=== PATIENT | female | born 1945 | race Caucasian/White ===

== ENCOUNTER → 2018-07-01 | Outpatient (CLI) | payer MEDICARE, OTHER ==
--- NOTE | 2018-07-01 15:43 | MR ---
EXAMINATION TYPE: MR cervical spine wo con DATE OF EXAM: 07/01/2018 COMPARISON: None HISTORY: Spinal stenosis, cervicothoracic region, stiffness TECHNIQUE: Multiplanar, multisequence images of the cervical spine were acquired. C2-C3: No evidence for degenerative disc disease. No disc bulge/herniation or protrusion. No Canal stenosis. Foramina are patent bilaterally. C3-C4: No disc herniation or significant stenosis. Some mild foraminal encroachment present due to un covertebral joint hypertrophy, facet arthropathy on the left. C4-C5: Bilateral foraminal encroachment is present. There is posterior extension of endplate disc com plex, broad-based posterior disc bulge causing mild anterior mass effect on the thecal sac. No signif icant central stenosis. C5-C6: Posterior extension of broad-based disc bulge causes mild anterior mass effect on the thecal s ac. There is some mild foraminal encroachment bilaterally. C6-C7: No evidence for degenerative disc disease. No disc bulge/herniation or protrusion. No Canal stenosis. Foramina are patent bilaterally. C7-T1: No evidence for degenerative disc disease. No disc bulge/herniation or protrusion. No Canal stenosis. Foramina are patent bilaterally. Cervical segments are intact. There is normal alignment. Cervical spinal cord is of normal signal. Multilevel spondylosis is present, there is endplate discogenic marrow signal change at C4-5, C5-6 w ith associated loss of disc height and signal compatible with disc desiccation and degenerative disc disease. Craniovertebral junction relationships are within normal limits. Some fluid signal present at the level of the vallecula. This may represent retained secretions. Thoracic spinal curvature is s uspected. IMPRESSION: Degenerative disc disease as described. Possible thoracic scoliosis. Additional findings above.
== END | disposition home or self-care (01) ==
LOC: RADMRIMAIN 12:20
PROVIDERS: ATTEND Psychiatry & Neurology Neurology
DX: M50.321 Other cervical disc degeneration at C4-C5 level (principal); M47.812 Spondylosis without myelopathy or radiculopathy, cervical region; M46.82 Other specified inflammatory spondylopathies, cervical region
CPT/HCPCS: 72141

== ENCOUNTER 2019-01-22 13:15 | Day surgery (SDC) | payer OTHER, MEDICARE ==
[2019-01-19 14:02] VITALS: BMI 31.7
[~2019-01-22 13:15] MED LIST: LACTATED RINGERS 1,000 ML IV SCH
[2019-01-22] MEDS ORDERED: ONDANSETRON 4 MG/2 ML VIAL IVP ONE (13:50)
[2019-01-22] MEDS ORDERED: LIDOCAINE 1% 20 ML VIAL (10MG/ML) FOR IV START INTRADERMA ONE (13:50)
[2019-01-22] MEDS ORDERED: DEXAMETHASONE SOD PHOSPHATE 10 MG/ML 1 ML VIAL IV ONE (13:50)
[2019-01-22 14:02] VITALS: TEMP 98.4
[2019-01-22] MEDS ORDERED: PROPOFOL 10 MG/ML 20 ML VIAL IV ONE (14:11)
--- NOTE | 2019-01-22 14:31 | P.PCN ---
Date of Procedure: 01/22/19 Procedure(s) Performed: BRIEF HISTORY: Patient is a 73-year-old pleasant female, scheduled for an elective colonoscopy as a part of evaluation of intermittent rectal bleeding and prior history of colon polyps. PROCEDURE PERFORMED: Colonoscopy. PREOPERATIVE DIAGNOSIS: History of colon polyps/rectal bleeding. IV sedation per Anesthesia. PROCEDURE: After informed consent was obtained, the patient, was brought into the endoscopy unit. IV sedation was administered by Anesthesia under continuous monitoring. Digital rectal examination was normal. Initially the Olympus CF-160 flexible video colonoscope was then inserted in the rectum, gradually advanced into the cecum without any difficulty. Careful examination was performed as the scope was gradually being withdrawn. Ileocecal valve and the appendiceal orifice were visualized and appeared normal. Prep was excellent. Mucosa of the cecum, ascending colon, transverse colon, descending colon, sigmoid colon, and rectum appeared normal. 2-3 mm small proximal rectal polyp status post removal by cold biopsy Scattered sigmoid diverticulosis seen. Retroflexion was performed in the rectum and no lesions were seen. The patient tolerated the procedure well. IMPRESSION: 3 mm proximal rectal polyp status post removal by biopsy This patient scattered sigmoidal diverticulosis RECOMMENDATIONS: Findings of this examination were discussed with the patient less her family. She was advised to follow with the biopsy results and have a repeat surveillance coloscopy in 5 years.
[2019-01-22 14:37] VITALS: RESP 16
[2019-01-22 14:51] VITALS: BP 154/84; PULSE 58
== END 2019-01-22 15:13 | disposition home or self-care (01) ==
LOC: ORWHC2ENDO 13:15
PROVIDERS: ATTEND Internal Medicine Gastroenterology
DX: K62.1 Rectal polyp (principal); K57.30 Diverticulosis of large intestine without perforation or abscess without bleeding; K62.5 Hemorrhage of anus and rectum; Z86.010 Personal history of colon polyps; I10 Essential (primary) hypertension; Z87.891 Personal history of nicotine dependence; Z90.5 Acquired absence of kidney; G20 Parkinson's disease; Z98.51 Tubal ligation status; Z79.1 Long term (current) use of non-steroidal anti-inflammatories (NSAID); Z79.899 Other long term (current) drug therapy; Z88.5 Allergy status to narcotic agent
CPT/HCPCS: 88305; 45380; J1100; J2405; J2704

== ENCOUNTER → 2019-04-02 | Outpatient (CLI) | payer MEDICARE ==
--- NOTE | 2019-04-02 12:53 | XR ---
EXAMINATION TYPE: XR ankle complete RT DATE OF EXAM: 04/02/2019 COMPARISON: NONE HISTORY: Pain TECHNIQUE: Frontal, lateral and oblique images of the right ankle are obtained. COMPARISON: None. FINDINGS: There is no acute fracture/dislocation evident. The joint spaces appear within normal albrecht its. Soft tissue swelling noted greatest laterally. IMPRESSION: There is no acute fracture or dislocation seen.
--- NOTE | 2019-04-02 13:20 | US ---
EXAMINATION TYPE: US venous doppler duplex LE RT DATE OF EXAM: 04/02/2019 1:15 PM COMPARISON: NONE CLINICAL HISTORY: DVT. rt leg pain SIDE PERFORMED: Right TECHNIQUE: The lower extremity deep venous system is examined utilizing real time linear array sonog javier with graded compression, doppler sonography and color-flow sonography. VESSELS IMAGED: External Iliac Vein (EIV) Common Femoral Vein Deep Femoral Vein Greater Saphenous Vein * Femoral Vein Popliteal Vein Small Saphenous Vein * Proximal Calf Veins (* superficial vessels) Right Leg: Negative for DVT IMPRESSION: No evidence for DVT at this time.
== END | disposition home or self-care (01) ==
LOC: RADUSWWP 12:25
PROVIDERS: ATTEND Psychiatry & Neurology Neurology
DX: M25.571 Pain in right ankle and joints of right foot (principal); S82.831A Other fracture of upper and lower end of right fibula, initial encounter for closed fracture; M25.471 Effusion, right ankle; I82.401 Acute embolism and thrombosis of unspecified deep veins of right lower extremity

== ENCOUNTER → 2019-05-04 | Outpatient (CLI) | payer MEDICARE | END | disposition home or self-care (01) | LOC: LABWHC1 11:35 | PROVIDERS: ATTEND Orthopaedic Surgery | DX: E55.9 Vitamin D deficiency, unspecified (principal); M25.571 Pain in right ankle and joints of right foot; G20 Parkinson's disease; M84.363A Stress fracture, right fibula, initial encounter for fracture | CPT/HCPCS: 36415; 82306 ==

== ENCOUNTER → 2019-07-06 | Outpatient (CLI) | payer MEDICARE, OTHER ==
--- NOTE | 2019-07-06 15:34 | XR ---
EXAMINATION TYPE: XR Hip Complete RT DATE OF EXAM: 07/06/2019 CLINICAL HISTORY: pain TECHNIQUE: AP and frogleg views of the right hip are obtained. COMPARISON: None. FINDINGS: There is no acute fracture/dislocation evident. The joint space appears mildly narrowed. . The overlying soft tissue appears unremarkable. IMPRESSION: 1. There is no acute fracture or dislocation. ICD 10 NO FRACTURE, INITIAL EVALUATION
== END | disposition home or self-care (01) ==
LOC: RADXRYALE 14:58
PROVIDERS: ATTEND Family Medicine
DX: M25.551 Pain in right hip (principal)
CPT/HCPCS: 73502

== ENCOUNTER → 2020-06-22 | Outpatient (CLI) | payer MEDICARE, OTHER ==
--- NOTE | 2020-06-23 09:08 | CT ---
EXAMINATION TYPE: CT abdomen and pelvis wo con DATE OF EXAM: 06/23/2020 COMPARISON: CT abdomen pelvis 08/30/2010 HISTORY: 75-year-old female LLQ pain and tenderness. Right upper quadrant abdominal tenderness. Llamas e in bowel habits and early satiety. Hx Parkinson's TECHNIQUE: Contiguous axial scanning of the abdomen and pelvis without IV contrast. Coronal and sagit miguel reconstructions performed. CT DLP: 1172 mGycm Automated exposure control for dose reduction was used. FINDINGS: Heart upper limits of normal size without pericardial effusion. Scattered LAD and RCA coronary calcif ications are present. Nonspecific 4.5 cm air cyst at the left base unchanged from 2011, either pneuma tocele or emphysematous cyst. Bilobed cyst within the posterior right hepatic dome redemonstrated measuring up to 3.8 cm, unchanged from 2011. Otherwise, noncontrast appearance of the liver, gallbladder, adrenal glands, right kidney with extrar enal pelvis, spleen, and pancreas show no gross abnormality. Some minimal nodular tissue within the left renal fossa remains unchanged from 2011. Mild to moderate aphthous carotid calcifications infrarenal abdominal aorta and mild within the proxi mal common iliac arteries. Mild stool burden. Sigmoid diverticulosis. No pericolonic inflammatory change. Bladder partially distended. Possible minimal perivesicular fat stranding along the anterior wall, ax ial image 99 and 80. Uterus anteverted. Both ovaries are visualized. Pelvic phlebolith. No abnormal f luid collection in the pelvis or pelvic lymphadenopathy. Bones: Moderate degenerative change right hip and mild at the left hip. Advanced degenerative disc di sease L5-S1 and moderate at L4-L5. Hypertrophic facet arthropathy lower lumbar spine with trace grade 1 anterolisthesis L4-L5. IMPRESSION: 1. ABSENT LEFT KIDNEY. 2. SIGMOID DIVERTICULOSIS WITHOUT ACUTE DIVERTICULITIS. 3. POSSIBLE MINIMAL PERIVESICULAR FAT STRANDING ALONG THE ANTERIOR BLADDER WALL. CORRELATE TO EXCLUDE CYSTITIS. 4. STABLE 3.8 CM RIGHT HEPATIC CYST, CAD, AND A PNEUMATOCELE OR EMPHYSEMATOUS CYST AT THE LEFT BASE.
== END | disposition home or self-care (01) ==
LOC: RADCTMAIN 14:50
PROVIDERS: ATTEND Family Medicine
DX: K57.30 Diverticulosis of large intestine without perforation or abscess without bleeding (principal); K76.89 Other specified diseases of liver; Z90.5 Acquired absence of kidney
CPT/HCPCS: 71250; 74176

== ENCOUNTER 2020-06-30 14:45 | Emergency (ER) | payer MEDICARE, OTHER ==
[2020-06-30 14:54] VITALS: RESP 18
--- NOTE | 2020-06-30 15:33 | XR ---
EXAMINATION TYPE: XR KUB DATE OF EXAM: 06/30/2020 3:21 PM CLINICAL HISTORY: Abdominal pain. TECHNIQUE: Two Upright KUB images of the abdomen are obtained. COMPARISON: CT June 22, 2020. FINDINGS: Scattered gas is seen in non-distended small bowel loops. Gas and fecal material is seen in non-distended colon. Underlying dextroconvex scoliosis centered about the lumbar spine redemonstrate d. No free air. No suspicious calcification. Lung bases show lateral left basilar linear scarring and /or atelectasis. Moderate to severe axial joint space loss and spurring right hip redemonstrated. IMPRESSION: Overall nonobstructive bowel gas pattern remains present. No significant change from recent CT.
--- NOTE | 2020-06-30 15:38 | ED ---
General Adult HPI - General Chief complaint: Abdominal Pain Stated complaint: Constipated Time Seen by Provider: 06/30/20 14:45 Source: patient, RN notes reviewed, old records reviewed Mode of arrival: ambulatory Limitations: no limitations - History of Present Illness Initial comments: This is a 75-year-old female presents emergency Department complaining that for the past 6 weeks she's had issues with constipation. Patient over the last 2 weeks ago it's really worse. Patient states she's taking quite a bit of medication to help with the bowel movements. Patient states she has not had a complete bowel movement quite a while but she is having small bowel movements all along. Patient states she has an appointment with Dr. kurtz next Friday but she states the pain continues to be there and she doesn't know if she can make it Friday. Patient denies any fever chills per patient denies any nausea vomiting. Patient denies chest pain difficult breathing shortness of breath. Patient denies dysuria hematuria urinary frequency. - Related Data Home Medications Medication Instructions Recorded Confirmed Carbidopa-Levodopa 25-100 mg 2 tab PO TID@0700,1200,1600 01/19/19 06/30/20 [Sinemet 25-100] Losartan Potassium [Cozaar] 100 mg PO DAILY 01/19/19 06/30/20 Naproxen Sodium [Aleve] 220 mg PO DAILY PRN 01/19/19 06/30/20 Turmeric Root Extract [Turmeric] 500 mg PO DAILY 01/19/19 06/30/20 Baclofen [Lioresal] 20 mg PO HS 06/30/20 06/30/20 Calcium 750mg 750 mg PO DAILY 06/30/20 06/30/20 Cholecalciferol [Vitamin D3 (25 25 mcg PO DAILY 06/30/20 06/30/20 Mcg = 1000 Iu)] Fish Oil/Dha/Epa [Fish Oil 1,200 1 cap PO DAILY 06/30/20 06/30/20 mg Fish Oil] Meloxicam [Mobic] 7.5 mg PO DAILY 06/30/20 06/30/20 Allergies Allergy/AdvReac Type Severity Reaction Status Date / Time morphine Allergy Rash/Hives Verified 06/30/20 16:13 Review of Systems ROS Statement: Those systems with pertinent positive or pertinent negative responses have been documented in the HPI. ROS Other: All systems not noted in ROS Statement are negative. Past Medical History Past Medical History: Hypertension, Neurologic Disorder, Renal Disease Additional Past Medical History / Comment(s): parkinsons,has mobility balance issues-uses cane when needed, has only rt kidney History of Any Multi-Drug Resistant Organisms: None Reported Past Surgical History: Appendectomy, Tubal Ligation Additional Past Surgical History / Comment(s): surgery for "floating" rt kidney Past Anesthesia/Blood Transfusion Reactions: Postoperative Nausea & Vomiting (PONV) Past Psychological History: No Psychological Hx Reported Smoking Status: Never smoker Past Alcohol Use History: Daily Past Drug Use History: None Reported - Past Family History Daughter(s) Family Medical History: Diabetes Mellitus General Exam - General Exam Comments Initial Comments: GENERAL: Patient is well-developed and well-nourished. Patient is nontoxic and well- hydrated and is in mild distress. ENT: Neck is soft and supple. No significant lymphadenopathy is noted. Oropharynx is clear. Moist mucous membranes. Neck has full range of motion without eliciting any pain. EYES: The sclera were anicteric and conjunctiva were pink and moist. Extraocular movements were intact and pupils were equal round and reactive to light. Eyelids were unremarkable. PULMONARY: Unlabored respirations. Good breath sounds bilaterally. No audible rales rhonchi or wheezing was noted. CARDIOVASCULAR: There is a regular rate and rhythm without any murmurs gallops or rubs. ABDOMEN: Soft and nontender with normal bowel sounds. SKIN: Skin is clear with no lesions or rashes and otherwise unremarkable. NEUROLOGIC: Patient is alert and oriented x3. Cranial nerves II through XII are grossly intact. Motor and sensory are also intact. Normal speech, volume and content. Symmetrical smile. MUSCULOSKELETAL: Normal extremities with adequate strength and full range of motion. No lower extremity swelling or edema. No calf tenderness. LYMPHATICS: No significant lymphadenopathy is noted PSYCHIATRIC: Normal psychiatric evaluation. Limitations: no limitations Course Vital Signs 06/30/20 14:47 Temperature 97.8 F Pulse Rate 63 Respiratory 18 Rate Blood Pressure 152/91 O2 Sat by Pulse 95 Oximetry Medical Decision Making - Medical Decision Making I reviewed the CAT scan 2 weeks ago and there was nothing on the CAT scan to explain the patient's pain. KUB shows no acute abnormality. Lab work was reviewed and was all normal. - Lab Data Result diagrams: 06/30/20 15:38 06/30/20 15:38 Lab Results 06/30/20 06/30/20 06/30/20 Range/Units 15:38 15:38 15:43 WBC 7.2 (3.8-10.6) k/uL RBC 4.17 (3.80-5.40) m/uL Hgb 13.9 (11.4-16.0) gm/dL Hct 41.2 (34.0-46.0) % MCV 98.8 (80.0-100.0) fL MCH 33.4 (25.0-35.0) pg MCHC 33.9 (31.0-37.0) g/dL RDW 12.3 (11.5-15.5) % Plt Count 228 (150-450) k/uL MPV 9.1 Neutrophils % 61 % Lymphocytes % 26 % Monocytes % 8 % Eosinophils % 2 % Basophils % 1 % Neutrophils # 4.4 (1.3-7.7) k/uL Lymphocytes # 1.9 (1.0-4.8) k/uL Monocytes # 0.6 (0-1.0) k/uL Eosinophils # 0.2 (0-0.7) k/uL Basophils # 0.0 (0-0.2) k/uL Sodium 141 (137-145) mmol/L Potassium 3.9 (3.5-5.1) mmol/L Chloride 102 (98-107) mmol/L Carbon Dioxide 30 (22-30) mmol/L Anion Gap 9 mmol/L BUN 22 H (7-17) mg/dL Creatinine 1.30 H (0.52-1.04) mg/dL Est GFR (CKD-EPI)AfAm 47 (>60 ml/min/1.73 sqM) Est GFR (CKD-EPI)NonAf 40 (>60 ml/min/1.73 sqM) Glucose 98 (74-99) mg/dL Calcium 10.5 H (8.4-10.2) mg/dL Total Bilirubin 0.8 (0.2-1.3) mg/dL AST 24 (14-36) U/L ALT 10 (4-34) U/L Alkaline Phosphatase 62 (38-126) U/L Total Protein 7.6 (6.3-8.2) g/dL Albumin 4.6 (3.5-5.0) g/dL Urine Color Light Yellow Urine Appearance Clear (Clear) Urine pH 6.5 (5.0-8.0) Ur Specific [place] 1.008 (1.001-1.035) Urine Protein Negative (Negative) Urine Glucose (UA) Negative (Negative) Urine Ketones Negative (Negative) Urine Blood Negative (Negative) Urine Nitrite Negative (Negative) Urine Bilirubin Negative (Negative) Urine Urobilinogen <2.0 (<2.0) mg/dL Ur Leukocyte Esterase Small H (Negative) Urine RBC 1 (0-5) /hpf Urine WBC 8 H (0-5) /hpf Ur Squamous Epith Cells <1 (0-4) /hpf Urine Bacteria Rare H (None) /hpf Urine Mucus Rare H (None) /hpf Disposition Clinical Impression: Abdominal pain Disposition: HOME SELF-CARE Instructions (If sedation given, give patient instructions): Abdominal Pain (ED) Is patient prescribed a controlled substance at d/c from ED?: No Referrals: Herman Zamora DO [Primary Care Provider] - 1-2 days Time of Disposition: 16:59
[2020-06-30 16:23] LABS: Basophils % (A) 1 %; Eosinophils # (A) 0.2 k/uL (0-0.7); Eosinophils % (A) 2 %; HCT 41.2 % (34.0-46.0); HGB 13.9 gm/dL (11.4-16.0); Lymphocytes # (A) 1.9 k/uL (1.0-4.8); Lymphocytes % (A) 26 %; MCH 33.4 pg (25.0-35.0); MCHC 33.9 g/dL (31.0-37.0); MCV 98.8 fL (80.0-100.0); Mean Platelet Volume 9.1; Monocytes # (A) 0.6 k/uL (0-1.0); Monocytes % (A) 8 %; Neutrophils # (A) 4.4 k/uL (1.3-7.7); Neutrophils % (A) 61 %; Platelet Count 228 k/uL (150-450); RBC 4.17 m/uL (3.80-5.40); RDW 12.3 % (11.5-15.5); WBC 7.2 k/uL (3.8-10.6)
[2020-06-30 16:39] LABS: Albumin 4.6 g/dL (3.5-5.0); Calcium 10.5 mg/dL (8.4-10.2); Potassium 3.9 mmol/L (3.5-5.1); Total Bilirubin 0.8 mg/dL (0.2-1.3); Total Protein 7.6 g/dL (6.3-8.2)
[2020-06-30 16:42] LABS: Appearance,Urine Clear (Clear); Bacteria,Urine Rare /hpf; Bilirubin,Urine Negative (Negative); Blood,Urine Negative (Negative); Color,Urine Light Yellow; Glucose,Urine (UA) Negative (Negative); Ketones,Urine Negative (Negative); Leukocyte Esterase,Urine Small (Negative); Mucus,Urine Rare /hpf; Nitrite,Urine Negative (Negative); PH, Urine 6.5 (5.0-8.0); Protein,Urine Negative (Negative); RBC,Urine 1 /hpf (0-5); Specific Gravity,Urine 1.008 (1.001-1.035); Squamous Epithelial Cell,Urine <1 /hpf (0-4); Urobilinogen,Urine <2.0 mg/dL (<2.0); WBC,Urine 8 /hpf (0-5)
[2020-06-30 17:07] VITALS: BP 138/84; PULSE 66; TEMP 97.7
== END 2020-06-30 17:16 | disposition home or self-care (01) ==
LOC: EC 14:45
DX: R10.9 Unspecified abdominal pain (principal); I10 Essential (primary) hypertension; G20 Parkinson's disease; Z79.899 Other long term (current) drug therapy; Z79.1 Long term (current) use of non-steroidal anti-inflammatories (NSAID); Z88.5 Allergy status to narcotic agent; Z98.51 Tubal ligation status; Z90.89 Acquired absence of other organs
CPT/HCPCS: 36415; 74018; 80053; 81001; 85025; 99284

== ENCOUNTER → 2020-11-16 | Outpatient (CLI) | payer MEDICARE, OTHER ==
--- NOTE | 2020-11-16 18:21 | MR ---
EXAMINATION TYPE: MR brain wo/w con DATE OF EXAM: 11/16/2020 COMPARISON: None HISTORY: Cerebellar lesion, possible supernumerary clear palsy, abnormal ataxia and discoordination CONTRAST: None TECHNIQUE: Multiplanar, multiecho imaging on a 3.0 Katlyn magnet is performed through the brain. Stud y is performed within 24 hours of arrival to the hospital. The craniovertebral junction is normal. The pituitary is normal. The cerebellum is atrophic. The re maining age brain has age related atrophy Diffusion-weighted imaging is performed. No abnormal hyperintensity is present to suggest an acute i ntracranial infarct or acute ischemic change. There are scattered punctate areas of hyperintensity on T2 and Inversion Recovery weighted sequences which are non-specific but can be related to microvascular ischemic changes. Ventricles and sulci are prominent for the patient age. No abnormal enhancement is evident. IMPRESSIONS: 1. Atrophy with scattered white matter changes which are nonspecific but can be related to microvascu lar ischemic change.
== END | disposition home or self-care (01) ==
LOC: RADMRIMAIN 10:36
PROVIDERS: ATTEND Psychiatry & Neurology Neurology
DX: G31.9 Degenerative disease of nervous system, unspecified (principal)
CPT/HCPCS: 70553; A9585

== ENCOUNTER → 2020-12-20 | Outpatient (CLI) | payer MEDICARE, OTHER ==
--- NOTE | 2020-12-20 13:04 | US ---
EXAMINATION TYPE: US carotid duplex BILAT DATE OF EXAM: 12/20/2020 COMPARISON: NONE CLINICAL HISTORY: I65.29 Occlusion and stenosis of unspecified carotid artery. EXAM MEASUREMENTS: RIGHT: Peak Systolic Velocity (PSV) cm/sec ----- Right CCA: 85.8 ----- Right ICA: 73.4 ----- Right ECA: 98.7 ICA/CCA ratio: 0.9 RIGHT: End Diastole cm/sec ----- Right CCA: 19.5 ----- Right ICA: 22.1 ----- Right ECA: 20.1 LEFT: Peak Systolic Velocity (PSV) cm/sec ----- Left CCA: 57.4 ----- Left ICA: 79.2 ----- Left ECA: 54.5 ICA/CCA ratio: 1.4 LEFT: End Diastole cm/sec ----- Left CCA: 13.8 ----- Left ICA: 24.7 ----- Left ECA: 10.3 VERTEBRALS (direction of flow): Right Vertebral: Antegrade Left Vertebral: Antegrade Rhythm: Normal Mild amount of plaque visualized. No elevated velocities, no significant stenosis IMPRESSION: No sonographic evidence for hemodynamically significant stenosis in the bilateral carotid arteries. Criteria for Assigning % of Stenosis / Diameter reduction (Estimation based on the indirect measurements of the internal carotid artery velocities (ICA PSV). 1. Normal (no stenosis)=ICA PSV < 125 cm/s: ratio < 2.0: ICA EDV<40 cm/s. 2. Less than 50% stenosis=ICA PSV < 125 cm/s: ratio < 2.0: ICA EDV<40 cm/s. 3. 50 to 69% stenosis=ICA PSV of 125 to 230 cm/s: ration 2.0 ? 4.0: ICA EDV 40-100 cm/s. 4. Greater than 70% stenosis to near occlusion= ICA PSV > 230 cm/s: ratio > 4.0: ICA EDV > 100 cm/s. 5. Near occlusion= ICA PSV velocities may be low or undetectable: variable ratio and ICA EDV. 6. Total occlusion=unable to detect flow.
== END | disposition home or self-care (01) ==
LOC: RADUSWWP 10:47
PROVIDERS: ATTEND Psychiatry & Neurology Neurology
DX: I65.23 Occlusion and stenosis of bilateral carotid arteries (principal)
CPT/HCPCS: 93880

== ENCOUNTER 2021-10-07 11:01 | Emergency (ER) | payer MEDICARE ==
[2021-10-07 11:10] VITALS: RESP 18; TEMP 97.1
[2021-10-07] MEDS ORDERED: ACETAMINOPHEN TAB 325 MG TAB PO STA (11:29)
[2021-10-07] MEDS ORDERED: CYCLOBENZAPRINE 10 MG TAB PO STA (11:30)
[2021-10-07] MEDS ORDERED: LIDOCAINE 5% PATCH TOPICAL SCH (11:30)
--- NOTE | 2021-10-07 11:45 | CT ---
EXAMINATION TYPE: CT brain skinny barone DATE OF EXAM: 10/07/2021 COMPARISON: None HISTORY: unwitnessed fall CT DLP: 1404.3 mGycm, Automated exposure control for dose reduction was used. CONTRAST: Patient injected with 0 mL of Isovue 300. CT of the brain is performed utilizing 3 mm thick sections through the posterior fossa and 3 mm thick sections through the remaining calvarium. Study is performed within 24 hours of arrival to the hospital. No abnormal hyperdensity is present to suggest an acute intracranial hemorrhage. No mass lesion is evident. No acute infarcts are evident. Follow up exams with MRI can be performed as clinically indicated. Ventricles and sulci are prominent for the patient age. Paranasal sinuses and mastoid air cells within the [id number] are clear. Soft tissue swelling is o merlin the occipital region near the vertex. IMPRESSIONS: 1. No acute intracranial process. 2. Soft tissue swelling occipital region near the vertex. No underlying fracture is evident. CT cervical spine. COMPARISON: None CT of the cervical spine is performed in the axial plane at 2 mm thick sections. Reconstructed image s in the coronal, and sagittal plane are reviewed on the computer. No acute fractures are evident. Vertebral body alignment is normal. Diffuse disc space narrowing is present. Vertebral body heights are preserved. No spinal canal stenosis is evident. Foraminal narrowing is from uncovertebral joint hypertrophy IMPRESSIONS: 1. No acute osseous abnormality cervical spine
--- NOTE | 2021-10-07 12:02 | XR ---
EXAMINATION TYPE: XR lumbar spine 2 or 3V DATE OF EXAM: 10/07/2021 COMPARISON: None HISTORY: Pain TECHNIQUE: Three-view lumbar spine FINDINGS: There are 5 lumbar-type vertebral bodies. The pedicles are intact. There is loss of disc at L5-S1. Narrowing of the L4-5 and L3-4 disc height posteriorly is evident. Vertebral body heights are preserved. Alignment appears preserved. IMPRESSION: 1. No acute osseous abnormality lumbar spine. Follow-up can be performed as clinically indicated.
--- NOTE | 2021-10-07 12:03 | ED ---
Fall HPI - General Chief Complaint: Fall Stated Complaint: Fall-head injury Time Seen by Provider: 10/07/21 11:12 Source: patient, family, EMS Mode of arrival: EMS - History of Present Illness Initial Comments: Patient is a 76-year-old female presents for evaluation of fall. The fall was unwitnessed. Patient's came home from [place] to find his on the couch who had just called 911. Patient has short-term memory loss from Parkinson's disease and doesn't remember the fall. It is uncertain where the patient fell. It is possible that she fell down carpeted stairs to the basement which has cement floor. Patient is not on blood thinners. Loss of consciousness is unknown. Patient has a bump on the back of her head. She denies headache, lightheadedness, dizziness, blurry vision, and double vision. No chest pain or shortness of breath. Patient reports low back and buttock pain near the tailbone region. No neck pain. Patient does not fall often but has f mick lately due to progression of Parkinson's. She uses a cane to walk around at home. No history of myocardial infarction or arrhythmia. No burning with urination or increased urinary urgency/frequency. Of note, patient had a cataract surgery this past June and since the surgery is very sensitive to light in her eyes. - Related Data Home Medications Medication Instructions Recorded Confirmed Carbidopa-Levodopa 25-100 mg 2 tab PO TID@0700,1200,1600 01/19/19 06/30/20 [Sinemet 25-100] Losartan Potassium [Cozaar] 100 mg PO DAILY 01/19/19 06/30/20 Naproxen Sodium [Aleve] 220 mg PO DAILY PRN 01/19/19 06/30/20 Turmeric Root Extract [Turmeric] 500 mg PO DAILY 01/19/19 06/30/20 Baclofen [Lioresal] 20 mg PO HS 06/30/20 06/30/20 Calcium 750mg 750 mg PO DAILY 06/30/20 06/30/20 Cholecalciferol [Vitamin D3 (25 25 mcg PO DAILY 06/30/20 06/30/20 Mcg = 1000 Iu)] Fish Oil/Dha/Epa [Fish Oil 1,200 1 cap PO DAILY 06/30/20 06/30/20 mg Fish Oil] Meloxicam [Mobic] 7.5 mg PO DAILY 06/30/20 06/30/20 Previous Rx's Medication Instructions Recorded Lidocaine 5% Patch [Lidoderm 5% 1 patch TOPICAL DAILY #5 patch 10/07/21 Patch] Allergies Allergy/AdvReac Type Severity Reaction Status Date / Time morphine Allergy Rash/Hives Verified 06/30/20 16:13 Review of Systems ROS Statement: Those systems with pertinent positive or pertinent negative responses have been documented in the HPI. ROS Other: All systems not noted in ROS Statement are negative. Past Medical History Past Medical History: Hypertension, Neurologic Disorder, Renal Disease Additional Past Medical History / Comment(s): parkinsons,has mobility balance issues-uses cane when needed, has only rt kidney History of Any Multi-Drug Resistant Organisms: None Reported Past Surgical History: Appendectomy, Tubal Ligation Additional Past Surgical History / Comment(s): surgery for "floating" rt kidney Past Anesthesia/Blood Transfusion Reactions: Postoperative Nausea & Vomiting (PONV) Past Psychological History: No Psychological Hx Reported Smoking Status: Never smoker Past Alcohol Use History: Daily Past Drug Use History: None Reported - Past Family History Daughter(s) Family Medical History: Diabetes Mellitus General Exam Limitations: altered mental status General appearance: alert, in no apparent distress Head exam: Present: normocephalic, other (Hematoma in the right occipital region. No abrasion or laceration is appreciated) Eye exam: Present: normal appearance, PERRL, EOMI. Absent: scleral icterus, conjunctival injection, periorbital swelling Neck exam: Present: normal inspection, full ROM. Absent: tenderness Respiratory exam: Present: normal lung sounds bilaterally. Absent: respiratory distress, wheezes, rales, rhonchi, stridor Cardiovascular Exam: Present: regular rate, normal rhythm, normal heart sounds. Absent: systolic murmur, diastolic murmur, rubs, gallop, clicks GI/Abdominal exam: Present: soft, normal bowel sounds. Absent: distended, tenderness, guarding, rebound, rigid Back exam: Present: normal inspection, vertebral tenderness (Sacral region). Absent: muscle spasm, paraspinal tenderness Neurological exam: Present: alert, oriented X3, CN II-XII intact Psychiatric exam: Present: normal affect, normal mood Skin exam: Present: warm, dry, intact, normal color. Absent: rash Course Vital Signs 10/07/21 10/07/21 10/07/21 11:02 12:14 13:32 Temperature 97.1 F L Pulse Rate 93 90 92 Respiratory 18 18 18 Rate Blood Pressure 201/104 194/94 166/96 O2 Sat by Pulse 96 96 94 L Oximetry Medical Decision Making - Medical Decision Making This is a 76-year-old female who presents for evaluation of fall. The fall was unwitnessed in her home. Patient has a hematoma in the right occipital region. No abrasion or lacerations appreciated. She is not on blood thinners. She does not have a headache or visual symptoms. She has lower back and tailbone pain. CT of the brain and C-spine was obtained which shows no acute intracranial process. There is soft tissue swelling in the occipital region near the vertex with no underlying fracture. There are no acute abnormalities of the cervical spine. Lumbar, sacral, coccyx x-rays were obtained which were negative for acute process. Patient has history of Parkinson disease which has been progressing causing her increased difficulty with walking. Other etiologies of fall or explored. EKG shows sinus rhythm with no ST elevation or depression. Laboratory studies were obtained. Patient has elevated white count at 16.7. She denies steroid use. Urinalysis is not concerning for infection. Patient does not have burning with urination. Blood pressure remained elevated in the emergency department. Patient and her state she took her losartan early this morning. With blood pressure at 194/94 patient was given a small dose of IV hydralazine with little improvement. Patient then given IV labetalol which she responded to appropriate pressure 166/96. Patient's states that her pressure normally runs in the 140s/80s. He states it was checked last week at her primary care checkup and at this time was found to be in the 140s/80s. Patient has allergy to morphine. Dilaudid allergy is unknown per patient and her . Patient takes a muscle relaxer at home which she tolerates well therefore in the emergency department pain was treated with Tylenol, a muscle relaxer, and lidocaine patch. This did not control patient's pain. She was then given a small dose of fentanyl which resulted in significant relief of pain. Patient was able to ambulate with the help of her and nurse to use the restroom. Patient ambulated well with no issue. At this time it appears that white blood cell count is elevated due to acute stress reaction. Patient's states that her daughters are home and are going to spend the night to help take care physician through the rest of the day and night. Patient will be discharged with instruction to follow up with her primary care provider for repeat white cell count. Patient already has muscle relaxers for her back pain home. She is instructed to take Tylenol for pain. Patient and her verbalize understanding and are agreeable to this plan. Dr. Rutherford is m attending. - Lab Data Result diagrams: 10/07/21 14:24 10/07/21 14:24 Lab Results 10/07/21 10/07/21 10/07/21 Range/Units 14:15 14:24 14:24 WBC 16.7 H (3.8-10.6) k/uL RBC 3.89 (3.80-5.40) m/uL Hgb 13.1 (11.4-16.0) gm/dL Hct 39.0 (34.0-46.0) % MCV 100.2 H (80.0-100.0) fL MCH 33.5 (25.0-35.0) pg MCHC 33.5 (31.0-37.0) g/dL RDW 11.6 (11.5-15.5) % Plt Count 199 (150-450) k/uL MPV 8.0 Neutrophils % 90 % Lymphocytes % 5 % Monocytes % 4 % Eosinophils % 1 % Basophils % 0 % Neutrophils # 15.0 H (1.3-7.7) k/uL Lymphocytes # 0.8 L (1.0-4.8) k/uL Monocytes # 0.6 (0-1.0) k/uL Eosinophils # 0.1 (0-0.7) k/uL Basophils # 0.1 (0-0.2) k/uL Sodium 142 (137-145) mmol/L Potassium 4.0 (3.5-5.1) mmol/L Chloride 109 H (98-107) mmol/L Carbon Dioxide 24 (22-30) mmol/L Anion Gap 9 mmol/L BUN 29 H (7-17) mg/dL Creatinine 0.99 (0.52-1.04) mg/dL Est GFR (CKD-EPI)AfAm 64 (>60 ml/min/1.73 sqM) Est GFR (CKD-EPI)NonAf 56 (>60 ml/min/1.73 sqM) Glucose 118 H (74-99) mg/dL Calcium 9.3 (8.4-10.2) mg/dL Magnesium 2.0 (1.6-2.3) mg/dL Total Bilirubin 0.6 (0.2-1.3) mg/dL AST 24 (14-36) U/L ALT <6 (4-34) U/L Alkaline Phosphatase 81 (38-126) U/L Troponin I (0.000-0.034) ng/mL Total Protein 6.8 (6.3-8.2) g/dL Albumin 4.0 (3.5-5.0) g/dL Urine Color Light Yellow Urine Appearance Clear (Clear) Urine pH 7.0 (5.0-8.0) Ur Specific [place] 1.008 (1.001-1.035) Urine Protein Negative (Negative) Urine Glucose (UA) Negative (Negative) Urine Ketones Negative (Negative) Urine Blood Negative (Negative) Urine Nitrite Negative (Negative) Urine Bilirubin Negative (Negative) Urine Urobilinogen <2.0 (<2.0) mg/dL Ur Leukocyte Esterase Trace H (Negative) Urine RBC 3 (0-5) /hpf Urine WBC 5 (0-5) /hpf Ur Squamous Epith Cells 1 (0-4) /hpf Urine Bacteria Rare H (None) /hpf Urine Mucus Rare H (None) /hpf Coronavirus (PCR) (Not Detectd) Influenza Type A RNA (Not Detectd) Influenza Type B (PCR) (Not Detectd) 10/07/21 10/07/21 10/07/21 Range/Units 14:24 15:32 15:32 WBC (3.8-10.6) k/uL RBC (3.80-5.40) m/uL Hgb (11.4-16.0) gm/dL Hct (34.0-46.0) % MCV (80.0-100.0) fL MCH (25.0-35.0) pg MCHC (31.0-37.0) g/dL RDW (11.5-15.5) % Plt Count (150-450) k/uL MPV Neutrophils % % Lymphocytes % % Monocytes % % Eosinophils % % Basophils % % Neutrophils # (1.3-7.7) k/uL Lymphocytes # (1.0-4.8) k/uL Monocytes # (0-1.0) k/uL Eosinophils # (0-0.7) k/uL Basophils # (0-0.2) k/uL Sodium (137-145) mmol/L Potassium (3.5-5.1) mmol/L Chloride (98-107) mmol/L Carbon Dioxide (22-30) mmol/L Anion Gap mmol/L BUN (7-17) mg/dL Creatinine (0.52-1.04) mg/dL Est GFR (CKD-EPI)AfAm (>60 ml/min/1.73 sqM) Est GFR (CKD-EPI)NonAf (>60 ml/min/1.73 sqM) Glucose (74-99) mg/dL Calcium (8.4-10.2) mg/dL Magnesium (1.6-2.3) mg/dL Total Bilirubin (0.2-1.3) mg/dL AST (14-36) U/L ALT (4-34) U/L Alkaline Phosphatase (38-126) U/L Troponin I <0.012 (0.000-0.034) ng/mL Total Protein (6.3-8.2) g/dL Albumin (3.5-5.0) g/dL Urine Color Urine Appearance (Clear) Urine pH (5.0-8.0) Ur Specific [place] (1.001-1.035) Urine Protein (Negative) Urine Glucose (UA) (Negative) Urine Ketones (Negative) Urine Blood (Negative) Urine Nitrite (Negative) Urine Bilirubin (Negative) Urine Urobilinogen (<2.0) mg/dL Ur Leukocyte Esterase (Negative) Urine RBC (0-5) /hpf Urine WBC (0-5) /hpf Ur Squamous Epith Cells (0-4) /hpf Urine Bacteria (None) /hpf Urine Mucus (None) /hpf Coronavirus (PCR) Not Detected (Not Detectd) Influenza Type A RNA Not Detected (Not Detectd) Influenza Type B (PCR) Not Detected (Not Detectd) Disposition Clinical Impression: Fall, Back pain, History of Parkinson's disease, Hypertension, Leukocytosis Disposition: HOME SELF-CARE Condition: Good Instructions (If sedation given, give patient instructions): Fall Prevention for Older Adults (ED) Additional Instructions: Please apply lidocaine patches as directed. Please follow-up with your primary care provider in one to 2 days for repeat labs to measure your white blood cell count. Return to the emergency department if you experience new, concerning, or worsening symptoms. Prescriptions: Lidocaine 5% Patch [Lidoderm 5% Patch] 1 patch TOPICAL DAILY #5 patch Is patient prescribed a controlled substance at d/c from ED?: No Referrals: Herman Zamora DO [Primary Care Provider] - 1-2 days Time of Disposition: 13:48
--- NOTE | 2021-10-07 12:06 | XR ---
EXAMINATION TYPE: XR sacrum coccyx DATE OF EXAM: 10/07/2021 COMPARISON: None HISTORY: Fall, pain TECHNIQUE: Sacrum and coccyx are examined in 4 views FINDINGS: Sacroiliac joints appear patent. Sacrum as visualized appears intact. No acute fractures ar e evident. Coccyx appears unremarkable. IMPRESSION: 1. Sacrum and coccyx as visualized appear intact. Follow-up can be performed as clinically indicated .
[2021-10-07] MEDS ORDERED: hydrALAZINE HCL 20 MG/ML 1 ML VIAL IVP STA (12:23)
[2021-10-07] MEDS ORDERED: LABETALOL 5 MG/ML VIAL MDV IVP STA (13:13)
[2021-10-07 14:29] LABS: Basophils # (A) 0.1 k/uL (0-0.2); Basophils % (A) 0 %; Eosinophils # (A) 0.1 k/uL (0-0.7); Eosinophils % (A) 1 %; HGB 13.1 gm/dL (11.4-16.0); Lymphocytes # (A) 0.8 k/uL (1.0-4.8); Lymphocytes % (A) 5 %; MCH 33.5 pg (25.0-35.0); MCHC 33.5 g/dL (31.0-37.0); MCV 100.2 fL (80.0-100.0); Monocytes # (A) 0.6 k/uL (0-1.0); Monocytes % (A) 4 %; Neutrophils % (A) 90 %; Platelet Count 199 k/uL (150-450); RBC 3.89 m/uL (3.80-5.40); RDW 11.6 % (11.5-15.5); WBC 16.7 k/uL (3.8-10.6)
[2021-10-07 15:02] LABS: Appearance,Urine Clear (Clear); Bacteria,Urine Rare /hpf; Bilirubin,Urine Negative (Negative); Blood,Urine Negative (Negative); Color,Urine Light Yellow; Glucose,Urine (UA) Negative (Negative); Ketones,Urine Negative (Negative); Leukocyte Esterase,Urine Trace (Negative); Mucus,Urine Rare /hpf; Nitrite,Urine Negative (Negative); Protein,Urine Negative (Negative); RBC,Urine 3 /hpf (0-5); Specific Gravity,Urine 1.008 (1.001-1.035); Squamous Epithelial Cell,Urine 1 /hpf (0-4); Urobilinogen,Urine <2.0 mg/dL (<2.0); WBC,Urine 5 /hpf (0-5)
[2021-10-07 15:05] LABS: ALT <6 U/L (4-34); AST 24 U/L (14-36); African American GFR (CKD) 64 (>60 ml/min/1.73 sqM); Alkaline Phosphatase 81 U/L (38-126); Anion Gap 9 mmol/L; Blood Urea Nitrogen 29 mg/dL (7-17); Calcium 9.3 mg/dL (8.4-10.2); Carbon Dioxide 24 mmol/L (22-30); Chloride 109 mmol/L (98-107); Glucose 118 mg/dL (74-99); Non-African American GFR(CKD) 56 (>60 ml/min/1.73 sqM); Sodium 142 mmol/L (137-145); Total Bilirubin 0.6 mg/dL (0.2-1.3); Total Protein 6.8 g/dL (6.3-8.2)
[2021-10-07] MEDS ORDERED: fentaNYL (PF) 50 MCG/ML 2 ML AMP IVP STA (15:20)
[2021-10-07 17:02] VITALS: BP 124/70; PULSE 88
== END 2021-10-07 17:02 | disposition home or self-care (01) ==
LOC: EC 11:01
DX: G20 Parkinson's disease (principal); D72.829 Elevated white blood cell count, unspecified; I10 Essential (primary) hypertension; Z20.822 Contact with and (suspected) exposure to COVID-19; Z88.5 Allergy status to narcotic agent; W10.9XXA Fall (on) (from) unspecified stairs and steps, initial encounter
CPT/HCPCS: 36415; 93005; 80053; 83735; 84484; 85025; 81001; 87502; 87635; 72100; 72220; 70450; 72125; 96374; 96375; 99285; J0360; J3010

== ENCOUNTER 2023-05-07 11:59 | Observation (INO) | payer MEDICARE, OTHER ==
--- NOTE | 2023-05-07 12:32 | ED ---
General Adult HPI - General Chief complaint: Weakness Stated complaint: Hypotension Time Seen by Provider: 05/07/23 12:07 Source: patient, family, EMS Mode of arrival: EMS - History of Present Illness Initial comments: Dictation was produced using [employer] dictation software. please excuse any grammatical, word or spelling errors. Chief Complaint: 78-year-old female presents emergency department for weakness and hypertension History of Present Illness: 70-year-old female she has history of Parkinson's dementia she is unable to provide history present illness. is at the bedside per fights the HPI. Patient over the last several months has been dougherty ving progressive Parkinson's dementia to the point where she is nonverbal and is gravely disabled. to patient to neurologist office for checkup. They were going to appointment she is being discharged and while leaving she had an episode where she became very faint and fell to the ground but did not lose consciousness. She did not harm herself during the fall. She does not take any antiplatelet medications. reports that for the last week and a half she's been having weakness poor oral intake. There was concern about her blood pressure at the neurologist office. The ROS documented in this emergency department record has been reviewed and confirmed by me. Those systems with pertinent positive or negative responses have been documented in the HPI. All other systems are other negative and/or noncontributory. - Related Data Home Medications Medication Instructions Recorded Confirmed Carbidopa-Levodopa 25-100 mg 2 tab PO TID@0600,1100,1500 01/19/19 05/07/23 [Sinemet 25-100] Naproxen Sodium [Aleve] 220 mg PO DAILY PRN 01/19/19 05/07/23 Escitalopram [Lexapro] 5 mg PO DAILY@1200 05/07/23 05/07/23 Meloxicam [Mobic] 15 mg PO HS 05/07/23 05/07/23 Allergies Allergy/AdvReac Type Severity Reaction Status Date / Time morphine Allergy Rash/Hives Verified 05/07/23 14:09 Review of Systems ROS Statement: Those systems with pertinent positive or pertinent negative responses have been documented in the HPI. ROS Other: All systems not noted in ROS Statement are negative. Past Medical History Past Medical History: Hypertension, Neurologic Disorder, Renal Disease Additional Past Medical History / Comment(s): parkinsons,has mobility balance issues-uses cane when needed, has only rt kidney History of Any Multi-Drug Resistant Organisms: None Reported Past Surgical History: Appendectomy, Tubal Ligation Additional Past Surgical History / Comment(s): surgery for "floating" rt kidney Past Anesthesia/Blood Transfusion Reactions: Postoperative Nausea & Vomiting (PONV) Past Psychological History: No Psychological Hx Reported Smoking Status: Never smoker Past Alcohol Use History: Daily Past Drug Use History: None Reported - Past Family History Daughter(s) Family Medical History: Diabetes Mellitus General Exam - General Exam Comments Initial Comments: PHYSICAL EXAM: General Impression: Alert, not in acute distress HEENT: Normocephalic atraumatic, extra-ocular movements intact, pupils equal and reactive to light bilaterally, dry mucous membranes Cardiovascular: Heart regular rate and rhythm Chest: Able to complete full sentences, no retractions, no tachypnea Abdomen: abdomen soft, non-tender, non-distended, no organomegaly Musculoskeletal: Pulses present and equal in all extremities, no peripheral edema Motor: no focal deficits noted Neurological: CN II-XII grossly intact, no focal motor or sensory deficits noted Skin: Intact with no visualized rashes Psych: Normal affect and mood Course Vital Signs 05/07/23 05/07/23 12:01 14:25 Temperature 98.1 F Pulse Rate 59 L 80 Respiratory 18 18 Rate Blood Pressure 89/49 162/76 O2 Sat by Pulse 99 100 Oximetry EKG Findings - EKG Comments: EKG Findings:: My EKG interpretation: Ventricular rate 67, sinus rhythm,. Interval 169, QRS 80, QTC 438. No MO prolongation, no QTC prolongation, no ST or T-wave changes noted. Overall, this EKG is unremarkable Medical Decision Making - Medical Decision Making Was pt. sent in by a medical professional or institution (, PA, INDUSTRIAL PROPERTY APPRAISER, urgent care, hospital, or assisted...) When possible be specific @ -No Did you speak to anyone other than the patient for history (EMS, parent, family, police, friend...)? What history was obtained from this source @ -No Did you review nursing and triage notes (agree or disagree)? Why? @ -I reviewed and agree with nursing and triage notes Were old charts reviewed (outside hosp., previous admission, EMS record, old EKG, old radiological studies, urgent care reports/EKG's, assisted records)? Report findings @ -No old charts were reviewed Differential Diagnosis (chest pain, altered mental status, abdominal pain women, abdominal pain men, vaginal bleeding, musculoskeletal, weakness, fever, dyspnea, syncope, headache, dizziness, GI bleed, back pain, seizure, CVA, palpatations, mental health)? @ -Differential Syncope: Valvular disease, hypertrophic cardiomyopathy, pulmonary embolism, tamponade, tachycardia, bradycardia, NM, hypovolemia, hemorrhage, dissection, anemia, intra cranial hemorrhage, seizure, hypoglycemia, carbon monoxide poisoning, this is not meant to be an all-inclusive list. EKG interpreted by me (3pts min.). @ -See above X-rays interpreted by me (1pt min.). @ -Chest x-ray is nonacute CT interpreted by me (1pt min.). @ -Computed tomography scan of the brain shows no acute processes U/S interpreted by me (1pt. min.). @ -None done What testing was considered but not performed or refused? (CT, X-rays, U/S, labs)? Why? @ -None What meds were considered but not given or refused? Why? @ -None Did you discuss the management of the patient with other professionals (professionals i.e. , PA, INDUSTRI[employer]ERTY [employer]ER, lab, RT, psych nurse, sexual assault social worker, multi spindle operator, teacher, structural engineering drafting officer, child welfare caseworker)? Give summary @ -Case discussed with hospitalist for admission Was smoking cessation discussed for >3mins.? @ -No Was critical care preformed (if so, how long)? @ -No Were there social determinants of health that impacted care today? How? (Homelessness, low income, unemployed, alcoholism, drug addiction, transpor tation, low edu. Level, literacy, decrease access to med. care, [facility], rehab)? @ -No Was there de-escalation of care discussed even if they declined (Discuss DNR or withdrawal of care, Hospice)? DNR status @ -No What co-morbidities impacted this encounter? (DM, HTN, Smoking, COPD, CAD, Cancer, CVA, ARF, Chemo, Hep., AIDS, mental health diagnosis, sleep apnea, morbid obesity)? @ -None Was patient admitted / discharged? Hospital course, mention meds given and route, prescriptions, significant lab abnormalities, going to OR and other pertinent info. @ -78-year-old female presents emergency department for episode of presyncope. Initial vital signs showed blood pressure of 89/49. She did have some symptoms of hypotension. Rest of vital signs are unremarkable. Laboratory evaluation obtained. CBC, metabolic panel is unremarkable. Urinalysis shows findings consistent with urinary tract infection she is given IV fluids. Monitor the emergency department for couple hours reevaluated at the bedside at 3:30 PM her disposition options were discussed she still feeling symptomatic and would prefer to be admitted observation for further medical monitoring and treatment. A ceftriaxone. Clinical presentation does not suggest severe sepsis. Undiagnosed new problem with uncertain prognosis? @ -No Drug Therapy requiring intensive monitoring for toxicity (Heparin, Nitro, Insulin, Cardizem)? @ -No Were any procedures done? @ -No Diagnosis/symptom? Acute, or Chronic, or Acute on Chronic? Uncomplicated (without systemic symptoms) or Complicated (systemic symptoms)? @ -UTI, presyncope Side effects of treatment? @ -No Exacerbation, Progression, or Severe Exacerbation? @ -No Poses a threat to life or bodily function? How? (Chest pain, USA, NM, pneumonia, PE, COPD, DKA, ARF, appy, cholecystitis, CVA, Diverticulitis, Homicidal, Suicidal, threat to staff... and all critical care pts) @ -yes - Lab Data Result diagrams: 05/07/23 12:22 05/07/23 12:22 Lab Results 05/07/23 05/07/23 05/07/23 Range/Units 12:22 12:22 12:22 WBC 7.3 (3.8-10.6) k/uL RBC 3.64 L (3.80-5.40) m/uL Hgb 12.0 (11.4-16.0) gm/dL Hct 36.0 (34.0-46.0) % MCV 98.8 (80.0-100.0) fL MCH 32.9 (25.0-35.0) pg MCHC 33.3 (31.0-37.0) g/dL RDW 12.2 (11.5-15.5) % Plt Count 234 (150-450) k/uL MPV 8.3 Neutrophils % 76 % Lymphocytes % 15 % Monocytes % 7 % Eosinophils % 1 % Basophils % 0 % Neutrophils # 5.5 (1.3-7.7) k/uL Lymphocytes # 1.1 (1.0-4.8) k/uL Monocytes # 0.5 (0-1.0) k/uL Eosinophils # 0.1 (0-0.7) k/uL Basophils # 0.0 (0-0.2) k/uL Sodium 137 (137-145) mmol/L Potassium 4.5 (3.5-5.1) mmol/L Chloride 107 (98-107) mmol/L Carbon Dioxide 22 (22-30) mmol/L Anion Gap 8 mmol/L BUN 26 H (7-17) mg/dL Creatinine 1.26 H (0.52-1.04) mg/dL Est GFR (CKD-EPI)AfAm 47 (>60 ml/min/1.73 sqM) Est GFR (CKD-EPI)NonAf 41 (>60 ml/min/1.73 sqM) Glucose 96 (74-99) mg/dL Plasma Lactic Acid Jovani 1.0 (0.7-2.0) mmol/L Calcium 8.8 (8.4-10.2) mg/dL Magnesium 2.2 (1.6-2.3) mg/dL Total Bilirubin 0.7 (0.2-1.3) mg/dL AST 15 (14-36) U/L ALT 7 (4-34) U/L Alkaline Phosphatase 65 (38-126) U/L Ammonia <9 (<30) umol/L Total Protein 6.0 L (6.3-8.2) g/dL Albumin 3.5 (3.5-5.0) g/dL Urine Color Urine Appearance (Clear) Urine pH (5.0-8.0) Ur Specific [place] (1.001-1.035) Urine Protein (Negative) Urine Glucose (UA) (Negative) Urine Ketones (Negative) Urine Blood (Negative) Urine Nitrite (Negative) Urine Bilirubin (Negative) Urine Urobilinogen (<2.0) mg/dL Ur Leukocyte Esterase (Negative) Urine RBC (0-5) /hpf Urine WBC (0-5) /hpf Ur Squamous Epith Cells (0-4) /hpf Urine Mucus (None) /hpf 05/07/23 Range/Units 14:55 WBC (3.8-10.6) k/uL RBC (3.80-5.40) m/uL Hgb (11.4-16.0) gm/dL Hct (34.0-46.0) % MCV (80.0-100.0) fL MCH (25.0-35.0) pg MCHC (31.0-37.0) g/dL RDW (11.5-15.5) % Plt Count (150-450) k/uL MPV Neutrophils % % Lymphocytes % % Monocytes % % Eosinophils % % Basophils % % Neutrophils # (1.3-7.7) k/uL Lymphocytes # (1.0-4.8) k/uL Monocytes # (0-1.0) k/uL Eosinophils # (0-0.7) k/uL Basophils # (0-0.2) k/uL Sodium (137-145) mmol/L Potassium (3.5-5.1) mmol/L Chloride (98-107) mmol/L Carbon Dioxide (22-30) mmol/L Anion Gap mmol/L BUN (7-17) mg/dL Creatinine (0.52-1.04) mg/dL Est GFR (CKD-EPI)AfAm (>60 ml/min/1.73 sqM) Est GFR (CKD-EPI)NonAf (>60 ml/min/1.73 sqM) Glucose (74-99) mg/dL Plasma Lactic Acid Jovani (0.7-2.0) mmol/L Calcium (8.4-10.2) mg/dL Magnesium (1.6-2.3) mg/dL Total Bilirubin (0.2-1.3) mg/dL AST (14-36) U/L ALT (4-34) U/L Alkaline Phosphatase (38-126) U/L Ammonia (<30) umol/L Total Protein (6.3-8.2) g/dL Albumin (3.5-5.0) g/dL Urine Color Light Yellow Urine Appearance Cloudy H (Clear) Urine pH 5.5 (5.0-8.0) Ur Specific [place] 1.017 (1.001-1.035) Urine Protein Trace H (Negative) Urine Glucose (UA) Negative (Negative) Urine Ketones Trace H (Negative) Urine Blood Negative (Negative) Urine Nitrite Negative (Negative) Urine Bilirubin Negative (Negative) Urine Urobilinogen <2.0 (<2.0) mg/dL Ur Leukocyte Esterase Large H (Negative) Urine RBC 4 (0-5) /hpf Urine WBC 40 H (0-5) /hpf Ur Squamous Epith Cells 3 (0-4) /hpf Urine Mucus Rare H (None) /hpf Disposition Clinical Impression: Pre-syncope, UTI (urinary tract infection) Disposition: ADMITTED IP TO THIS HOSP Condition: Fair Referrals: Herman Zamora DO [Primary Care Provider] - 1-2 days Decision Time: 15:51
[2023-05-07 12:44] LABS: Basophils % (A) 0 %; Eosinophils # (A) 0.1 k/uL (0-0.7); Eosinophils % (A) 1 %; Lymphocytes # (A) 1.1 k/uL (1.0-4.8); Lymphocytes % (A) 15 %; MCH 32.9 pg (25.0-35.0); MCHC 33.3 g/dL (31.0-37.0); MCV 98.8 fL (80.0-100.0); Mean Platelet Volume 8.3; Monocytes # (A) 0.5 k/uL (0-1.0); Monocytes % (A) 7 %; Neutrophils # (A) 5.5 k/uL (1.3-7.7); Neutrophils % (A) 76 %; Platelet Count 234 k/uL (150-450); RBC 3.64 m/uL (3.80-5.40); RDW 12.2 % (11.5-15.5); WBC 7.3 k/uL (3.8-10.6)
--- NOTE | 2023-05-07 12:49 | XR ---
EXAMINATION TYPE: XR chest 1V portable DATE OF EXAM: 05/07/2023 COMPARISON: NONE HISTORY: Altered mental status. TECHNIQUE: Single frontal view of the chest is obtained. FINDINGS: There is no focal air space opacity, pleural effusion, or pneumothorax seen. The cardiac silhouette size is within normal limits. The osseous structures are intact. IMPRESSION: No acute process.
[2023-05-07 12:59] LABS: ALT 7 U/L (4-34); AST 15 U/L (14-36); African American GFR (CKD) 47 (>60 ml/min/1.73 sqM); Albumin 3.5 g/dL (3.5-5.0); Alkaline Phosphatase 65 U/L (38-126); Anion Gap 8 mmol/L; Blood Urea Nitrogen 26 mg/dL (7-17); Calcium 8.8 mg/dL (8.4-10.2); Carbon Dioxide 22 mmol/L (22-30); Chloride 107 mmol/L (98-107); Glucose 96 mg/dL (74-99); Magnesium 2.2 mg/dL (1.6-2.3); Non-African American GFR(CKD) 41 (>60 ml/min/1.73 sqM); Potassium 4.5 mmol/L (3.5-5.1); Sodium 137 mmol/L (137-145); Total Bilirubin 0.7 mg/dL (0.2-1.3)
--- NOTE | 2023-05-07 13:10 | CT ---
EXAMINATION TYPE: CT brain wo con DATE OF EXAM: 05/07/2023 COMPARISON: 10/07/2021. HISTORY: Weakness. CT DLP: 1074.4 mGycm Automated exposure control for dose reduction was used. FINDINGS: There is no acute intracranial hemorrhage, mass, mass effect, midline shift, extra axial fluid collec tion or hydrocephalus. Age-appropriate atrophy is noted. There is mild diffuse hypoattenuation in a periventricular, subcortical and deep white matter which i s likely related to chronic ischemic small vessel change. There is no acute major vessel infarct. The visualized paranasal sinuses and mastoid air cells are clear. IMPRESSION: CHRONIC CHANGES WITH NO ACUTE INTRACRANIAL PROCESS AND NO SIGNIFICANT CHANGE.
[2023-05-07] MEDS ORDERED: SODIUM CHLORIDE 0.9% 1,000 ML IV STA (13:40)
[2023-05-07 15:19] LABS: Appearance,Urine Cloudy (Clear); Bilirubin,Urine Negative (Negative); Blood,Urine Negative (Negative); Color,Urine Light Yellow; Glucose,Urine (UA) Negative (Negative); Ketones,Urine Trace (Negative); Leukocyte Esterase,Urine Large (Negative); Mucus,Urine Rare /hpf; Nitrite,Urine Negative (Negative); PH, Urine 5.5 (5.0-8.0); Protein,Urine Trace (Negative); RBC,Urine 4 /hpf (0-5); Specific Gravity,Urine 1.017 (1.001-1.035); Squamous Epithelial Cell,Urine 3 /hpf (0-4); Urobilinogen,Urine <2.0 mg/dL (<2.0); WBC,Urine 40 /hpf (0-5)
[2023-05-07] MEDS ORDERED: cefTRIAXone IN SWFI 1,000 MG/10 ML SYRINGE IVP STA (15:35)
[2023-05-07] MEDS ORDERED: NALOXONE 0.4 MG/ML 1 ML VIAL IV PRN (15:45)
[2023-05-07] MEDS: SODIUM CHLORIDE 0.9% 1,000 ML IV SCH (16:00)
--- NOTE | 2023-05-07 18:48 | P.HPIM ---
History of Present Illness H&P Date: 05/07/23 78 year old F with PMH of Parkinsons, depression presents to the ED for dizziness. Patient is a poor historian and communication is difficult. Majority of information is obtained from charting and documentation. She does report some mild suprapubic discomfort. Apparently, patient has been having progressively worsening Parkisons with dementia over the past several months. While leaving the neurologist office today, she had an episode where she became lightheaded and fell to the ground. No reports of LOC or head trauma. In the ED she underwent extensive evaluation. CBC RBC count 3.64. CMP BUN 26, Cr 1.26 UA + LE. Head CT no acute intracranial hemorrhage EKG sinus bradycardia with Q waves noted. CXR negative. EKG sinus rhythm. Pertinent positives and negatives as discussed in HPI, a complete review of systems was performed and all other systems are negative. General: non toxic, no distress, appears at stated age Derm: warm, dry Head: atraumatic, normocephalic, symmetric Eyes: EOMI, no lid lag, anicteric sclera Cardiovascular: Normal S1 S2. good distal perfusion in all 4 extremities Lungs: CTA BL, breathing comfortably, no accessory muscle use Abd: TTP suprapubic area without rebound. Ext: no gross muscle atrophy, no edema, no contractures Neuro: Unable to perform Psyc: Flat affect. Based on my assessment of this patient, this patient meets a high complexity level of care. Patient has an acute diagnosis of presyncopal episode with UTI that poses a threat to life or bodily function. Presyncopal episode: Obtain orthostats. Telemetry monitoring. Echo. PT and OT consult. Fall precautions. Hypotension: BP 89/49 on admission. Fluid responsive. Does not meet sepsis criteria. Continue NS at 75 cc/hr. UTI: Rocephin 1g IV QD. Follow UCx. CODE STATUS: FULL CODE DVT Prophylaxis: Lovenox SQ GI Prophylaxis: Pepcid Designated medical POA if patient is not able to make medical decisions for themselves: I have reviewed the following field technical support consultant notes: I have reviewed the results of the following tests: As above. I have ordered the following tests: As above. I have discussed the care of this patient with the following independent historian: I have independently interpreted the following test below: EKG as above. I have discussed the management of this patient with the following physician: Discussed with ED provider in detail. Past Medical History Past Medical History: Hypertension, Neurologic Disorder, Renal Disease Additional Past Medical History / Comment(s): parkinsons,has mobility balance issues-uses cane when needed, has only rt kidney History of Any Multi-Drug Resistant Organisms: None Reported Past Surgical History: Appendectomy, Tubal Ligation Additional Past Surgical History / Comment(s): surgery for "floating" rt kidney Past Anesthesia/Blood Transfusion Reactions: Postoperative Nausea & Vomiting (PONV) Past Psychological History: No Psychological Hx Reported Smoking Status: Never smoker Past Alcohol Use History: Daily Past Drug Use History: None Reported - Past Family History Daughter(s) Family Medical History: Diabetes Mellitus Medications and Allergies Home Medications Medication Instructions Recorded Confirmed Type Carbidopa-Levodopa 25-100 mg 2 tab PO TID@0600,1100,1500 01/19/19 05/07/23 History [Sinemet 25-100] Naproxen Sodium [Aleve] 220 mg PO DAILY PRN 01/19/19 05/07/23 History Escitalopram [Lexapro] 5 mg PO DAILY@1200 05/07/23 05/07/23 History Meloxicam [Mobic] 15 mg PO HS 05/07/23 05/07/23 History Allergies Allergy/AdvReac Type Severity Reaction Status Date / Time morphine Allergy Rash/Hives Verified 05/07/23 14:09 Physical Exam Vitals: Vital Signs Temp Pulse Resp BP Pulse Ox 05/07/23 14:25 80 18 162/76 100 05/07/23 12:01 98.1 F 59 L 18 89/49 99 Intake and Output 05/07/23 05/07/23 05/07/23 06:59 14:59 22:59 Other: Weight 68.039 kg Results CBC & Chem 7: 05/07/23 12:22 05/07/23 12:22 Labs: Abnormal Lab Results - Last 24 Hours (Table) 05/07/23 05/07/23 05/07/23 Range/Units 12:22 12:22 14:55 RBC 3.64 L (3.80-5.40) m/uL BUN 26 H (7-17) mg/dL Creatinine 1.26 H (0.52-1.04) mg/dL Total Protein 6.0 L (6.3-8.2) g/dL Urine Appearance Cloudy H (Clear) Urine Protein Trace H (Negative) Urine Ketones Trace H (Negative) Ur Leukocyte Esterase Large H (Negative) Urine WBC 40 H (0-5) /hpf Urine Mucus Rare H (None) /hpf
[2023-05-08] MEDS ORDERED: cloNIDine HCL 0.1 MG TAB PO STA (00:37)
[2023-05-08] MEDS: SODIUM CHLORIDE 0.9% 1,000 ML IV SCH (04:38)
[2023-05-08 05:27] LABS: African American GFR (CKD) 59 (>60 ml/min/1.73 sqM); Anion Gap 7 mmol/L; Blood Urea Nitrogen 23 mg/dL (7-17); Calcium 8.6 mg/dL (8.4-10.2); Carbon Dioxide 24 mmol/L (22-30); Chloride 109 mmol/L (98-107); Glucose 94 mg/dL (74-99); Non-African American GFR(CKD) 51 (>60 ml/min/1.73 sqM); Potassium 4.2 mmol/L (3.5-5.1); Sodium 140 mmol/L (137-145)
[2023-05-08] MEDS: CARBIDOPA-LEVODOPA 25-100 MG 1 EACH TAB PO SCH ×3 (05:51→15:15)
[2023-05-08] MEDS ORDERED: ENOXAPARIN 40 MG/0.4 ML SYRINGE SQ SCH (09:00)
[2023-05-08] MEDS ORDERED: ESCITALOPRAM 5 MG TAB PO SCH (12:00)
[2023-05-08 15:21] VITALS: BMI 25.0
[2023-05-08 15:44] VITALS: BP 154/82; PULSE 77; RESP 17; TEMP 98.3
--- NOTE | 2023-05-08 17:43 | P.DS ---
Providers Date of admission: 05/07/23 15:46 Expected date of discharge: 05/08/23 Attending physician: Beth Rebolledo MD Primary care physician: [facility] Course: 78 year old F with PMH of Parkinsons, depression presents to the ED for dizziness. Patient is a poor historian and communication is difficult. Majority of information is obtained from charting and documentation. She does report some mild suprapubic discomfort. Apparently, patient has been having progressively worsening Parkisons with dementia over the past several months. While leaving the neurologist office today, she had an episode where she became lightheaded and fell to the ground. No reports of LOC or head trauma. In the ED she underwent extensive evaluation. CBC RBC count 3.64. CMP BUN 26, Cr 1.26 UA + LE. Head CT no acute intracranial hemorrhage EKG sinus bradycardia with Q waves noted. CXR negative. EKG sinus rhythm. Patient was started on Rocephin and IV hydration. Echocardiogram was done and pending at the time of this note. 05/08 Patient was seen and examined. Difficulty communicating with the patient. She was noted to be hypertensive at night with SBP > 200 requiring Clonidine PO. Orthostats this morning was positive. This is likely autonomic dysfunction. She has supine hypertension with orthostatic hypotension. Family wants the patient to go to SNF however this will not be possible due to insurance reasons. The case was discussed extensively with multiple family members. Started on Nifedipine 30 mg PO QHS. Continue Keflex 500 mg PO BID x 5 days for treatment of UTI. Diet: High salt Drink plenty of fluid. Avoiding laying down during the day Elevate the head of the bed at night Compression stockings thigh high during the day Slow positional changes Family verbalized understanding of the plan. Pertient studies include CXR, Brain CT, EKG. General: non toxic, no distress, appears at stated age Derm: warm, dry Head: atraumatic, normocephalic, symmetric Eyes: EOMI, no lid lag, anicteric sclera Cardiovascular: Normal S1 S2. good distal perfusion in all 4 extremities Lungs: CTA BL, breathing comfortably, no accessory muscle use Abd: TTP suprapubic area without rebound. Ext: no gross muscle atrophy, no edema, no contractures Neuro: Unable to perform Psyc: Flat affect. Discharge Diagnosis Presyncopal episode Supine hypertension with orthostatic hypotension UTI This complex discharge took 35 minutes to complete. Patient Condition at Discharge: Stable Plan - Discharge Summary Discharge Rx Participant: No New Discharge Prescriptions: New NIFEdipine [Adalat CC] 30 mg PO HS #30 tab Cephalexin [Keflex] 500 mg PO Q12HR 5 Days #10 cap Continue Naproxen Sodium [Aleve] 220 mg PO DAILY PRN PRN Reason: Pain Carbidopa-Levodopa 25-100 mg [Sinemet 25-100 mg] 2 tab PO TID@0600,1100,1500 Meloxicam [Mobic] 15 mg PO HS Escitalopram [Lexapro] 5 mg PO DAILY@1200 Discharge Medication List Carbidopa-Levodopa 25-100 mg [Sinemet 25-100 mg] 2 tab PO TID@0600,1100,1500 01/19/19 [History] Naproxen Sodium [Aleve] 220 mg PO DAILY PRN 01/19/19 [History] Escitalopram [Lexapro] 5 mg PO DAILY@1200 05/07/23 [History] Meloxicam [Mobic] 15 mg PO HS 05/07/23 [History] Cephalexin [Keflex] 500 mg PO Q12HR 5 Days #10 cap 05/08/23 [Rx] NIFEdipine [Adalat CC] 30 mg PO HS #30 tab 05/08/23 [Rx] Follow up Appointment(s)/Referral(s): [facility], [NON-STAFF] - Herman Zamora DO [Primary Care Provider] - 1-2 days Activity/Diet/Wound Care/Special Instructions: Diet: High salt Drink plenty of fluid. Avoiding laying down during the day Elevate the head of the bed at night Compression stockings thigh high during the day Slow positional changes Discharge Disposition: HOME SELF-CARE
--- NOTE | 2023-05-09 09:11 | CA ---
Transthoracic Echo Report Name: Deborah West Age: 78 Gender: F : 1945 Exam Date: 05/08/2023 15:02 Exam Location: [place] [facility] Ht (in): 65 Wt (lb): 150 Ordering Physician: Beth Rebolledo MD Attending/Referring Phys: Photographic Process Screen Maker Cornelius Regalado Procedure CPT: Indications: presyncope Cardiac Hx: Technical Quality: Technically difficult study Contrast 1: Total Dose (mL): Contrast 2: Total Dose (mL): MEASUREMENTS (Male / Female) Normal Values 2D ECHO LV Diastolic Diameter PLAX 3.6 cm 4.2 - 5.9 / 3.9 - 5.3 cm LV Systolic Diameter PLAX 2.3 cm IVS Diastolic Thickness 1.0 cm 0.6 - 1.0 / 0.6 - 0.9 cm LVPW Diastolic Thickness 0.9 cm 0.6 - 1.0 / 0.6 - 0.9 cm LV Relative Wall Thickness 0.5 RV Internal Dim ED PLAX 2.5 cm LVOT Diameter 2.0 cm Aortic Root Diameter 3.2 cm LA Systolic Diameter LX 1.9 cm 3.0 - 4.0 / 2.7 - 3.8 cm LV Diastolic Volume MOD BP 33.6 cm??? 67 - 155 / 56 - 104 cm??? LV Systolic Volume MOD BP 15.5 cm??? 22 - 58 / 19 - 49 cm??? LV Ejection Fraction MOD BP 53.9 % >= 55 % LV Cardiac Index MOD BP 681.6 cm???/min???m??? LV Diastolic Volume MOD 4C 39.4 cm??? LV Systolic Volume MOD 4C 18.3 cm??? LV Ejection Fraction MOD 4C 53.6 % LV Cardiac Index MOD 4C 795.8 cm???/min???m??? LV Diastolic Length 4C 6.1 cm LV Systolic Length 4C 5.6 cm LV Diastolic Volume MOD 2C 26.9 cm??? LV Systolic Volume MOD 2C 12.3 cm??? LV Ejection Fraction MOD 2C 54.3 % LV Cardiac Index MOD 2C 550.8 cm???/min???m??? LV Diastolic Length 2C 6.5 cm LV Systolic Length 2C 6.1 cm Ascending Aorta Diameter 3.3 cm DOPPLER AV Peak Velocity 96.1 cm/s AV Peak Gradient 3.7 mmHg AI Peak Velocity 329.0 cm/s AI Peak Gradient 43.3 mmHg AI Pressure Half Time 962.3 ms LVOT Peak Velocity 72.6 cm/s LVOT Peak Gradient 2.1 mmHg LVOT Velocity Time Integral 17.8 cm LVOT Stroke Volume 54.2 cm??? LVOT Stroke Volume Index 31.0 ml/m??? LVOT Cardiac Index 2042.9 cm???/min???m??? AV Area Cont Eq pk 2.3 cm??? MV Peak Velocity 107.4 cm/s MV Peak Gradient 4.6 mmHg MV Mean Velocity 47.1 cm/s MV Mean Gradient 1.2 mmHg MV Velocity Time Integral 29.7 cm Mitral E Point Velocity 61.2 cm/s Mitral A Point Velocity 81.6 cm/s Mitral E to A Ratio 0.8 MV Deceleration Time 230.9 ms MV E' Velocity 6.3 cm/s Mitral E to MV E' Ratio 9.7 TR Peak Velocity 244.6 cm/s TR Peak Gradient 23.9 mmHg Right Ventricular Systolic Press 28.9 mmHg PV Peak Velocity 77.5 cm/s PV Peak Gradient 2.4 mmHg FINDINGS Left Ventricle Normal LV size and wall thickness. Left ventricular ejection fraction is estimated at 50-55 %. Right Ventricle Normal right ventricular size. RVSP=29mmHg. Right Atrium Normal right atrial size. Left Atrium Normal left atrial size. Mitral Valve Structurally normal mitral valve. No mitral regurgitation. No mitral stenosis. Aortic Valve Trileaflet aortic valve. Mild AI. Tricuspid Valve Structurally normal tricuspid valve. Mild TR. Pulmonic Valve Pulmonic valve not well visualized. Mild PI. Pericardium Normal pericardium. Aorta Normal size aortic root and proximal ascending aorta. CONCLUSIONS Normal LV function Previewed by: Dr. Iraj Siddiqui MD (Electronically Signed) Final Date: 09 May 2023 09:10
== END 2023-05-08 15:41 | disposition home or self-care (01) ==
LOC: EC 11:59 → 6NMEDSUR 15:46
PROVIDERS: ADMIT Family Medicine; ATTEND Family Medicine
DX: I95.1 Orthostatic hypotension (principal); N39.0 Urinary tract infection, site not specified; I10 Essential (primary) hypertension; G20.A1 Parkinson's disease without dyskinesia, without mention of fluctuations; F02.80 Dementia in other diseases classified elsewhere, unspecified severity, without behavioral disturbance, psychotic disturbance, mood disturbance, and anxiety; Z79.899 Other long term (current) drug therapy; Z88.5 Allergy status to narcotic agent
CPT/HCPCS: 96361 ×3; 96365; 96372; 99285; 36415; 93005; 93306; 97162; 80053; 80048; 82140; 83605; 83735; 85025; 81001; 87086; 71045; 70450; G0378 ×2; J1650; J0696 ×2

== ENCOUNTER 2023-05-19 08:05 | Inpatient (IN) | payer MEDICARE, OTHER ==
[2023-05-19 08:27] LABS: Glucose,Whole Blood 111 mg/dL (70-110)
[2023-05-19] MEDS ORDERED: SODIUM CHLORIDE 0.9% 1,000 ML IV STA (08:31)
--- NOTE | 2023-05-19 08:37 | ED ---
General Adult HPI - General Chief complaint: Altered Mental Status Stated complaint: Altered mental status Time Seen by Provider: 05/19/23 08:10 Source: patient, EMS, RN notes reviewed, old records reviewed Mode of arrival: EMS Limitations: altered mental status - History of Present Illness Initial comments: This is a 78-year-old female who presents emergency Department with a past medical history significant for Parkinson's disease. According to the patient was in the hospital 2 weeks with urinary tract infection and recently went back to her primary medical care doctor and he stated she still had a urinary tract infection. Patient was trying to get up out of bed but was too weak to stand slowly went to the ground there was no injury or head or neck. According to the is just been dehydrated lately because she won't eat or drink. states he no longer can take care of her because she is too heavy for him and she is given a fall and herself. Patient has no complaints currently other than feeling fatigued and tired and weak. Patient's had no fever chills per patient has no vomiting diarrhea. Patient didn't fall this morning. - Related Data Home Medications Medication Instructions Recorded Confirmed Carbidopa-Levodopa 25-100 mg 2 tab PO TID@0600,1100,1500 01/19/19 05/19/23 [Sinemet 25-100 mg] Escitalopram [Lexapro] 5 mg PO DAILY@1200 05/07/23 05/19/23 Meloxicam [Mobic] 15 mg PO HS 05/07/23 05/19/23 Losartan Potassium 50 mg PO HS 05/19/23 05/19/23 Nitrofurantoin Monohyd/M-Cryst 100 mg PO BID 05/19/23 05/19/23 [Macrobid] Allergies Allergy/AdvReac Type Severity Reaction Status Date / Time morphine Allergy Rash/Hives Verified 05/19/23 08:53 Review of Systems ROS Statement: Those systems with pertinent positive or pertinent negative responses have been documented in the HPI. ROS Other: All systems not noted in ROS Statement are negative. Past Medical History Past Medical History: Hypertension, Neurologic Disorder, Renal Disease Additional Past Medical History / Comment(s): parkinsons,has mobility balance issues-uses cane when needed, has only rt kidney History of Any Multi-Drug Resistant Organisms: None Reported Past Surgical History: Appendectomy, Tubal Ligation Additional Past Surgical History / Comment(s): surgery for "floating" rt kidney Past Anesthesia/Blood Transfusion Reactions: Postoperative Nausea & Vomiting (PONV) Past Psychological History: No Psychological Hx Reported Smoking Status: Never smoker Past Alcohol Use History: Daily Past Drug Use History: None Reported - Past Family History Daughter(s) Family Medical History: Diabetes Mellitus General Exam - General Exam Comments Initial Comments: GENERAL: Patient is well-developed and well-nourished. Patient is nontoxic and well- hydrated and is in no acute distress. ENT: Neck is soft and supple. No significant lymphadenopathy is noted. Oropharynx is clear. Moist mucous membranes. Neck has full range of motion without eliciting any pain. EYES: The sclera were anicteric and conjunctiva were pink and moist. Extraocular movements were intact and pupils were equal round and reactive to light. Eyelids were unremarkable. PULMONARY: Unlabored respirations. Good breath sounds bilaterally. No audible rales rhonchi or wheezing was noted. CARDIOVASCULAR: There is a regular rate and rhythm without any murmurs gallops or rubs. ABDOMEN: Soft and nontender with normal bowel sounds. SKIN: Skin is clear with no lesions or rashes and otherwise unremarkable. NEUROLOGIC: Patient is alert and oriented 2. Cranial nerves II through XII are grossly intact. Motor and sensory are also intact. Normal speech, volume and content. Symmetrical smile. MUSCULOSKELETAL: Normal extremities with adequate strength and full range of motion. No lower extremity swelling or edema. No calf tenderness. LYMPHATICS: No significant lymphadenopathy is noted PSYCHIATRIC: Normal psychiatric evaluation. Limitations: altered mental status Course Vital Signs 05/19/23 05/19/23 05/19/23 08:07 09:11 09:13 Temperature 98.1 F Pulse Rate 70 Pulse Rate [ 89 83 Pulse Oximetery ] Respiratory 17 16 16 Rate Blood Pressure 115/64 Blood Pressure 97/63 [Right Arm Sitting] Blood Pressure [Right Arm Standing] Blood Pressure 122/70 [Right Arm Supine] O2 Sat by Pulse 100 99 99 Oximetry 05/19/23 05/19/23 05/19/23 09:15 10:30 11:04 Temperature 98.1 F Pulse Rate 79 75 Pulse Rate [ Pulse Oximetery ] Respiratory 17 16 Rate Blood Pressure 135/81 154/84 Blood Pressure [Right Arm Sitting] Blood Pressure 100/76 [Right Arm Standing] Blood Pressure [Right Arm Supine] O2 Sat by Pulse 99 95 Oximetry Medical Decision Making - Medical Decision Making EKG is interpreted by myself. EKG shows a sinus rhythm at 71 bpm CA interval 158 QRS is 74 QT interval 390 QTC is 420. Patient's EKG also shows some PACs. Was pt. sent in by a medical professional or institution (, PA, BOOK CLEANER, urgent care, hospital, or correction...) When possible be specific @ -No Did you speak to anyone other than the patient for history (EMS, parent, family, police, friend...)? What history was obtained from this source @ - gave almost all the history Did you review nursing and triage notes (agree or disagree)? Why? @ -I reviewed and agree with nursing and triage notes Were old charts reviewed (outside hosp., previous admission, EMS record, old EKG, old radiological studies, urgent care reports/EKG's, correction records)? Report findings @ -I reviewed prior charts prior lab work on this patient Differential Diagnosis (chest pain, altered mental status, abdominal pain women, abdominal pain men, vaginal bleeding, weakness, fever, dyspnea, syncope, headache, dizziness, GI bleed, back pain, seizure, CVA, palpatations, mental health, musculoskeletal)? @ -Differential Weakness: Hypoglycemia, shock, sepsis, hyponatremia, anemia, infection, MD, ETOH, adverse medicine reaction, overdose, stroke, this is not meant to be an all-inclusive list. EKG interpreted by me (3pts min.). @ -As above X-rays interpreted by me (1pt min.). @ -Chest x-ray showed no acute KUB showed no acute abnormality CT interpreted by me (1pt min.). @ -None done U/S interpreted by me (1pt. min.). @ -None done What testing was considered but not performed or refused? (CT, X-rays, U/S, labs)? Why? @ -None What meds were considered but not given or refused? Why? @ -None Did you discuss the management of the patient with other professionals (professionals i.e. , VICKY, BOOK CLEANER, lab, RT, psych nurse, director social welfare, hand shaker, teacher, chief informatics officer, case management associate)? Give summary @ -L[place] with Dr. Westfall she agreed to admit the patient Was smoking cessation discussed for >3mins.? @ -No Was critical care preformed (if so, how long)? @ -No Were there social determinants of health that impacted care today? How? (Homelessness, low income, unemployed, alcoholism, drug addiction, transportatio n, low edu. Level, literacy, decrease access to med. care, usp, rehab)? @ -No Was there de-escalation of care discussed even if they declined (Discuss DNR or withdrawal of care, Hospice)? DNR status @ -No What co-morbidities impacted this encounter? (DM, HTN, Smoking, COPD, CAD, Cancer, CVA, ARF, Chemo, Hep., AIDS, mental health diagnosis, sleep apnea, morbid obesity)? @ -None Was patient admitted / discharged? Hospital course, mention meds given and route, prescriptions, significant lab abnormalities, going to OR and other pertinent info. @ -Patient received IV fluid bolus in the emergency department. Patient's guaiac came back positive repeat CBCs will be ordered. Patient will be admitted to Dr. Westfall. Patient will be given IV fluids as an inpatient. Undiagnosed new problem with uncertain prognosis? @ -No Drug Therapy requiring intensive monitoring for toxicity (Heparin, Nitro, Insulin, Cardizem)? @ -No Were any procedures done? @ -No Diagnosis/symptom? @ -Dehydration Acute, or Chronic, or Acute on Chronic? @ -Acute Uncomplicated (without systemic symptoms) or Complicated (systemic symptoms)? @ -Uncomplicated Side effects of treatment? @ -No Exacerbation, Progression, or Severe Exacerbation? @ -No Poses a threat to life or bodily function? How? (Chest pain, USA, MD, pneumonia, PE, COPD, DKA, ARF, appy, cholecystitis, CVA, Diverticulitis, Homicidal, Suicidal, threat to staff... and all critical care pts) @ -No Diagnosis/symptom? @ -Weakness Acute, or Chronic, or Acute on Chronic? @ -Acute on chronic Uncomplicated (without systemic symptoms) or Complicated (systemic symptoms)? @ -Complicated Side effects of treatment? @ -none Exacerbation, Progression, or Severe Exacerbation] @ -no Poses a threat to life or bodily function? @ -no Diagnosis/symptom? @ -Renal insufficiency Acute, or Chronic, or Acute on Chronic? @ -Acute Uncomplicated (without systemic symptoms) or Complicated (systemic symptoms)? @ -Complicated Side effects of treatment? @ -none Exacerbation, Progression, or Severe Exacerbation] @ -no Poses a threat to life or bodily function? @ -no - Lab Data Result diagrams: 05/19/23 08:35 05/19/23 08:35 Lab Results 05/19/23 05/19/23 05/19/23 Range/Units 08:21 08:35 08:35 WBC 12.2 H (3.8-10.6) k/uL RBC 3.44 L (3.80-5.40) m/uL Hgb 11.2 L (11.4-16.0) gm/dL Hct 34.2 (34.0-46.0) % MCV 99.4 (80.0-100.0) fL MCH 32.6 (25.0-35.0) pg MCHC 32.7 (31.0-37.0) g/dL RDW 12.5 (11.5-15.5) % Plt Count 322 (150-450) k/uL MPV 8.7 Neutrophils % 83 % Lymphocytes % 10 % Monocytes % 6 % Eosinophils % 1 % Basophils % 0 % Neutrophils # 10.1 H (1.3-7.7) k/uL Lymphocytes # 1.2 (1.0-4.8) k/uL Monocytes # 0.8 (0-1.0) k/uL Eosinophils # 0.1 (0-0.7) k/uL Basophils # 0.0 (0-0.2) k/uL Sodium (137-145) mmol/L Potassium (3.5-5.1) mmol/L Chloride (98-107) mmol/L Carbon Dioxide (22-30) mmol/L Anion Gap mmol/L BUN (7-17) mg/dL Creatinine (0.52-1.04) mg/dL Est GFR (CKD-EPI)AfAm (>60 ml/min/1.73 sqM) Est GFR (CKD-EPI)NonAf (>60 ml/min/1.73 sqM) Glucose (74-99) mg/dL POC Glucose (mg/dL) 111 H (70-110) mg/dL POC Glu Bookmaker'S Clerk ID DeandraoffGhislaine Lactic Ac Sepsis Rflx Plasma Lactic Acid Jovani (0.7-2.0) mmol/L Calcium (8.4-10.2) mg/dL Magnesium (1.6-2.3) mg/dL Total Bilirubin (0.2-1.3) mg/dL AST (14-36) U/L ALT (4-34) U/L Alkaline Phosphatase (38-126) U/L Total Protein (6.3-8.2) g/dL Albumin (3.5-5.0) g/dL TSH (0.465-4.680) mIU/L Urine Color Yellow Urine Appearance Clear (Clear) Urine pH 6.0 (5.0-8.0) Ur Specific [place] 1.015 (1.001-1.035) Urine Protein Trace H (Negative) Urine Glucose (UA) Negative (Negative) Urine Ketones Trace H (Negative) Urine Blood Negative (Negative) Urine Nitrite Negative (Negative) Urine Bilirubin Negative (Negative) Urine Urobilinogen 0.2 (<2.0) mg/dL Ur Leukocyte Esterase Negative (Negative) Stool Occult Blood (Negative) 05/19/23 05/19/23 05/19/23 Range/Units 08:35 08:35 09:21 WBC (3.8-10.6) k/uL RBC (3.80-5.40) m/uL Hgb (11.4-16.0) gm/dL Hct (34.0-46.0) % MCV (80.0-100.0) fL MCH (25.0-35.0) pg MCHC (31.0-37.0) g/dL RDW (11.5-15.5) % Plt Count (150-450) k/uL MPV Neutrophils % % Lymphocytes % % Monocytes % % Eosinophils % % Basophils % % Neutrophils # (1.3-7.7) k/uL Lymphocytes # (1.0-4.8) k/uL Monocytes # (0-1.0) k/uL Eosinophils # (0-0.7) k/uL Basophils # (0-0.2) k/uL Sodium 140 (137-145) mmol/L Potassium 4.7 (3.5-5.1) mmol/L Chloride 103 (98-107) mmol/L Carbon Dioxide 23 (22-30) mmol/L Anion Gap 14 mmol/L BUN 59 H (7-17) mg/dL Creatinine 1.58 H (0.52-1.04) mg/dL Est GFR (CKD-EPI)AfAm 36 (>60 ml/min/1.73 sqM) Est GFR (CKD-EPI)NonAf 31 (>60 ml/min/1.73 sqM) Glucose 105 H (74-99) mg/dL POC Glucose (mg/dL) (70-110) mg/dL POC Glu Bookmaker'S Clerk ID Lactic Ac Sepsis Rflx Y Plasma Lactic Acid Jovani 3.1 H* (0.7-2.0) mmol/L Calcium 8.5 (8.4-10.2) mg/dL Magnesium 2.1 (1.6-2.3) mg/dL Total Bilirubin 0.8 (0.2-1.3) mg/dL AST 15 (14-36) U/L ALT 9 (4-34) U/L Alkaline Phosphatase 58 (38-126) U/L Total Protein 6.0 L (6.3-8.2) g/dL Albumin 3.5 (3.5-5.0) g/dL TSH 1.080 (0.465-4.680) mIU/L Urine Color Urine Appearance (Clear) Urine pH (5.0-8.0) Ur Specific [place] (1.001-1.035) Urine Protein (Negative) Urine Glucose (UA) (Negative) Urine Ketones (Negative) Urine Blood (Negative) Urine Nitrite (Negative) Urine Bilirubin (Negative) Urine Urobilinogen (<2.0) mg/dL Ur Leukocyte Esterase (Negative) Stool Occult Blood (Negative) 05/19/23 Range/Units 09:41 WBC (3.8-10.6) k/uL RBC (3.80-5.40) m/uL Hgb (11.4-16.0) gm/dL Hct (34.0-46.0) % MCV (80.0-100.0) fL MCH (25.0-35.0) pg MCHC (31.0-37.0) g/dL RDW (11.5-15.5) % Plt Count (150-450) k/uL MPV Neutrophils % % Lymphocytes % % Monocytes % % Eosinophils % % Basophils % % Neutrophils # (1.3-7.7) k/uL Lymphocytes # (1.0-4.8) k/uL Monocytes # (0-1.0) k/uL Eosinophils # (0-0.7) k/uL Basophils # (0-0.2) k/uL Sodium (137-145) mmol/L Potassium (3.5-5.1) mmol/L Chloride (98-107) mmol/L Carbon Dioxide (22-30) mmol/L Anion Gap mmol/L BUN (7-17) mg/dL Creatinine (0.52-1.04) mg/dL Est GFR (CKD-EPI)AfAm (>60 ml/min/1.73 sqM) Est GFR (CKD-EPI)NonAf (>60 ml/min/1.73 sqM) Glucose (74-99) mg/dL POC Glucose (mg/dL) (70-110) mg/dL POC Glu Bookmaker'S Clerk ID Lactic Ac Sepsis Rflx Plasma Lactic Acid Jovani (0.7-2.0) mmol/L Calcium (8.4-10.2) mg/dL Magnesium (1.6-2.3) mg/dL Total Bilirubin (0.2-1.3) mg/dL AST (14-36) U/L ALT (4-34) U/L Alkaline Phosphatase (38-126) U/L Total Protein (6.3-8.2) g/dL Albumin (3.5-5.0) g/dL TSH (0.465-4.680) mIU/L Urine Color Urine Appearance (Clear) Urine pH (5.0-8.0) Ur Specific [place] (1.001-1.035) Urine Protein (Negative) Urine Glucose (UA) (Negative) Urine Ketones (Negative) Urine Blood (Negative) Urine Nitrite (Negative) Urine Bilirubin (Negative) Urine Urobilinogen (<2.0) mg/dL Ur Leukocyte Esterase (Negative) Stool Occult Blood Positive H (Negative) Disposition Clinical Impression: Dehydration, Renal insufficiency, Generalized weakness, GI bleed Disposition: ADMITTED IP TO THIS HOSP Referrals: Herman Zamora DO [Primary Care Provider] - 1-2 days Time of Disposition: 11:24
[2023-05-19 08:51] LABS: Basophils % (A) 0 %; Eosinophils # (A) 0.1 k/uL (0-0.7); Eosinophils % (A) 1 %; HCT 34.2 % (34.0-46.0); HGB 11.2 gm/dL (11.4-16.0); Lymphocytes # (A) 1.2 k/uL (1.0-4.8); Lymphocytes % (A) 10 %; MCH 32.6 pg (25.0-35.0); MCHC 32.7 g/dL (31.0-37.0); MCV 99.4 fL (80.0-100.0); Mean Platelet Volume 8.7; Monocytes # (A) 0.8 k/uL (0-1.0); Monocytes % (A) 6 %; Neutrophils # (A) 10.1 k/uL (1.3-7.7); Neutrophils % (A) 83 %; Platelet Count 322 k/uL (150-450); RBC 3.44 m/uL (3.80-5.40); RDW 12.5 % (11.5-15.5); WBC 12.2 k/uL (3.8-10.6)
--- NOTE | 2023-05-19 09:14 | XR ---
EXAMINATION TYPE: XR chest 2V DATE OF EXAM: 05/19/2023 COMPARISON: 05/07/2023 INDICATION: Weakness TECHNIQUE: Frontal and lateral views of the chest are obtained. FINDINGS: The heart size is normal. The pulmonary vasculature is normal. The lungs are clear. IMPRESSION: 1. No acute pulmonary process.
[2023-05-19 09:20] LABS: ALT 9 U/L (4-34); AST 15 U/L (14-36); African American GFR (CKD) 36 (>60 ml/min/1.73 sqM); Albumin 3.5 g/dL (3.5-5.0); Alkaline Phosphatase 58 U/L (38-126); Anion Gap 14 mmol/L; Blood Urea Nitrogen 59 mg/dL (7-17); Calcium 8.5 mg/dL (8.4-10.2); Carbon Dioxide 23 mmol/L (22-30); Chloride 103 mmol/L (98-107); Glucose 105 mg/dL (74-99); Magnesium 2.1 mg/dL (1.6-2.3); Non-African American GFR(CKD) 31 (>60 ml/min/1.73 sqM); Potassium 4.7 mmol/L (3.5-5.1); Sodium 140 mmol/L (137-145); Total Bilirubin 0.8 mg/dL (0.2-1.3)
--- NOTE | 2023-05-19 09:34 | XR ---
EXAMINATION TYPE: XR KUB DATE OF EXAM: 05/19/2023 COMPARISON: 06/30/2020 INDICATION: Constipation TECHNIQUE: Single view abdomen supine view FINDINGS: There is a nonspecific bowel gas pattern with air within small bowel loops as well as the colon. No s ignificant fecal retention is evident. Psoas margins are normal. No organomegaly is present. Some degenerative changes at the right hip. IMPRESSION: 1. Nonspecific bowel gas pattern. 2. No significant fecal retention
[2023-05-19 10:31] LABS: Appearance,Urine Clear (Clear); Color,Urine Yellow; Specific Gravity,Urine 1.015 (1.001-1.035)
[2023-05-19 10:32] LABS: Bilirubin,Urine Negative (Negative); Blood,Urine Negative (Negative); Glucose,Urine (UA) Negative (Negative); Ketones,Urine Trace (Negative); Leukocyte Esterase,Urine Negative (Negative); Nitrite,Urine Negative (Negative); Protein,Urine Trace (Negative); Urobilinogen,Urine 0.2 mg/dL (<2.0)
[2023-05-19] MEDS ORDERED: SODIUM CHLORIDE 0.9% 1,000 ML IV ONE (11:24)
[2023-05-19 15:17] LABS: Basophils % (A) 0 %; Eosinophils % (A) 0 %; HCT 29.4 % (34.0-46.0); HGB 9.9 gm/dL (11.4-16.0); Lymphocytes # (A) 1.1 k/uL (1.0-4.8); Lymphocytes % (A) 13 %; MCH 33.1 pg (25.0-35.0); MCHC 33.6 g/dL (31.0-37.0); MCV 98.7 fL (80.0-100.0); Mean Platelet Volume 8.9; Monocytes # (A) 0.6 k/uL (0-1.0); Monocytes % (A) 7 %; Neutrophils # (A) 7.1 k/uL (1.3-7.7); Neutrophils % (A) 79 %; Platelet Count 251 k/uL (150-450); RBC 2.98 m/uL (3.80-5.40); RDW 12.7 % (11.5-15.5); WBC 9.1 k/uL (3.8-10.6)
[2023-05-19] MEDS ORDERED: ACETAMINOPHEN TAB 325 MG TAB PO PRN (16:13)
[2023-05-19] MEDS ORDERED: NALOXONE 0.4 MG/ML 1 ML VIAL IV PRN (16:13)
[2023-05-19] MEDS ORDERED: ONDANSETRON 4 MG/2 ML VIAL IVP PRN (16:13)
--- NOTE | 2023-05-19 16:17 | P.HPIM ---
History of Present Illness H&P Date: 05/19/23 78 year old F with PMH of Parkinsons, depression presents to the ED for dizziness. Patient is a poor historian and communication is difficult. Majority of information is obtained from the . Previously admitted from 05/07-05/08. Diagnosed with supine hypertension with orthostatic hypotension. Started on Nifedipine 30 mg PO QHS. Discharged on Keflex 500 mg PO BID x 5 days for treatment of UTI. PCP switched the Nifedipine to Losartan at a lowered dose. This morning, patient had a presyncopal episode while getting out of bed this morning. denies LOC or syncopal episode. Working on getting placement. In the ED she underwent extensive evaluation. CBC WBC 12.2, Hg 11.2 CMP BUN 59, Cr 1.58, glu 105 Lactic acid 3.1. Stool occult blood + UA negative for LE or nitrite. CXR and KUB no acute pathology. EKG sinus rhythm with PVCs. Pertinent positives and negatives as discussed in HPI, a complete review of systems was performed and all other systems are negative. General: non toxic, no distress, appears at stated age Derm: warm, dry Head: atraumatic, normocephalic, symmetric Eyes: EOMI, no lid lag, anicteric sclera Cardiovascular: Normal S1 S2. good distal perfusion in all 4 extremities Lungs: CTA BL, breathing comfortably, no accessory muscle use Abd: TTP suprapubic area without rebound. Ext: no gross muscle atrophy, no edema, no contractures Neuro: Unable to perform Psyc: Flat affect. Based on my assessment of this patient, this patient meets a high complexity level of care. Patient has an acute diagnosis of presyncopal episode that poses a threat to life or bodily function. DG: Dehydration. IV hydration as below. Lactic acidosis: Dehydration. IV hydration as below. Presyncopal episode: Obtain orthostats. Telemetry monitoring. PT and OT consult. Fall precautions. Supine hypertension: Continue Losartan 50 mg PO QHS. Normocytic anemia: Stool occult blood +. Stable. CODE STATUS: FULL CODE DVT Prophylaxis: Lovenox SQ GI Prophylaxis: Designated medical POA if patient is not able to make medical decisions for themselves: I have reviewed the following salesforce consultant notes: I have reviewed the results of the following tests: As above. I have ordered the following tests: As above. I have discussed the care of this patient with the following independent historian: I have independently interpreted the following test below: EKG as above. I have discussed the management of this patient with the following physician: Past Medical History Past Medical History: Hypertension, Neurologic Disorder, Renal Disease Additional Past Medical History / Comment(s): parkinsons,has mobility balance issues-uses cane when needed, has only rt kidney History of Any Multi-Drug Resistant Organisms: None Reported Past Surgical History: Appendectomy, Tubal Ligation Additional Past Surgical History / Comment(s): surgery for "floating" rt kidney Past Anesthesia/Blood Transfusion Reactions: Postoperative Nausea & Vomiting (PONV) Past Psychological History: No Psychological Hx Reported Smoking Status: Never smoker Past Alcohol Use History: Daily Past Drug Use History: None Reported - Past Family History Daughter(s) Family Medical History: Diabetes Mellitus Medications and Allergies Home Medications Medication Instructions Recorded Confirmed Type Carbidopa-Levodopa 25-100 mg 2 tab PO TID@0600,1100,1500 01/19/19 05/19/23 History [Sinemet 25-100 mg] Escitalopram [Lexapro] 5 mg PO DAILY@1200 05/07/23 05/19/23 History Meloxicam [Mobic] 15 mg PO HS 05/07/23 05/19/23 History Losartan Potassium 50 mg PO HS 05/19/23 05/19/23 History Nitrofurantoin Monohyd/M-Cryst 100 mg PO BID 05/19/23 05/19/23 History [Macrobid] Allergies Allergy/AdvReac Type Severity Reaction Status Date / Time morphine Allergy Rash/Hives Verified 05/19/23 08:53 Physical Exam Vitals: Vital Signs Temp Pulse Pulse Resp BP BP BP 05/19/23 15:59 77 18 181/87 05/19/23 12:04 78 18 103/59 05/19/23 11:04 98.1 F 75 16 154/84 05/19/23 10:30 79 17 135/81 05/19/23 09:15 100/76 05/19/23 09:13 83 16 97/63 05/19/23 09:11 89 16 05/19/23 08:07 98.1 F 70 17 115/64 BP Pulse Ox 05/19/23 15:59 99 05/19/23 12:04 98 05/19/23 11:04 95 05/19/23 10:30 99 05/19/23 09:15 05/19/23 09:13 99 05/19/23 09:11 122/70 99 05/19/23 08:07 100 Intake and Output 05/19/23 05/19/23 05/19/23 06:59 14:59 22:59 Other: Weight 57.606 kg Results CBC & Chem 7: 05/19/23 14:40 05/19/23 08:35 Labs: Abnormal Lab Results - Last 24 Hours (Table) 05/19/23 05/19/23 05/19/23 Range/Units 08:21 08:35 08:35 WBC 12.2 H (3.8-10.6) k/uL RBC 3.44 L (3.80-5.40) m/uL Hgb 11.2 L (11.4-16.0) gm/dL Hct (34.0-46.0) % Neutrophils # 10.1 H (1.3-7.7) k/uL BUN (7-17) mg/dL Creatinine (0.52-1.04) mg/dL Glucose (74-99) mg/dL POC Glucose (mg/dL) 111 H (70-110) mg/dL Plasma Lactic Acid Jovani (0.7-2.0) mmol/L Total Protein (6.3-8.2) g/dL Urine Protein Trace H (Negative) Urine Ketones Trace H (Negative) Stool Occult Blood (Negative) 05/19/23 05/19/23 05/19/23 Range/Units 08:35 08:35 09:41 WBC (3.8-10.6) k/uL RBC (3.80-5.40) m/uL Hgb (11.4-16.0) gm/dL Hct (34.0-46.0) % Neutrophils # (1.3-7.7) k/uL BUN 59 H (7-17) mg/dL Creatinine 1.58 H (0.52-1.04) mg/dL Glucose 105 H (74-99) mg/dL POC Glucose (mg/dL) (70-110) mg/dL Plasma Lactic Acid Jovani 3.1 H* (0.7-2.0) mmol/L Total Protein 6.0 L (6.3-8.2) g/dL Urine Protein (Negative) Urine Ketones (Negative) Stool Occult Blood Positive H (Negative) 05/19/23 Range/Units 14:40 WBC (3.8-10.6) k/uL RBC 2.98 L (3.80-5.40) m/uL Hgb 9.9 L (11.4-16.0) gm/dL Hct 29.4 L (34.0-46.0) % Neutrophils # (1.3-7.7) k/uL BUN (7-17) mg/dL Creatinine (0.52-1.04) mg/dL Glucose (74-99) mg/dL POC Glucose (mg/dL) (70-110) mg/dL Plasma Lactic Acid Jovani (0.7-2.0) mmol/L Total Protein (6.3-8.2) g/dL Urine Protein (Negative) Urine Ketones (Negative) Stool Occult Blood (Negative)
[2023-05-19] MEDS: CARBIDOPA-LEVODOPA 25-100 MG 1 EACH TAB PO SCH (17:38)
[2023-05-19 18:01] LABS: Basophils % (A) 0 %; Eosinophils # (A) 0.1 k/uL (0-0.7); Eosinophils % (A) 1 %; HCT 29.9 % (34.0-46.0); HGB 9.9 gm/dL (11.4-16.0); Lymphocytes # (A) 1.1 k/uL (1.0-4.8); Lymphocytes % (A) 14 %; MCH 32.9 pg (25.0-35.0); MCHC 33.3 g/dL (31.0-37.0); Mean Platelet Volume 8.6; Monocytes # (A) 0.7 k/uL (0-1.0); Monocytes % (A) 8 %; Neutrophils # (A) 6.2 k/uL (1.3-7.7); Neutrophils % (A) 76 %; Platelet Count 257 k/uL (150-450); RBC 3.02 m/uL (3.80-5.40); RDW 12.3 % (11.5-15.5); WBC 8.1 k/uL (3.8-10.6)
[2023-05-19] MEDS: LOSARTAN 50 MG TAB PO SCH (20:45)
[2023-05-20] MEDS: CARBIDOPA-LEVODOPA 25-100 MG 1 EACH TAB PO SCH ×3 (06:50→15:11)
[2023-05-20 08:19] LABS: HCT 26.3 % (34.0-46.0); HGB 8.8 gm/dL (11.4-16.0); MCH 33.7 pg (25.0-35.0); MCHC 33.3 g/dL (31.0-37.0); MCV 101.1 fL (80.0-100.0); Mean Platelet Volume 8.6; Platelet Count 258 k/uL (150-450); RDW 12.2 % (11.5-15.5); WBC 8.7 k/uL (3.8-10.6)
[2023-05-20 08:21] LABS: African American GFR (CKD) 73 (>60 ml/min/1.73 sqM); Anion Gap 10 mmol/L; Blood Urea Nitrogen 63 mg/dL (7-17); Calcium 8.2 mg/dL (8.4-10.2); Carbon Dioxide 17 mmol/L (22-30); Chloride 111 mmol/L (98-107); Glucose 78 mg/dL (74-99); Non-African American GFR(CKD) 64 (>60 ml/min/1.73 sqM); Potassium 4.7 mmol/L (3.5-5.1); Sodium 138 mmol/L (137-145)
[2023-05-20] MEDS ORDERED: ENOXAPARIN 30 MG/0.3 ML SYRINGE SQ SCH (09:00)
[2023-05-20] MEDS: ESCITALOPRAM 5 MG TAB PO SCH (12:59)
[2023-05-20] MEDS: PANTOPRAZOLE 40 MG/10 ML VIAL IVP SCH (12:59)
--- NOTE | 2023-05-20 13:26 | P.PN ---
Subjective Progress Note Date: 05/20/23 78 year old F with PMH of Parkinsons, depression presents to the ED for dizziness. Patient is a poor historian and communication is difficult. Majority of information is obtained from the . Previously admitted from 05/07-05/08. Diagnosed with supine hypertension with orthostatic hypotension. Started on Nifedipine 30 mg PO QHS. Discharged on Keflex 500 mg PO BID x 5 days for treatment of UTI. PCP switched the Nifedipine to Losartan at a lowered dose. This morning, patient had a presyncopal episode while getting out of bed this morning. denies LOC or syncopal episode. Working on getting placement. In the ED she underwent extensive evaluation. CBC WBC 12.2, Hg 11.2 CMP BUN 59, Cr 1.58, glu 105 Lactic acid 3.1. Stool occult blood + UA negative for LE or nitrite. CXR and KUB no acute pathology. EKG sinus rhythm with PVCs. 05/20 Patient was seen and examined. SBP as high as 180s last night. Orthostats severely positive today. CBC Hg 8.8, Hct 26.3, MCV 101.1. BMP Cl 111, bicarb 17, BUN 63. Discussed the downtrend in Hg with regard to the + stool for occult blood. reports patient had a C-scope 3-4 years ago, negative, does not think patient can undergo prep for C-scope again. Plans to repeat CBC tomorrow morning. in the process of [facility], likely tomorrow. General: non toxic, no distress, appears at stated age Derm: warm, dry Head: atraumatic, normocephalic, symmetric Eyes: EOMI, no lid lag, anicteric sclera Cardiovascular: Normal S1 S2. good distal perfusion in all 4 extremities Lungs: CTA BL, breathing comfortably, no accessory muscle use Abd: TTP suprapubic area without rebound. Ext: no gross muscle atrophy, no edema, no contractures Neuro: Unable to perform Psyc: Flat affect. Based on my assessment of this patient, this patient meets a moderate complexity level of care. Patient has an acute diagnosis of presyncopal episode that poses a threat to life or bodily function. Normocytic anemia: Stool occult blood +. refusing C-scope or EGD which is understandable. Repeat CBC tomorrow morning. Transfuse if Hg < 7. Prerenal azotemia: Dehydration. Improved with IV hydration. DC IVF and encourage hydration by mouth. Orthostatic hypotension: Start Midodrine 5 mg PO BID. Thigh high stockings. Slow positional changes. PT and OT consult. Fall precautions. Supine hypertension: Continue Losartan 50 mg PO QHS. Resolved: Lactic acidosis CODE STATUS: FULL CODE DVT Prophylaxis: Lovenox SQ GI Prophylaxis: Designated medical POA if patient is not able to make medical decisions for themselves: I have reviewed the following product safety consultant notes: I have reviewed the results of the following tests: CBC, BMP I have ordered the following tests: CBC I have discussed the care of this patient with the following independent wv storian: I have independently interpreted the following test below: I have discussed the management of this patient with the following physician: Objective - Vital Signs Vital signs: Vital Signs Temp 97.8 F 05/20/23 08:26 Pulse 78 05/20/23 10:30 Resp 16 05/20/23 08:26 BP 127/73 05/20/23 10:30 Pulse Ox 100 05/20/23 08:26 FiO2 99 05/20/23 10:30 Intake & Output 05/19/23 05/20/23 05/20/23 18:59 06:59 18:59 Intake Total 118 Balance 118 Weight 57.606 kg 57.606 kg Intake: Oral 118 Other: Voiding Method Diaper External Catheter # Voids 1 - Labs CBC & Chem 7: 05/20/23 07:02 05/20/23 07:02 Labs: Abnormal Lab Results - Last 24 Hours (Table) 05/19/23 05/19/23 05/20/23 Range/Units 14:40 17:48 07:02 RBC 2.98 L 3.02 L 2.60 L (3.80-5.40) m/uL Hgb 9.9 L 9.9 L 8.8 L (11.4-16.0) gm/dL Hct 29.4 L 29.9 L 26.3 L (34.0-46.0) % MCV 101.1 H (80.0-100.0) fL Chloride (98-107) mmol/L Carbon Dioxide (22-30) mmol/L BUN (7-17) mg/dL Calcium (8.4-10.2) mg/dL 12/12/23 Range/Units 07:02 RBC (3.80-5.40) m/uL Hgb (11.4-16.0) gm/dL Hct (34.0-46.0) % MCV (80.0-100.0) fL Chloride 111 H (98-107) mmol/L Carbon Dioxide 17 L (22-30) mmol/L BUN 63 H (7-17) mg/dL Calcium 8.2 L (8.4-10.2) mg/dL
[2023-05-20] MEDS: MIDODRINE 5 MG TAB PO SCH ×2 (13:42→17:46)
--- NOTE | 2023-05-20 14:46 | P.GSCN ---
History of Present Illness Consult date: 05/20/23 History of present illness: CHIEF COMPLAINT: Fall HISTORY OF PRESENT ILLNESS: This is a 78-year-old female who presented to the hospital with falling and evidence of orthostatic hypotension. Patient received IV fluids. She also was noted to have anemia with a hemoglobin on admission of 11 minutes dropped to 8.8. Stool for occult blood is positive. She does take M obic at home. Patient denies any blood in her stools or any black stools. She does have some lower abdominal pain mostly in the left lower quadrant and suprapubic area. Denies any nausea or vomiting. Her last colonoscopy was in 2019 which had shown rectal polyp and diverticulosis. PAST MEDICAL HISTORY: Hypertension, Parkinson's, Renal Disease, diverticulosis, rectal polyp PAST SURGICAL HISTORY: Appendectomy, tubal ligation MEDICATIONS: See below ALLERGIES: See below SOCIAL HISTORY: No illicit drug use. REVIEW OF SYSTEMS: CONSTITUTIONAL: Denies fever or chills. HEENT: Denies blurred vision, vision changes, or eye pain. Denies hemoptysis CARDIOVASCULAR: Denies chest pain or pressure. RESPIRATORY: No shortness of breath. GASTROINTESTINAL: See HPI for pertinent findings HEMATOLOGIC: Denies bleeding disorders. GENITOURINARY: Denies any blood in urine or increased urinary frequency. SKIN: Denies pruitis. Denies rash. PHYSICAL EXAM: VITAL SIGNS: Reviewed GENERAL: Well-developed in no acute distress. ABDOMEN: Soft. Nondistended. Tenderness to palpation left lower quadrant and suprapubic area NEUROLOGIC: Awake and alert LABORATORY DATA: WBC is 8.7 Hgb 8.8 plt 258 na 138 K 4.7 Cr 0.88 IMAGING: ASSESSMENT: 1. Anemia with stool for occult blood positive 2. History of rectal polyp and diverticulosis 3. Fall and orthostatic hypotension PLAN: -Patient scheduled for colonoscopy on with Dr. Mills -Continue to monitor hemoglobin -Continue to monitor for any signs or symptoms of bleeding -Continue Protonix -Start clear liquid diet and bowel prep tomorrow morning Thank you for this consultation Physician Manager English note has been reviewed by physician. Signing provider agrees with the documented findings, assessment, and plan of care. Past Medical History Past Medical History: Hypertension, Neurologic Disorder, Renal Disease Additional Past Medical History / Comment(s): parkinsons,has mobility balance issues-uses cane when needed, has only rt kidney History of Any Multi-Drug Resistant Organisms: None Reported Past Surgical History: Appendectomy, Tubal Ligation Additional Past Surgical History / Comment(s): surgery for "floating" rt kidney Past Anesthesia/Blood Transfusion Reactions: Postoperative Nausea & Vomiting (PONV) Past Psychological History: No Psychological Hx Reported Smoking Status: Former smoker Past Alcohol Use History: Daily Additional Past Alcohol Use History / Comment(s): smoked 20-30 years "not alot" quit 15-20 years ago. drinks 1-2 shots/day Past Drug Use History: None Reported - Past Family History Daughter(s) Family Medical History: Diabetes Mellitus Medications and Allergies Home Medications Medication Instructions Recorded Confirmed Type Carbidopa-Levodopa 25-100 mg 2 tab PO TID@0600,1100,1500 01/19/19 05/19/23 History [Sinemet 25-100 mg] Escitalopram [Lexapro] 5 mg PO DAILY@1200 05/07/23 05/19/23 History Meloxicam [Mobic] 15 mg PO HS 05/07/23 05/19/23 History Losartan Potassium 50 mg PO HS 05/19/23 05/19/23 History Nitrofurantoin Monohyd/M-Cryst 100 mg PO BID 05/19/23 05/19/23 History [Macrobid] Allergies Allergy/AdvReac Type Severity Reaction Status Date / Time morphine Allergy Rash/Hives Verified 05/19/23 08:53 Surgical - Exam Vital Signs Temp Pulse Resp BP Pulse Ox 98.1 F 70 17 115/64 100 05/19/23 08:07 05/19/23 08:07 05/19/23 08:07 05/19/23 08:07 05/19/23 08:07 Results - Labs 05/20/23 07:02 05/20/23 07:02 Abnormal Lab Results - Last 24 Hours (Table) 05/19/23 05/19/23 05/20/23 Range/Units 14:40 17:48 07:02 RBC 2.98 L 3.02 L 2.60 L (3.80-5.40) m/uL Hgb 9.9 L 9.9 L 8.8 L (11.4-16.0) gm/dL Hct 29.4 L 29.9 L 26.3 L (34.0-46.0) % MCV 101.1 H (80.0-100.0) fL Chloride (98-107) mmol/L Carbon Dioxide (22-30) mmol/L BUN (7-17) mg/dL Calcium (8.4-10.2) mg/dL 05/20/23 Range/Units 07:02 RBC (3.80-5.40) m/uL Hgb (11.4-16.0) gm/dL Hct (34.0-46.0) % MCV (80.0-100.0) fL Chloride 111 H (98-107) mmol/L Carbon Dioxide 17 L (22-30) mmol/L BUN 63 H (7-17) mg/dL Calcium 8.2 L (8.4-10.2) mg/dL Diabetes panel 05/20/23 Range/Units 07:02 Sodium 138 (137-145) mmol/L Potassium 4.7 (3.5-5.1) mmol/L Chloride 111 H (98-107) mmol/L Carbon Dioxide 17 L (22-30) mmol/L BUN 63 H (7-17) mg/dL Creatinine 0.88 (0.52-1.04) mg/dL Glucose 78 (74-99) mg/dL Calcium 8.2 L (8.4-10.2) mg/dL Calcium panel 05/20/23 Range/Units 07:02 Calcium 8.2 L (8.4-10.2) mg/dL Pituitary panel 05/20/23 Range/Units 07:02 Sodium 138 (137-145) mmol/L Potassium 4.7 (3.5-5.1) mmol/L Chloride 111 H (98-107) mmol/L Carbon Dioxide 17 L (22-30) mmol/L BUN 63 H (7-17) mg/dL Creatinine 0.88 (0.52-1.04) mg/dL Glucose 78 (74-99) mg/dL Calcium 8.2 L (8.4-10.2) mg/dL Adrenal panel 05/20/23 Range/Units 07:02 Sodium 138 (137-145) mmol/L Potassium 4.7 (3.5-5.1) mmol/L Chloride 111 H (98-107) mmol/L Carbon Dioxide 17 L (22-30) mmol/L BUN 63 H (7-17) mg/dL Creatinine 0.88 (0.52-1.04) mg/dL Glucose 78 (74-99) mg/dL Calcium 8.2 L (8.4-10.2) mg/dL
[2023-05-20 18:15] LABS: HCT 25.5 % (34.0-46.0); HGB 8.4 gm/dL (11.4-16.0); MCH 32.8 pg (25.0-35.0); MCV 99.6 fL (80.0-100.0); Mean Platelet Volume 9.1; Platelet Count 290 k/uL (150-450); RBC 2.56 m/uL (3.80-5.40); RDW 12.4 % (11.5-15.5); WBC 9.1 k/uL (3.8-10.6)
[2023-05-20] MEDS ORDERED: ALPRAZolam 0.5 MG TAB PO STA (19:59)
[2023-05-20] MEDS: LOSARTAN 50 MG TAB PO SCH (20:33)
[2023-05-20] MEDS: SODIUM CHLORIDE 0.9% 1,000 ML IV SCH (20:34)
[2023-05-21] MEDS: CARBIDOPA-LEVODOPA 25-100 MG 1 EACH TAB PO SCH ×3 (05:29→17:21)
[2023-05-21] MEDS: MIDODRINE 5 MG TAB PO SCH ×2 (05:29→17:21)
[2023-05-21 06:26] LABS: HCT 24.8 % (34.0-46.0); HGB 8.1 gm/dL (11.4-16.0); MCH 32.6 pg (25.0-35.0); MCHC 32.7 g/dL (31.0-37.0); MCV 99.5 fL (80.0-100.0); Mean Platelet Volume 8.4; Platelet Count 270 k/uL (150-450); RBC 2.49 m/uL (3.80-5.40); RDW 12.3 % (11.5-15.5); WBC 7.2 k/uL (3.8-10.6)
[2023-05-21] MEDS: PANTOPRAZOLE 40 MG/10 ML VIAL IVP SCH ×2 (08:54→22:21)
[2023-05-21] MEDS ORDERED: ENOXAPARIN 40 MG/0.4 ML SYRINGE SQ SCH (09:00)
[2023-05-21] MEDS ORDERED: PEG 3350 (236 GM/BTL) + LYTES 4,000 ML BOTTLE PO ONE (09:00)
--- NOTE | 2023-05-21 11:12 | P.PN ---
Subjective Progress Note Date: 05/21/23 78 year old F with PMH of Parkinsons, depression presents to the ED for dizziness. Patient is a poor historian and communication is difficult. Majority of information is obtained from the . Previously admitted from 05/07-05/08. Diagnosed with supine hypertension with orthostatic hypotension. Started on Nifedipine 30 mg PO QHS. Discharged on Keflex 500 mg PO BID x 5 days for treatment of UTI. PCP switched the Nifedipine to Losartan at a lowered dose. This morning, patient had a presyncopal episode while getting out of bed this morning. denies LOC or syncopal episode. Working on getting placement. In the ED she underwent extensive evaluation. CBC WBC 12.2, Hg 11.2 CMP BUN 59, Cr 1.58, glu 105 Lactic acid 3.1. Stool occult blood + UA negative for LE or nitrite. CXR and KUB no acute pathology. EKG sinus rhythm with PVCs. 05/20 Patient was seen and examined. SBP as high as 180s last night. Orthostats severely positive today. CBC Hg 8.8, Hct 26.3, MCV 101.1. BMP Cl 111, bicarb 17, BUN 63. Discussed the downtrend in Hg with regard to the + stool for occult blood. reports patient had a C-scope 3-4 years ago, negative, does not think patient can undergo prep for C-scope again. Plans to repeat CBC tomorrow morning. in the process of [facility], likely tomorrow. 05/21 Patient was seen and examined. Patient had a large smelly tarry bowel movement yesterday and this morning. She will likely get EGD and C-scope tomorrow. This was discussed with the daughter who states family is in agreeable. CBC Hg 8.1 Hct 24.8. On discharge, patient requires a hospital bed for pain management. 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 The head of the bed must be elevated at more than 30 degrees most of the time to alleviate pain and avoid severe hypotensive episodes. General: non toxic, no distress, appears at stated age Derm: warm, dry Head: atraumatic, normocephalic, symmetric Eyes: EOMI, no lid lag, anicteric sclera Cardiovascular: Normal S1 S2. good distal perfusion in all 4 extremities Lungs: CTA BL, breathing comfortably, no accessory muscle use Abd: TTP suprapubic area without rebound. Ext: no gross muscle atrophy, no edema, no contractures Neuro: Unable to perform Psyc: Flat affect. Based on my assessment of this patient, this patient meets a moderate complexity level of care. Patient has an acute diagnosis of presyncopal episode that poses a threat to life or bodily function. Upper GI bleed: Stool occult blood +. C-scope and EGD tomorrow. Repeat CBC tomorrow morning. Transfuse if Hg < 7. Prerenal azotemia: Dehydration. Improved with IV hydration. DC IVF and encourage hydration by mouth. Orthostatic hypotension: Start Midodrine 5 mg PO BID. Thigh high stockings. Slow positional changes. PT and OT consult. Fall precautions. Supine hypertension: Continue Losartan 50 mg PO QHS. Resolved: Lactic acidosis CODE STATUS: FULL CODE DVT Prophylaxis: Lovenox SQ GI Prophylaxis: Designated medical POA if patient is not able to make medical decisions for themselves: I have reviewed the following funeral pre need consultant notes: I have reviewed the results of the following tests: CBC, BMP I have ordered the following tests: CBC I have discussed the care of this patient with the following independent historian: I have independently interpreted the following test below: I have discussed the management of this patient with the following physician: Discussed with Jacquelyn SANTO. Objective - Vital Signs Vital signs: Vital Signs Temp 97.8 F 05/21/23 08:00 Pulse 66 05/21/23 08:00 Resp 16 05/21/23 08:00 BP 91/55 05/21/23 08:00 Pulse Ox 100 05/21/23 08:00 FiO2 99 05/20/23 10:30 Intake & Output 05/20/23 05/21/23 05/21/23 18:59 06:59 18:59 Intake Total 354 Balance 354 Weight 57.606 kg Intake: Oral 354 Other: Voiding Method Diaper Diaper Diaper External Catheter External Catheter External Catheter # Voids 1 1 0 - Labs CBC & Chem 7: 05/21/23 05:56 05/20/23 07:02 Labs: Abnormal Lab Results - Last 24 Hours (Table) 05/20/23 05/21/23 Range/Units 18:02 05:56 RBC 2.56 L 2.49 L (3.80-5.40) m/uL Hgb 8.4 L 8.1 L (11.4-16.0) gm/dL Hct 25.5 L 24.8 L (34.0-46.0) %
[2023-05-21] MEDS: ESCITALOPRAM 5 MG TAB PO SCH (12:38)
--- NOTE | 2023-05-21 16:08 | P.PN ---
Subjective Progress Note Date: 05/21/23 CHIEF COMPLAINT: Follow with orthostatic hypotension HISTORY OF PRESENT ILLNESS: Surgical service following regards to patient's anemia. She did start to have black stools yesterday. Denies any abdominal pain. Hemoglobin 8.1. PHYSICAL EXAM: VITAL SIGNS: Reviewed. GENERAL: Well-developed in no acute distress. HEENT: No sclera icterus. Extraocular movements grossly intact. Moist buccal mucosa. Head is atraumatic, normocephalic. ABDOMEN: Soft. Nondistended. Nontender. NEUROLOGIC: Alert and oriented. Cranial nerves II through XII grossly intact. ASSESSMENT: 1. Anemia with black stools 2. History of rectal polyp and diverticulosis 3. Fall and orthostatic hypotension PLAN: -Patient scheduled for EGD and colonoscopy tomorrow with Dr. aparicio -Clear liquids and GoLYTELY bowel prep today -Nothing by mouth after midnight -Continue IV Protonix BID Physician Director Of Social Work note has been reviewed by physician. Signing provider agrees with the documented findings, assessment, and plan of care. Objective - Vital Signs Vital signs: Vital Signs Temp 97.8 F 05/21/23 08:00 Pulse 66 05/21/23 08:00 Resp 16 05/21/23 08:00 BP 91/55 05/21/23 08:00 Pulse Ox 100 05/21/23 08:00 FiO2 99 05/20/23 10:30 Intake & Output 05/20/23 05/21/23 05/21/23 18:59 06:59 18:59 Intake Total 354 Balance 354 Weight 57.606 kg Intake: Oral 354 Other: Voiding Method Diaper Diaper External Catheter External Catheter # Voids 1 1 0 - Labs CBC & Chem 7: 05/21/23 05:56 05/20/23 07:02 Labs: Abnormal Lab Results - Last 24 Hours (Table) 05/20/23 05/21/23 Range/Units 18:02 05:56 RBC 2.56 L 2.49 L (3.80-5.40) m/uL Hgb 8.4 L 8.1 L (11.4-16.0) gm/dL Hct 25.5 L 24.8 L (34.0-46.0) %
[2023-05-21] MEDS: SODIUM CHLORIDE 0.9% 1,000 ML IV SCH (17:21)
[2023-05-21] MEDS: LOSARTAN 50 MG TAB PO SCH (22:29)
[2023-05-22] MEDS: CARBIDOPA-LEVODOPA 25-100 MG 1 EACH TAB PO SCH ×3 (05:58→15:18)
[2023-05-22 06:16] LABS: HGB 7.6 gm/dL (11.4-16.0); MCH 32.5 pg (25.0-35.0); MCV 98.7 fL (80.0-100.0); Mean Platelet Volume 8.6; Platelet Count 245 k/uL (150-450); RBC 2.33 m/uL (3.80-5.40); RDW 12.4 % (11.5-15.5); WBC 6.5 k/uL (3.8-10.6)
[2023-05-22 06:29] LABS: African American GFR (CKD) 75 (>60 ml/min/1.73 sqM); Anion Gap 8 mmol/L; Blood Urea Nitrogen 19 mg/dL (7-17); Calcium 8.5 mg/dL (8.4-10.2); Carbon Dioxide 27 mmol/L (22-30); Chloride 106 mmol/L (98-107); Glucose 93 mg/dL (74-99); Non-African American GFR(CKD) 65 (>60 ml/min/1.73 sqM); Sodium 141 mmol/L (137-145)
[2023-05-22] MEDS ORDERED: fentaNYL (PF) 50 MCG/ML 2 ML AMP IV PRN (07:00)
[2023-05-22] MEDS: MIDODRINE 5 MG TAB PO SCH ×2 (09:11→17:37)
[2023-05-22] MEDS: PANTOPRAZOLE 40 MG/10 ML VIAL IVP SCH ×2 (09:11→19:49)
[2023-05-22] MEDS: LACTATED RINGERS 1,000 ML IV SCH (09:20)
[2023-05-22] MEDS ORDERED: IV FLUID CONTINUATION 900 ML IV ONE (10:22)
[2023-05-22] MEDS ORDERED: LIDOCAINE 1% INJ 10MG/ML (20 ML MDV) ONE (10:23)
[2023-05-22] MEDS ORDERED: PROPOFOL 10 MG/ML 20 ML VIAL IV ONE (10:23)
--- NOTE | 2023-05-22 10:59 | P.OP ---
Date of Procedure: 05/22/23 Preoperative Diagnosis: GI bleed Postoperative Diagnosis: Antral gastritis Mild diverticulosis Procedure(s) Performed: Endoscopy EGD Anesthesia: DERICK Surgeon: Reed Mills Pathology: other (Antrum) Condition: stable Disposition: PACU Description of Procedure: The patient's placed on the endoscopy table in the lateral position. She received IV sedation. The gastroscope placed oropharynx passed in the esophagus and stomach. Scope was placed through the pylorus. The first and second portion of the duodenum appeared normal. Scope was then brought back the antrum and this appeared mildly inflamed. A biopsies performed. Scope was then retroflexed and the remainder the stomach appeared normal. There was no significant hiatal hernia. The GE junction was at 47 is. The distal esophagus appeared normal. The proximal esophagus appeared normal. Scope withdrawn for patient. Next digital rectus performed. This revealed no abnormalities. Flexible colonoscope was then placed patient anus passed throughout the entire colon. The ileocecal valve was visualized. The cecum, ascending and transverse colon appeared normal. The descending and sigmoid colon had some minimal diverticular changes. The scope was brought back the rectum and this appeared normal. Scope withdrawn for patient. Area there is no evidence of any GI bleed.
[2023-05-22] MEDS: SODIUM CHLORIDE 0.9% 1,000 ML IV SCH (11:17)
[2023-05-22] MEDS: ESCITALOPRAM 5 MG TAB PO SCH (11:17)
--- NOTE | 2023-05-22 13:13 | P.PN ---
Subjective Progress Note Date: 05/22/23 78 year old F with PMH of Parkinsons, depression presents to the ED for dizziness. Patient is a poor historian and communication is difficult. Majority of information is obtained from the . Previously admitted from 05/07-05/08. Diagnosed with supine hypertension with orthostatic hypotension. Started on Nifedipine 30 mg PO QHS. Discharged on Keflex 500 mg PO BID x 5 days for treatment of UTI. PCP switched the Nifedipine to Losartan at a lowered dose. This morning, patient had a presyncopal episode while getting out of bed this morning. denies LOC or syncopal episode. Working on getting placement. In the ED she underwent extensive evaluation. CBC WBC 12.2, Hg 11.2 CMP BUN 59, Cr 1.58, glu 105 Lactic acid 3.1. Stool occult blood + UA negative for LE or nitrite. CXR and KUB no acute pathology. EKG sinus rhythm with PVCs. 05/20 Patient was seen and examined. SBP as high as 180s last night. Orthostats severely positive today. CBC Hg 8.8, Hct 26.3, MCV 101.1. BMP Cl 111, bicarb 17, BUN 63. Discussed the downtrend in Hg with regard to the + stool for occult blood. reports patient had a C-scope 3-4 years ago, negative, does not think patient can undergo prep for C-scope again. Plans to repeat CBC tomorrow morning. in the process of [facility], likely tomorrow. 05/21 Patient was seen and examined. Patient had a large smelly tarry bowel movement yesterday and this morning. She will likely get EGD and C-scope tomorrow. This was discussed with the daughter who states family is in agreeable. CBC Hg 8.1 Hct 24.8. 05/22 Patient was seen and examined. Underwent EGD and C-scope today which showed antral gastritis and mild diverticulosis. Appears drowsy post EGD/C- scope. CBC Hg 7.6 Hct 23. BMP BUN 19. Discussed results with at bedside. On discharge, patient requires a hospital bed for pain management. 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 The head of the bed must be elevated at more than 30 degrees most of the time to alleviate pain and avoid severe hypotensive episodes. General: non toxic, no distress, appears at stated age Derm: warm, dry Head: atraumatic, normocephalic, symmetric Eyes: EOMI, no lid lag, anicteric sclera Cardiovascular: Normal S1 S2. good distal perfusion in all 4 extremities Lungs: CTA BL, breathing comfortably, no accessory muscle use Abd: NTTP Ext: no gross muscle atrophy, no edema, no contractures Neuro: Unable to perform Psyc: Flat affect. Based on my assessment of this patient, this patient meets a moderate complexity level of care. Patient has an acute diagnosis of presyncopal episode that poses a threat to life or bodily function. Upper GI bleed: Stool occult blood +. C-scope and EGD showing antral gastritis and diverticulosis. Repeat CBC tomorrow morning. Transfuse if Hg < 7. Prerenal azotemia: Dehydration. Improved with IV hydration. DC IVF and encourage hydration by mouth. Orthostatic hypotension: Start Midodrine 5 mg PO BID. Thigh high stockings. Slow positional changes. PT and OT consult. Fall precautions. Supine hypertension: Continue Losartan 50 mg PO QHS. Resolved: Lactic acidosis Patient appears drowsy since her procedure this morning. We will monitor the patient overnight. Plans for [facility] tomorrow. CODE STATUS: FULL CODE DVT Prophylaxis: Lovenox SQ GI Prophylaxis: Designated medical POA if patient is not able to make medical decisions for themselves: I have reviewed the following guidance consultant notes: Operative report. I have reviewed the results of the following tests: CBC, BMP I have ordered the following tests: CBC. Iron studies I have discussed the care of this patient with the following independent historian: . I have independently interpreted the following test below: I have discussed the management of this patient with the following physician: Objective - Vital Signs Vital signs: Vital Signs Temp 97.2 F L 05/22/23 07:00 Pulse 75 05/22/23 07:00 Resp 18 05/22/23 07:00 BP 108/59 05/22/23 07:00 Pulse Ox 97 05/22/23 07:00 FiO2 99 05/20/23 10:30 Intake & Output 05/21/23 05/22/23 05/22/23 18:59 06:59 18:59 Intake Total 210 400 Balance 210 400 Intake: IV 400 Oral 210 Other: Voiding Method Diaper Diaper Diaper External Catheter # Voids 1 2 0 # Bowel Movements 2 1 - Labs CBC & Chem 7: 05/22/23 05:55 05/22/23 05:55 Labs: Abnormal Lab Results - Last 24 Hours (Table) 05/22/23 05/22/23 Range/Units 05:55 05:55 RBC 2.33 L (3.80-5.40) m/uL Hgb 7.6 L (11.4-16.0) gm/dL Hct 23.0 L (34.0-46.0) % BUN 19 H (7-17) mg/dL
[2023-05-22] MEDS: LOSARTAN 50 MG TAB PO SCH (21:50)
[2023-05-23 03:53] LABS: % Iron Saturation 33.5 (12.00-45.00)
[2023-05-23] MEDS: LACTATED RINGERS 1,000 ML IV SCH (04:44)
[2023-05-23 06:00] LABS: HCT 22.2 % (34.0-46.0); HGB 7.3 gm/dL (11.4-16.0); MCH 32.5 pg (25.0-35.0); MCHC 32.8 g/dL (31.0-37.0); MCV 99.2 fL (80.0-100.0); Mean Platelet Volume 8.5; Platelet Count 250 k/uL (150-450); RBC 2.24 m/uL (3.80-5.40); RDW 12.5 % (11.5-15.5)
[2023-05-23] MEDS: CARBIDOPA-LEVODOPA 25-100 MG 1 EACH TAB PO SCH ×3 (06:46→15:53)
[2023-05-23] MEDS ORDERED: TAMSULOSIN 0.4 MG CAP.ER.24H PO SCH (10:30)
[2023-05-23] MEDS: MIDODRINE 5 MG TAB PO SCH ×4 (12:01→18:14)
[2023-05-23] MEDS: ESCITALOPRAM 5 MG TAB PO SCH (12:41)
[2023-05-23] MEDS: PANTOPRAZOLE 40 MG/10 ML VIAL IVP SCH (12:42)
--- NOTE | 2023-05-23 13:22 | P.PN ---
Subjective Progress Note Date: 05/23/23 CHIEF COMPLAINT: Fall with orthostatic hypotension HISTORY OF PRESENT ILLNESS: Patient is status post EGD and colonoscopy results had shown antral gastritis and mild diverticulosis. No signs of active ble eding. Patient denies any abdominal pain. She does tolerate diet. Her oral intake is decreased but per her this is not anything new. There is been no further black stools or any blood in the stools. Hemoglobin stable at 7.3 PHYSICAL EXAM: VITAL SIGNS: Reviewed. GENERAL: Well-developed in no acute distress. ABDOMEN: Soft. Nondistended. Nontender. ASSESSMENT: 1. Anemia with black stools. now resolved. EGD and colonoscopy revealing antral gastritis and mild diverticulosis 2. History of rectal polyp and diverticulosis 3. Fall and orthostatic hypotension PLAN: -Patient can be discharged from surgical standpoint when medically cleared -Continue Protonix -Surgical service will sign off. Please call with any questions or concerns Physician Safety And Security Manager note has been reviewed by physician. Signing provider agrees with the documented findings, assessment, and plan of care. Objective - Vital Signs Vital signs: Vital Signs Temp 97.7 F 05/23/23 12:29 Pulse 66 05/23/23 12:29 Resp 15 05/23/23 12:29 BP 122/63 05/23/23 12:29 Pulse Ox 95 05/23/23 07:00 FiO2 99 05/20/23 10:30 Intake & Output 05/22/23 05/23/23 05/23/23 18:59 06:59 18:59 Intake Total 730 118 Output Total 600 1178 Balance 730 -600 -1060 Intake: IV 400 Intake, IV Titration 150 Amount Lactated Ringers 1,000 ml 100 @ 20 mls/hr IV .Q24H SHARITA Rx#:[id number] Sodium Chloride 0.9% 1, 50 000 ml @ 50 mls/hr IV . Q20H SHARITA Rx#:[id number] Oral 180 118 Output: Urine 600 600 Straight 600 Post Void Residual 578 Other: Voiding Method Diaper Diaper Diaper # Voids 1 1 - Labs CBC & Chem 7: 05/23/23 05:15 05/22/23 05:55 Labs: Abnormal Lab Results - Last 24 Hours (Table) 05/22/23 05/23/23 Range/Units 05:55 05:15 RBC 2.24 L (3.80-5.40) m/uL Hgb 7.3 L (11.4-16.0) gm/dL Hct 22.2 L (34.0-46.0) % TIBC 206 L (228-460) UG/DL Transferrin 147.0 L (204.0-354.0) mg/dL Ferritin 412.0 H (10.0-291.0) ng/mL
[2023-05-23] MEDS ORDERED: SODIUM CHLORIDE 0.9% 500 ML 500 ML IV ONE (14:00)
--- NOTE | 2023-05-23 15:32 | P.PN ---
Subjective Progress Note Date: 05/23/23 78 year old F with PMH of Parkinsons, depression presents to the ED for dizziness. Patient is a poor historian and communication is difficult. Majority of information is obtained from the . Previously admitted from 05/07-05/08. Diagnosed with supine hypertension with orthostatic hypotension. Started on Nifedipine 30 mg PO QHS. Discharged on Keflex 500 mg PO BID x 5 days for treatment of UTI. PCP switched the Nifedipine to Losartan at a lowered dose. This morning, patient had a presyncopal episode while getting out of bed this morning. denies LOC or syncopal episode. Working on getting placement. In the ED she underwent extensive evaluation. CBC WBC 12.2, Hg 11.2 CMP BUN 59, Cr 1.58, glu 105 Lactic acid 3.1. Stool occult blood + UA negative for LE or nitrite. CXR and KUB no acute pathology. EKG sinus rhythm with PVCs. 05/20 SBP as high as 180s last night. Orthostats severely positive today. CBC Hg 8.8. Discussed the downtrend in Hg with regard to the + stool for occult blood. reports patient had a C-scope 3-4 years ago, negative, does not think patient can undergo prep for C-scope again. in the process of [facility], likely tomorrow. 05/21 Patient had a large smelly tarry bowel movement yesterday and this morning. She will likely get EGD and C-scope tomorrow. This was discussed with the daughter who states family is in agreeable. CBC Hg 8.1 Hct 24.8. 05/22 Underwent EGD and C-scope today which showed antral gastritis and mild diverticulosis. Appears drowsy post EGD/C-scope. CBC Hg 7.6 Hct 23. 05/23 Patient was seen and examined. Severely orthostatic when trying to stand up to use the commode. has concerns about transferring the patient to [facility], discussed with MILES Deluna, decision made that patient will go home with arranging more help around the house. Hospital bed to hopefully be delivered tomorrow. This morning she is retaining 578cc on bladder scan after voiding 75 cc requiring straight cath. CBC Hg 7.3 Hct 22.2. On discharge, patient requires a hospital bed for pain management. 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 The head of the bed must be elevated at more than 30 degrees most of the time to alleviate pain and avoid severe hypotensive episodes. General: non toxic, no distress, appears at stated age Derm: warm, dry Head: atraumatic, normocephalic, symmetric Eyes: EOMI, no lid lag, anicteric sclera Cardiovascular: Normal S1 S2. good distal perfusion in all 4 extremities Lungs: CTA BL, breathing comfortably, no accessory muscle use Abd: NTTP Ext: no gross muscle atrophy, no edema, no contractures Neuro: Unable to perform Psyc: Flat affect. Based on my assessment of this patient, this patient meets a moderate complexity level of care. Patient has an acute diagnosis of presyncopal episode that poses a threat to life or bodily function. Urinary retention: Bladder scan BID ordered, started on Flomax 0.4 mg PO QD, Urology consult. is aware she may have to straight cath at home. Her urinary retention is likely related to neurogenic bladder from advanced Par kinsons disease. I have started the patient on Oxybutynin but recommend Mirabegron on discharge (not on formulary). Upper GI bleed: Stool occult blood +. C-scope and EGD showing antral gastritis and diverticulosis. Repeat CBC tomorrow morning. Transfuse if Hg < 7. Prerenal azotemia: Dehydration. Improved with IV hydration. DC IVF and encourage hydration by mouth. Orthostatic hypotension: Increase Midodrine to 10 mg PO BID. Thigh high stockings. Slow positional changes. PT and OT consult. Fall precautions. Supine hypertension: Continue Losartan 50 mg PO QHS. Resolved: Lactic acidosis Plans for hopeful discharge home tomorrow with home health if able to get hospital bed delivered to home, hemoglobin remains stable and patient able to void. CODE STATUS: FULL CODE DVT Prophylaxis: Lovenox SQ GI Prophylaxis: Designated medical POA if patient is not able to make medical decisions for themselves: I have reviewed the following solutions architect consultant notes: Surgery report. I have reviewed the results of the following tests: CBC I have ordered the following tests: CBC I have discussed the care of this patient with the following independent historian: and daughter. I have independently interpreted the following test below: I have discussed the management of this patient with the following physician: Objective - Vital Signs Vital signs: Vital Signs Temp 98.0 F 05/23/23 14:04 Pulse 69 05/23/23 14:04 Resp 14 05/23/23 14:04 BP 104/56 05/23/23 14:04 Pulse Ox 97 05/23/23 14:04 FiO2 99 05/20/23 10:30 Intake & Output 05/22/23 05/23/23 05/23/23 18:59 06:59 18:59 Intake Total 730 358 Output Total 600 1178 Balance 730 -600 -820 Intake: IV 400 Intake, IV Titration 150 Amount Lactated Ringers 1,000 ml 100 @ 20 mls/hr IV .Q24H SHARITA Rx#:[id number] Sodium Chloride 0.9% 1, 50 000 ml @ 50 mls/hr IV . Q20H SHARITA Rx#:[id number] Oral 180 358 Output: Urine 600 600 Straight 600 Post Void Residual 578 Other: Voiding Method Diaper Diaper Diaper # Voids 1 1 - Labs CBC & Chem 7: 05/23/23 05:15 05/22/23 05:55 Labs: Abnormal Lab Results - Last 24 Hours (Table) 05/22/23 05/23/23 Range/Units 05:55 05:15 RBC 2.24 L (3.80-5.40) m/uL Hgb 7.3 L (11.4-16.0) gm/dL Hct 22.2 L (34.0-46.0) % TIBC 206 L (228-460) UG/DL Transferrin 147.0 L (204.0-354.0) mg/dL Ferritin 412.0 H (10.0-291.0) ng/mL
[2023-05-23] MEDS: PANTOPRAZOLE 40 MG TABLET PO SCH (18:14)
[2023-05-23] MEDS: LOSARTAN 50 MG TAB PO SCH (20:01)
[2023-05-23] MEDS: oxyBUTYnin chloride 5 MG TAB PO SCH (20:01)
[2023-05-24 04:41] LABS: HCT 20.7 % (34.0-46.0); MCH 32.6 pg (25.0-35.0); MCHC 32.6 g/dL (31.0-37.0); MCV 99.9 fL (80.0-100.0); Mean Platelet Volume 8.5; Platelet Count 244 k/uL (150-450); RBC 2.07 m/uL (3.80-5.40); RDW 12.6 % (11.5-15.5); WBC 5.1 k/uL (3.8-10.6)
[2023-05-24 04:54] LABS: HGB 6.8 gm/dL (11.4-16.0)
[2023-05-24] MEDS: LACTATED RINGERS 1,000 ML IV SCH (05:37)
[2023-05-24] MEDS: MIDODRINE 5 MG TAB PO SCH ×2 (05:47→17:58)
[2023-05-24] MEDS: CARBIDOPA-LEVODOPA 25-100 MG 1 EACH TAB PO SCH ×3 (05:47→16:03)
[2023-05-24] MEDS: PANTOPRAZOLE 40 MG TABLET PO SCH ×2 (05:47→17:58)
[2023-05-24] MEDS: oxyBUTYnin chloride 5 MG TAB PO SCH ×2 (09:11→20:03)
[2023-05-24] MEDS: ESCITALOPRAM 5 MG TAB PO SCH (11:46)
--- NOTE | 2023-05-24 19:34 | P.PN ---
Subjective Progress Note Date: 05/24/23 Hospital course: Patient is a 78-year-old female with a past medical history of Parkinson's disease, depression, hypertension, and orthostatic hypotension. She presented to the emergency department on 05/19/23 with a chief complaint of dizziness. Physical exam: Vital signs reviewed and stable. General: Nontoxic, no distress and appears stated age. Derm: Skin warm and dry, normal coloration for ethnicity. Head: Atraumatic, normocephalic and symmetric. Eyes: EOMs intact, no lid lag, and anicteric sclera Mouth: no lip lesions, mucus membranes moist Cardiovascular: regular rate and rhythm with normal S1S2, no murmur, positive posterior tibial pulses bilaterally, and cap refill < 2 seconds. Lungs: Respirations even, regular, and unlabored on room air. Lungs CTA bilater ally, no rhonchi, no rales, no wheezing, and no accessory muscle usage. Abdominal: soft, nontender to palpation, no guarding, no appreciable organomegaly Ext: ROM intact. No gross muscle atrophy, no edema, no contractures Neuro: Speech clear, face symmetrical and CN II-XII grossly intact with no noted focal neuro deficits Psych: Alert and oriented to person, place, time, and situation. Appropriate and pleasant affect. Assessment and Plan of Care: Severe orthostatic hypotension -Continued midodrine 10 mg 3 times daily -ELISSA hose -Fall precautions -Encourage patient to change positions slowly from lying to sitting, sitting to standing, and standing before walking. -Order placed for PT/OT. -Patient will require placement in ECF. Per family a baseline patient typically ambulatory with walker at home and over the past 2 weeks has significantly declined. Acute blood loss anemia -Patient underwent EGD was diagnosed with antral gastritis. -Anemia worsening, hemoglobin 6.8 this morning requiring transfusion with 1 unit PRBCs. -Continue Protonix 40 mg twice a day. -Continue telemetry monitoring. Hypertension -Continue daily medication regimen with losartan 50 mg nightly. Parkinson's disease -Continue carbidopa levodopa 25/100 mg tablets take 2 tablets 3 times daily and Ditropan 5 mg twice daily Depression -Continue Lexapro 5 g daily. CODE STATUS: Full code DVT prophylaxis: ELISSA hose and SCDs Anticipated discharge date: Pending insurance authorization, Anticipated discharge place: Family requesting [facility] Patient was seen independently by Nurse Pracitioner. This document was prepared using videof.me dictation software. Please allow for errors in commercial cleaner, while rare they do occur. Vincent Rodrigues, CASH SPECIALIST rendered care for this patient independently, reviewed the findings and plan as documented in the note above. I did not physically speak with or examine the patient on this date. Objective - Vital Signs Vital signs: Vital Signs Temp 97.8 F 05/24/23 07:00 Pulse 67 05/24/23 07:00 Resp 15 05/24/23 07:00 BP 116/65 05/24/23 07:00 Pulse Ox 95 05/24/23 07:00 FiO2 99 05/20/23 10:30 Intake & Output 05/23/23 05/24/23 05/24/23 18:59 06:59 18:59 Intake Total 476 Output Total 1527 Balance -1051 Intake: Oral 476 Output: Urine 600 Straight 600 Post Void Residual 927 Other: Voiding Method Diaper Diaper # Voids 1 # Bowel Movements 1 1 - Labs CBC & Chem 7: 05/26/23 05:56 05/26/23 05:56 Labs: Abnormal Lab Results - Last 24 Hours (Table) 05/24/23 05/24/23 Range/Units 04:12 06:08 RBC 2.07 L (3.80-5.40) m/uL Hgb 6.8 L* (11.4-16.0) gm/dL Hct 20.7 L (34.0-46.0) % Crossmatch See Detail
[2023-05-24] MEDS: LOSARTAN 50 MG TAB PO SCH (20:03)
[2023-05-25] MEDS: LACTATED RINGERS 1,000 ML IV SCH (05:10)
[2023-05-25] MEDS: PANTOPRAZOLE 40 MG TABLET PO SCH ×2 (05:43→17:37)
[2023-05-25] MEDS: CARBIDOPA-LEVODOPA 25-100 MG 1 EACH TAB PO SCH ×3 (05:43→14:58)
[2023-05-25] MEDS: MIDODRINE 5 MG TAB PO SCH ×2 (05:43→17:38)
[2023-05-25 07:11] LABS: ALT 6 U/L (4-34); AST 16 U/L (14-36); African American GFR (CKD) 62 (>60 ml/min/1.73 sqM); Albumin 2.9 g/dL (3.5-5.0); Albumin/Globulin Ratio 1.3; Alkaline Phosphatase 59 U/L (38-126); Anion Gap 3 mmol/L; Blood Urea Nitrogen 10 mg/dL (7-17); Calcium 8.6 mg/dL (8.4-10.2); Carbon Dioxide 28 mmol/L (22-30); Chloride 107 mmol/L (98-107); Globulin 2.2 g/dL; Glucose 96 mg/dL (74-99); Magnesium 1.9 mg/dL (1.6-2.3); Non-African American GFR(CKD) 54 (>60 ml/min/1.73 sqM); Sodium 138 mmol/L (137-145); Total Bilirubin 0.7 mg/dL (0.2-1.3); Total Protein 5.1 g/dL (6.3-8.2)
[2023-05-25 08:55] LABS: HCT 26.5 % (34.0-46.0); MCH 32.2 pg (25.0-35.0); MCHC 33.4 g/dL (31.0-37.0); MCV 96.4 fL (80.0-100.0); Mean Platelet Volume 9.8; Platelet Count 254 k/uL (150-450); RBC 2.75 m/uL (3.80-5.40); RDW 13.3 % (11.5-15.5)
[2023-05-25 09:07] LABS: HGB 8.9 gm/dL (11.4-16.0)
[2023-05-25] MEDS: oxyBUTYnin chloride 5 MG TAB PO SCH ×2 (09:13→20:10)
[2023-05-25] MEDS: ESCITALOPRAM 5 MG TAB PO SCH (11:55)
--- NOTE | 2023-05-25 12:37 | P.GSCN ---
History of Present Illness Consult date: 05/25/23 Reason for Consult: Urinary retention History of present illness: This is a 78-year-old female with history of Parkinson disease admitted to the hospital with dizziness and GI bleed. Urology is consulted for urinary retention. Patient initially was having an elevated postvoid residual scan, but more recently her scans have ranged from 30-80 mL. She is able to void but dose have urinary incontinence she is on Ditropan. No previous history of urinary retention. Denies any difficulty urinating, dysuria or gross hematuria Review of Systems - Constitutional Denies fever, Denies weight loss - EENT Ears, nose, mouth and throat: Denies dysphagia - Cardiovascular Denies chest pain, Denies shortness of breath - Gastrointestinal Reports as per HPI - Genitourinary Genitourinary: Denies dysuria, Denies hematuria Past Medical History Past Medical History: Hypertension, Neurologic Disorder, Renal Disease Additional Past Medical History / Comment(s): parkinsons,has mobility balance issues-uses cane when needed, has only rt kidney History of Any Multi-Drug Resistant Organisms: None Reported Past Surgical History: Appendectomy, Tubal Ligation Additional Past Surgical History / Comment(s): surgery for "floating" rt kidney Past Anesthesia/Blood Transfusion Reactions: Postoperative Nausea & Vomiting (PONV) Past Psychological History: No Psychological Hx Reported Smoking Status: Former smoker Past Alcohol Use History: Daily Additional Past Alcohol Use History / Comment(s): smoked 20-30 years "not alot" quit 15-20 years ago. drinks 1-2 shots/day Past Drug Use History: None Reported - Past Family History Daughter(s) Family Medical History: Diabetes Mellitus Medications and Allergies Home Medications Medication Instructions Recorded Confirmed Type Carbidopa-Levodopa 25-100 mg 2 tab PO TID@0600,1100,1500 01/19/19 05/19/23 History [Sinemet 25-100 mg] Escitalopram [Lexapro] 5 mg PO DAILY@1200 05/07/23 05/19/23 History Losartan Potassium 50 mg PO HS 05/19/23 05/19/23 History Nitrofurantoin Monohyd/M-Cryst 100 mg PO BID 05/19/23 05/19/23 History [Macrobid] Acetaminophen Tab [Tylenol] 650 mg PO Q4H PRN #30 tab 05/23/23 Rx Midodrine [ProAmatine] 5 mg PO AC-BID tab 05/23/23 Rx Pantoprazole [Protonix] 40 mg PO DAILY #30 tab 05/23/23 Rx Allergies Allergy/AdvReac Type Severity Reaction Status Date / Time morphine Allergy Rash/Hives Verified 05/19/23 08:53 Surgical - Exam Vital Signs Temp Pulse Resp BP Pulse Ox 98.1 F 70 17 115/64 100 05/19/23 08:07 05/19/23 08:07 05/19/23 08:07 05/19/23 08:07 05/19/23 08:07 - General no distress, no pain - Eyes normal ocular movement, no pale - ENT normal nares, normal mucosa - Respiratory normal expansion, normal respiratory effort - Abdomen Abdomen: soft, non tender - Psychiatric oriented to time, oriented to person, oriented to place Results - Labs 05/25/23 06:17 05/25/23 06:17 Abnormal Lab Results - Last 24 Hours (Table) 05/24/23 05/25/23 05/25/23 Range/Units 06:08 06:17 06:17 WBC 11.0 H (3.8-10.6) k/uL RBC 2.75 L (3.80-5.40) m/uL Hgb 8.9 L D (11.4-16.0) gm/dL Hct 26.5 L (34.0-46.0) % Total Protein 5.1 L (6.3-8.2) g/dL Albumin 2.9 L (3.5-5.0) g/dL Crossmatch See Detail Diabetes panel 05/25/23 Range/Units 06:17 Sodium 138 (137-145) mmol/L Potassium 4.0 (3.5-5.1) mmol/L Chloride 107 (98-107) mmol/L Carbon Dioxide 28 (22-30) mmol/L BUN 10 (7-17) mg/dL Creatinine 1.01 (0.52-1.04) mg/dL Glucose 96 (74-99) mg/dL Calcium 8.6 (8.4-10.2) mg/dL AST 16 (14-36) U/L ALT 6 (4-34) U/L Alkaline Phosphatase 59 (38-126) U/L Total Protein 5.1 L (6.3-8.2) g/dL Albumin 2.9 L (3.5-5.0) g/dL Calcium panel 05/25/23 Range/Units 06:17 Calcium 8.6 (8.4-10.2) mg/dL Albumin 2.9 L (3.5-5.0) g/dL Pituitary panel 05/25/23 Range/Units 06:17 Sodium 138 (137-145) mmol/L Potassium 4.0 (3.5-5.1) mmol/L Chloride 107 (98-107) mmol/L Carbon Dioxide 28 (22-30) mmol/L BUN 10 (7-17) mg/dL Creatinine 1.01 (0.52-1.04) mg/dL Glucose 96 (74-99) mg/dL Calcium 8.6 (8.4-10.2) mg/dL Adrenal panel 05/25/23 Range/Units 06:17 Sodium 138 (137-145) mmol/L Potassium 4.0 (3.5-5.1) mmol/L Chloride 107 (98-107) mmol/L Carbon Dioxide 28 (22-30) mmol/L BUN 10 (7-17) mg/dL Creatinine 1.01 (0.52-1.04) mg/dL Glucose 96 (74-99) mg/dL Calcium 8.6 (8.4-10.2) mg/dL Total Bilirubin 0.7 (0.2-1.3) mg/dL AST 16 (14-36) U/L ALT 6 (4-34) U/L Alkaline Phosphatase 59 (38-126) U/L Total Protein 5.1 L (6.3-8.2) g/dL Albumin 2.9 L (3.5-5.0) g/dL Assessment and Plan Assessment: An 78-year-old female with history of Parkinson disease, urology is consulted for incomplete bladder emptying, her postvoid residuals is 30-80 mL's. This is within normal range for patient age. Given her Parkinson disease this can cause some of her voiding dysfunction. At this point given her low volume postvoid residual no Jennings catheter is needed. Please contact urology back if patient status changes
--- NOTE | 2023-05-25 16:56 | P.PN ---
Subjective Progress Note Date: 05/25/23 Hospital course: Patient is a 78-year-old female with a past medical history of Parkinson's disease, depression, hypertension, and orthostatic hypotension. She presented to the emergency department on 05/19/23 with a chief complaint of dizziness. She underwent full evaluation. Labs were completed and reviewed. CBC showing mild leukocytosis with WBC count of 12.2 and normocytic anemia with hemoglobin of 11.2. BMP revealed acute kidney injury with BUN of 59, creatinine 1.58, and GFR 31. Initial lactate 3.1. Chest x-ray is negative for acute cardiopulmonary process. EKG showing normal sinus rhythm with occasional PAC at 71 bpm, showing no T-wave or ST abnormalities. KUB completed negative for acute process showing nonspecific bowel gas pattern and no significant fecal retention. Patient was admitted under our services at that time. Repeat labs showing further drop in hemoglobin and consult was placed to general surgery. General surgery took patient for endoscopy on 05/22/23 which was reported to be negative for any evidence of GI bleed showing mild antral gastritis and mild diverticulosis with no signs of diverticulitis. Patient continue to monitor closely. Patient had persistently worsening drop in hemoglobin daily. On 05/24/23 hemoglobin resulting at 6.8 requiring transfusion of 1 unit PRBCs. Physical exam: Patient seen and fully evaluated at bedside this morning. Family at bedside visiting. Patient denies having any pain or complaints at this time. Patient continues to report overall weakness. Hemoglobin has improved status post transfusion and is currently 8.9. We will continue to monitor closely. Vital signs reviewed and stable. General: Nontoxic, no distress and appears stated age. Frail. Derm: Skin warm and dry, pallor. Head: Atraumatic, normocephalic and symmetric. Eyes: EOMs intact, no lid lag, and anicteric sclera Mouth: no lip lesions, mucus membranes moist Cardiovascular: regular rate and rhythm with normal S1S2, no murmur, positive posterior tibial pulses bilaterally, and cap refill < 2 seconds. Lungs: Respirations even, regular, and unlabored on room air. Lungs CTA bilaterally, no rhonchi, no rales, no wheezing, and no accessory muscle usage. Abdominal: soft, nontender to palpation, no guarding, no appreciable organomegaly Ext: ROM intact. No gross muscle atrophy, no edema, no contractures Neuro: Speech clear, face symmetrical and CN II-XII grossly intact with no noted focal neuro deficits Psych: Alert and oriented to person, place, time, and situation. Appropriate and pleasant affect. Assessment and Plan of Care: Severe orthostatic hypotension -Continued midodrine 10 mg 3 times daily -ELISSA hose -Fall precautions -Encourage patient to change positions slowly from lying to sitting, sitting to standing, and standing before walking. -Order placed for PT/OT. -Patient will require placement in ECF. Per family a baseline patient typically ambulatory with walker at home and over the past 2 weeks has significantly declined. Acute blood loss anemia -Patient underwent EGD was diagnosed with antral gastritis. -Status post transfusion 1 unit PRBCs hemoglobin stable at this morning at 8.9. Will continue to monitor hemoglobin levels closely and transfuse as needed for hemoglobin less than 7. -Continue Protonix 40 mg twice a day. -Continue telemetry monitoring. Hypertension -Continue daily medication regimen with losartan 50 mg nightly. Parkinson's disease -Continue carbidopa levodopa 25/100 mg tablets take 2 tablets 3 times daily and Ditropan 5 mg twice daily Depression -Continue Lexapro 5 g daily. Lactic acidosis, resolved after IV fluid hydration Acute kidney injury, resolved Data reviewed: Morning labs reviewed. CBC showing leukocytosis with WBC count of 11.0 and improvement of anemia with hemoglobin increasing to 8.9 status post transfusion. BMP unremarkable. Vital signs reviewed. Blood pressure 147/76, heart rate 60, respiratory rate 20, temperature 97.7F, SpO2 96% on room air. CODE STATUS: Full code DVT prophylaxis: ELISSA hose and SCDs Anticipated discharge date: Pending insurance authorization, Anticipated discharge place: Family requesting [facility] Patient was seen independently by Nurse Pracitioner. This document was prepared using [employer] ([employer]) dictation software. Please allow for errors in statistical reporting analyst, while rare they do occur. Vincent Rodrigues NP rendered care for this patient independently, reviewed the findings and plan as documented in the note above. I did not physically speak with or examine the patient on this date. Objective - Vital Signs Vital signs: Vital Signs Temp 97.7 F 05/25/23 07:52 Pulse 60 05/25/23 07:52 Resp 20 05/25/23 07:52 BP 147/76 05/25/23 07:52 Pulse Ox 96 05/25/23 07:52 FiO2 99 05/20/23 10:30 Intake & Output 05/24/23 05/25/23 05/25/23 18:59 06:59 18:59 Intake Total 276 Balance 276 Intake: Blood Product 276 Rc Pheresis 2 As3 Unit 276 [id number] Other: Voiding Method Bedpan Bedside Commode Diaper Bedpan Diaper # Voids 4 3 # Bowel Movements 1 - Labs CBC & Chem 7: 05/26/23 05:56 05/26/23 05:56 Labs: Abnormal Lab Results - Last 24 Hours (Table) 05/24/23 05/25/23 05/25/23 Range/Units 06:08 06:17 06:17 WBC 11.0 H (3.8-10.6) k/uL RBC 2.75 L (3.80-5.40) m/uL Hgb 8.9 L D (11.4-16.0) gm/dL Hct 26.5 L (34.0-46.0) % Total Protein 5.1 L (6.3-8.2) g/dL Albumin 2.9 L (3.5-5.0) g/dL Crossmatch See Detail
[2023-05-25] MEDS: LOSARTAN 50 MG TAB PO SCH (20:10)
[2023-05-26 00:18] VITALS: RESP 16
[2023-05-26] MEDS: LACTATED RINGERS 1,000 ML IV SCH (05:41)
[2023-05-26] MEDS: CARBIDOPA-LEVODOPA 25-100 MG 1 EACH TAB PO SCH ×2 (06:19→11:40)
[2023-05-26] MEDS: PANTOPRAZOLE 40 MG TABLET PO SCH (06:19)
[2023-05-26] MEDS: MIDODRINE 5 MG TAB PO SCH (06:19)
[2023-05-26 09:03] LABS: HCT 27.6 % (37.2-46.3); HGB 8.7 g/dL (12.0-15.0); MCH 31.4 pg (27.0-32.0); MCHC 31.5 g/dL (32.0-37.0); MCV 99.6 FL (80.0-97.0); Mean Platelet Volume 11.3 FL (9.5-12.2); NRBC Per 100 WBC 0 X 10*3/uL (0.00-0.01); Platelet Count 299 X 10*3/uL (140-440); RBC 2.77 X 10*6/uL (4.10-5.20); RDW 13.5 % (11.5-14.5)
[2023-05-26] MEDS: oxyBUTYnin chloride 5 MG TAB PO SCH (09:40)
[2023-05-26 09:45] LABS: ALT 7 U/L (8-44); AST 11 U/L (13-35); Albumin 3.5 g/dL (3.8-4.9); Albumin/Globulin Ratio 1.94 Ratio (1.60-3.17); Alkaline Phosphatase 68 U/L (41-126); BUN/Creat Ratio 7.31 Ratio (12.00-20.00); Blood Urea Nitrogen 9.5 mg/dL (9.0-27.0); Calcium 9.1 mg/dL (8.7-10.3); Chloride 104 mmol/L (96-109); Globulin 1.8 g/dL (1.6-3.3); Glucose 89 mg/dL (70-110); Sodium 142 mmol/L (135-145); Total Bilirubin 0.3 mg/dL (0.3-1.2); Total Protein 5.3 g/dL (6.2-8.2)
--- NOTE | 2023-05-26 09:59 | P.DS ---
Providers Date of admission: 05/21/23 11:09 Expected date of discharge: 05/26/23 Attending physician: Sara Westfall DO Consults: 05/23/23 15:23 Consult Physician Routine Consulting Provider: Mansoor Calhoun Consult Reason/Comments: Urinary retention Do you want consulting provider notified?: Yes Primary care physician: Herman Proctor Hospital Course: Discharge Diagnosis: Severe orthostatic hypotension. Continue midodrine 10 mg 3 times daily and wear ELISSA hose at all times when out of bed. Pt to remain on fall precautions. Acute blood loss anemia, status post transfusion of 1 unit PRBCs. Repeat hemoglobin trended in stable with hemoglobin on day of discharge 8.7. Patient underwent EGD and was diagnosed with antral gastritis. Recommend repeat CBC in 1 week as well as follow up with general surgeon and mercury cell cleaner. Patient started on Protonix 40 mg daily and highly recommend avoiding NSAIDs. Hypertension. Continue daily medication regimen with losartan 50 mg nightly. Parkinson's disease. Continue carbidopa levodopa 25/100 mg tablets take 2 tablets 3 times daily and Ditropan 5 mg twice daily Depression. Continue Lexapro 5 g daily. Lactic acidosis, resolved after IV fluid hydration Acute kidney injury, resolved after IV fluid hydration. Hospital Course: Patient is a 78-year-old female with a past medical history of Parkinson's disease, depression, hypertension, and orthostatic hypotension. She presented to the emergency department on 05/19/23 with a chief complaint of dizziness. She underwent full evaluation. Labs were completed and reviewed. CBC showing mild leukocytosis with WBC count of 12.2 and normocytic anemia with hemoglobin of 11.2. BMP revealed acute kidney injury with BUN of 59, creatinine 1.58, and GFR 31. Initial lactate 3.1. Chest x-ray is negative for acute cardiopulmonary process. EKG showing normal sinus rhythm with occasional PAC at 71 bpm, showing no T-wave or ST abnormalities. KUB completed negative for acute process showing nonspecific bowel gas pattern and no significant fecal retention. Patient was admitted under our services at that time. Repeat labs showing further drop in hemoglobin and consult was placed to general surgery. General surgery took patient for endoscopy on 05/22/23 which was reported to be negative for any evidence of GI bleed showing mild antral gastritis and mild diverticulosis with no signs of diverticulitis. GI bleed likely secondary to daily NSAID use with Mobic which has been discontinued. In hospitalization patient also found to have significant orthostatic hypotension and was started on Midodrine 10 mg 3 times daily. Patient was evaluated by physical therapy. Patient previously ambulating independently with use of walker and from reports of family has significantly declined over the past 2 weeks, patient requiring moderate assistance. Physical therapy recommending nursing home facility for rehab. Patient had persistently worsening drop in hemoglobin daily. On 05/24/23 hemoglobin resulting at 6.8 requiring transfusion of 1 unit PRBCs. Patient underwent continued monitoring and condition is stable at this time. [facility] Hemoglobin is stabilized and is 8.7 on day of discharge with no episodes of GI bleeding. Physical exam: Vital signs reviewed and stable. General: Nontoxic, no distress and appears stated age. Frail. Derm: Skin warm and dry, pallor. Head: Atraumatic, normocephalic and symmetric. Eyes: EOMs intact, no lid lag, and anicteric sclera Mouth: no lip lesions, mucus membranes moist Cardiovascular: regular rate and rhythm with normal S1S2, no murmur, positive posterior tibial pulses bilaterally, and cap refill < 2 seconds. Lungs: Respirations even, regular, and unlabored on room air. Lungs CTA bilaterally, no rhonchi, no rales, no wheezing, and no accessory muscle usage. Abdominal: soft, nontender to palpation, no guarding, no appreciable organomegaly Ext: ROM intact. No gross muscle atrophy, no edema, no contractures Neuro: Speech clear, face symmetrical and CN II-XII grossly intact with no noted focal neuro deficits Psych: Alert and oriented to person, place, time, and situation. Appropriate and pleasant affect. A total of 35 minutes of time were spent preparing this complex discharge summary. Pt was discharged on 05/26/23 at 9:40 AM. Patient was seen independently by Nurse Practitioner. This document was prepared using [employer] dictation software. Please allow for errors in watch hairspring assembler while rare they do occur. Vincent Rodrigues NP rendered care for this patient independently, reviewed the findings and plan as documented in the note above. I did not physically speak with or examine the patient on this date. Patient Condition at Discharge: Stable Plan - Discharge Summary Discharge Rx Participant: Yes New Discharge Prescriptions: New Acetaminophen Tab [Tylenol] 650 mg PO Q4H PRN #30 tab PRN Reason: Pain Pantoprazole [Protonix] 40 mg PO DAILY #30 tab oxyBUTYnin chloride [Ditropan] 5 mg PO BID tab Midodrine [ProAmatine] 10 mg PO AC-BID tab Continue Carbidopa-Levodopa 25-100 mg [Sinemet 25-100 mg] 2 tab PO TID@0600,1100,1500 Escitalopram [Lexapro] 5 mg PO DAILY@1200 Losartan Potassium 50 mg PO HS Discontinued Meloxicam [Mobic] 15 mg PO HS Nitrofurantoin Monohyd/M-Cryst [Macrobid] 100 mg PO BID Discharge Medication List Carbidopa-Levodopa 25-100 mg [Sinemet 25-100 mg] 2 tab PO TID@0600,1100,1500 01/19/19 [History] Escitalopram [Lexapro] 5 mg PO DAILY@1200 05/07/23 [History] Losartan Potassium 50 mg PO HS 05/19/23 [History] Acetaminophen Tab [Tylenol] 650 mg PO Q4H PRN #30 tab 05/23/23 [Rx] Pantoprazole [Protonix] 40 mg PO DAILY #30 tab 05/23/23 [Rx] Midodrine [ProAmatine] 10 mg PO AC-BID tab 05/26/23 [Rx] oxyBUTYnin chloride [Ditropan] 5 mg PO BID tab 05/26/23 [Rx] Follow up Appointment(s)/Referral(s): [facility], [NON-STAFF] - 1 Week Dione Siddiqui MD [STAFF PHYSICIAN] - 1 Week (Your hemoglobin is stable, but highly recommend outpatient follow up with a mercury cell cleaner for further evaluation.) Herman Zamora DO [Primary Care Provider] - 1-2 days Reed Mills MD [STAFF PHYSICIAN] - 1 Week Ambulatory/Diagnostic Orders: Complete Blood Count w/diff [LAB.AMB] Time Frame: 1 Week, Location: None Selected Complete Blood Count w/diff [LAB.AMB] Time Frame: 2 Days, Location: None Selected Patient Instructions/Handouts: Gastrointestinal Bleeding (DC), Hypotension (DC) Activity/Diet/Wound Care/Special Instructions: Activity: As tolerated. Patient requires assistance and supervision with ambulation. Secondary to orthostatic hypotension recommended changing positions slowly from lying to sitting, sitting to standing, and standing before walking. Diet: Heart healthy and carb consistent diet. Avoid salts, or foods with hidden salts such as canned or boxed foods and frozen dinners. Special Instructions: Take all of your medications as directed and remember to keep all of your doctor's appointments and follow-up as needed. Recommend repeat CBC in 2 days and 1 week with results to be sent to PCP and general surgeon for follow up and management. Continue Protonix 40 mg daily for life and strongly recommend avoidance of NSAIDs. Thank you for allowing us to participate in your care, it was truly a pleasure having you for our patient!!! Discharge Disposition: TRANSFER TO SNF/ECF
[2023-05-26] MEDS: ESCITALOPRAM 5 MG TAB PO SCH (11:40)
[2023-05-26 14:01] VITALS: BP 105/52; PULSE 84; TEMP 97.6
== END 2023-05-26 13:52 | DRG 378 ==
LOC: EC 08:05 → 6NMEDSUR 11:26 → OBSVTOIN 05-21 11:09
PROVIDERS: ADMIT Internal Medicine; ATTEND Internal Medicine
PROC: 0DJD8ZZ Inspection of Lower Intestinal Tract, Via Natural or Artificial Opening Endoscopic (ICD-10-PCS; principal; 2023-05-22 10:05)
PROC: 0DB78ZX Excision of Stomach, Pylorus, Via Natural or Artificial Opening Endoscopic, Diagnostic (ICD-10-PCS; 2023-05-22 10:05)
PROC: 30233N1 Transfusion of Nonautologous Red Blood Cells into Peripheral Vein, Percutaneous Approach (ICD-10-PCS; 2023-05-24)
DX: K29.51 Unspecified chronic gastritis with bleeding (principal); D62 Acute posthemorrhagic anemia; N17.9 Acute kidney failure, unspecified; Q60.0 Renal agenesis, unilateral; E87.20 Acidosis, unspecified; N39.0 Urinary tract infection, site not specified; N31.8 Other neuromuscular dysfunction of bladder; G20.A1 Parkinson's disease without dyskinesia, without mention of fluctuations; I10 Essential (primary) hypertension; E86.0 Dehydration; K57.30 Diverticulosis of large intestine without perforation or abscess without bleeding; I95.1 Orthostatic hypotension; F32.A Depression, unspecified; T39.395A Adverse effect of other nonsteroidal anti-inflammatory drugs [NSAID], initial encounter; I49.3 Ventricular premature depolarization; R33.8 Other retention of urine; Z74.2 Need for assistance at home and no other household member able to render care; Z91.81 History of falling; Z79.1 Long term (current) use of non-steroidal anti-inflammatories (NSAID); Z88.5 Allergy status to narcotic agent; Z79.899 Other long term (current) drug therapy; Z87.891 Personal history of nicotine dependence
CPT/HCPCS: 36415; 43239; 45378; 71046; 74018; 80048; 80053; 81003; 82272; 82728; 83540; 83550; 83605; 83735; 84443; 85025; 85027; 86850; 86900; 86901; 86920; 88305; 93005; 96360; 96361; 99285

== ENCOUNTER → 2023-12-02 | Outpatient (CLI) | payer MEDICARE, OTHER ==
--- NOTE | 2023-12-02 19:42 | XR ---
EXAMINATION TYPE: XR orbit complete bilateral DATE OF EXAM: 12/02/2023 5:17 PM CLINICAL INDICATION:Female, 78 years old with history of G501 FACIAL PAIN; YCH Rule out foreign body. COMPARISON: None TECHNIQUE: XR orbit complete bilateral views the orbits frontal, lateral and Pugh. FINDINGS: Radiographic evaluation of the orbits fail to demonstrate evidence of an orbital fracture. There is n o radiopaque foreign body identified. The adjacent paranasal sinuses are well aerated an without evid ence of intra-cavitary fluid accumulation. IMPRESSION: No obvious fracture. If a radiographically occult fracture is clinically suspected, thin-section CT s can of the orbits is a more sensitive study to exclude subtle maxillofacial traumatic injuries.
== END | disposition home or self-care (01) ==
LOC: RADXRYALE 16:59
PROVIDERS: ATTEND Family Medicine
DX: G50.1 Atypical facial pain (principal)
CPT/HCPCS: 70200

== ENCOUNTER 2024-03-22 05:04 | Emergency (ER) | payer MEDICARE, OTHER ==
--- NOTE | 2024-03-22 05:24 | ED ---
Fall HPI - General Chief Complaint: Fall Stated Complaint: Fall Time Seen by Provider: 03/22/24 05:20 Source: EMS, RN notes reviewed, old records reviewed, Caregiver Mode of arrival: EMS Limitations: no limitations - History of Present Illness Initial Comments: This is a 79-year-old female to the ER after a slip and fall fall with severe left hip. Patient hit the ground unable to get up patient presents by EMS for evaluation regarding severe left hip pain MD Complaint: fall -: hour(s) Fall From: standing When Fall Occurred: 1 hour MANAGER ORDER Fall Witnessed: yes, by family Place Fall Occurred: home Loss of Consciousness: none Prolonged Down Time?: no Symptoms Prior to Fall: none Location - Extremities: Left: Thigh Severity: severe Quality: sharp Context: tripped/slipped Associated Symptoms: denies - Related Data Home Medications Medication Instructions Recorded Confirmed Carbidopa-Levodopa 25-100 mg 2 tab PO TID@0600,1100,1500 01/19/19 05/19/23 [Sinemet 25-100 mg] Escitalopram [Lexapro] 5 mg PO DAILY@1200 05/07/23 05/19/23 Losartan Potassium 50 mg PO HS 05/19/23 05/19/23 Previous Rx's Medication Instructions Recorded Acetaminophen Tab [Tylenol] 650 mg PO Q4H PRN #30 tab 05/23/23 Pantoprazole [Protonix] 40 mg PO DAILY #30 tab 05/23/23 Midodrine [ProAmatine] 10 mg PO AC-BID tab 05/26/23 oxyBUTYnin chloride [Ditropan] 5 mg PO BID tab 05/26/23 Allergies Allergy/AdvReac Type Severity Reaction Status Date / Time morphine Allergy Rash/Hives Verified 03/22/24 05:09 Review of Systems ROS Statement: Those systems with pertinent positive or pertinent negative responses have been documented in the HPI. ROS Other: All systems not noted in ROS Statement are negative. Past Medical History Past Medical History: Hypertension, Neurologic Disorder, Renal Disease Additional Past Medical History / Comment(s): parkinsons,has mobility balance is sues-uses cane when needed, has only rt kidney History of Any Multi-Drug Resistant Organisms: None Reported Past Surgical History: Appendectomy, Tubal Ligation Additional Past Surgical History / Comment(s): surgery for "floating" rt kidney Past Anesthesia/Blood Transfusion Reactions: Postoperative Nausea & Vomiting (PONV) Past Psychological History: No Psychological Hx Reported Smoking Status: Former smoker Past Alcohol Use History: Daily Past Drug Use History: None Reported - Past Family History Daughter(s) Family Medical History: Diabetes Mellitus General Exam General appearance: alert, in no apparent distress Head exam: Present: atraumatic, normocephalic, normal inspection Eye exam: Present: normal appearance, PERRL, EOMI. Absent: scleral icterus, conjunctival injection, periorbital swelling ENT exam: Present: normal exam, mucous membranes moist Neck exam: Present: normal inspection. Absent: tenderness, meningismus, lymphadenopathy Respiratory exam: Present: normal lung sounds bilaterally. Absent: respiratory distress, wheezes, rales, rhonchi, stridor Cardiovascular Exam: Present: regular rate, normal rhythm, normal heart sounds. Absent: systolic murmur, diastolic murmur, rubs, gallop, clicks GI/Abdominal exam: Present: soft, normal bowel sounds. Absent: distended, tenderness, guarding, rebound, rigid Extremities exam: Present: normal inspection, full ROM, normal capillary refill. Absent: tenderness, pedal edema, joint swelling, calf tenderness Back exam: Present: normal inspection Neurological exam: Present: alert, oriented X3, CN II-XII intact Psychiatric exam: Present: normal affect, normal mood Skin exam: Present: warm, dry, intact, normal color. Absent: rash Course Vital Signs 03/22/24 03/22/24 03/22/24 05:05 06:04 06:51 Temperature 97.5 F L Pulse Rate 66 70 71 Respiratory 16 18 18 Rate Blood Pressure 165/74 166/80 166/73 O2 Sat by Pulse 97 97 95 Oximetry 03/22/24 09:01 Temperature 98 F Pulse Rate 78 Respiratory 18 Rate Blood Pressure 166/73 O2 Sat by Pulse 96 Oximetry - Reevaluation(s) Reevaluation #1: 03/22/24 05:24 Records reviewed Reevaluation #2: 03/22/24 05:47 Patient symptoms improved Reevaluation #3: patient informed of results and questions answered Reevaluation #4: Was pt. sent in by a medical professional or institution (, PA, BEEF PUSHER, urgent care, hospital, or jail...) When possible be specific @ -no Did you speak to anyone other than the patient for history (EMS, parent, family, police, friend...)? What history was obtained from this source @ -no Did you review nursing and triage notes (agree or disagree)? Why? @ -agree Are old charts reviewed (outside hosp., previous admission, EMS record, old EKG, old radiological studies, urgent care reports/EKG's, jail records)? Report findings @ -yes Differential Diagnosis (chest pain, altered mental status, abdominal pain women, abdominal pain men, vaginal bleeding, weakness, fever, dyspnea, syncope, headache, dizziness, GI bleed, back pain, seizure, CVA, palpatations, mental health, musculoskeletal)? @ -prior EKG interpreted by me (3pts min.). @ -yes X-rays interpreted by me (1pt min.). @ -yes positive for left acetabular fracture CT interpreted by me (1pt min.). @ -no U/S interpreted by me (1pt. min.). @ -no What testing was considered but not performed or refused? (CT, X-rays, U/S, labs)? Why? @ -none What meds were considered but not given or refused? Why? @ -none Did you discuss the management of the patient with other professionals (professionals i.e. , PA, BEEF PUSHER, lab, RT, psych nurse, foster care social worker, production support manager, teacher, giving officer, watch caser)? Give summary @ -no Was smoking cessation discussed for >3mins.? @ -no Was critical care preformed (if so, how long)? @ -no Were there social determinants of health that impacted care today? How? (Homelessness, low income, unemployed, alcoholism, drug addiction, trans portation, low edu. Level, literacy, decrease access to med. care, nursing home, rehab)? @ -none Was there de-escalation of care discussed even if they declined (Discuss DNR or withdrawal of care, Hospice)? DNR status @ -no What co-morbidities impacted this encounter? (DM, HTN, Smoking, COPD, CAD, Cancer, CVA, ARF, Chemo, Hep., AIDS, mental health diagnosis, sleep apnea, morbid obesity)? @ -none Was patient admitted / discharged? Hospital course, mention meds given and route, prescriptions, significant lab abnormalities, going to OR and other pertinent info. @ - 79 female to ER with fall fall resulting in left pelvic and left acetabular fracture. Patient transferred to other facility for trauma orthopedic evaluation Transferred to inpatient Undiagnosed new problem with uncertain prognosis? @ -no Drug Therapy requiring intensive monitoring for toxicity (Heparin, Nitro, Insulin, Cardizem)? @ -no Were any procedures done? @ -no Diagnosis/symptom? @ -Left acetabular fracture, fall Acute, or Chronic, or Acute on Chronic? @ -Acute Uncomplicated (without systemic symptoms) or Complicated (systemic symptoms)? @ -Complicated Side effects of treatment? @ -no Exacerbation, Progression, or Severe Exacerbation? @ -exacerbation Poses a threat to life or bodily function? How? (Chest pain, [place], [place], pneumonia, PE, COPD, DKA, ARF, appy, cholecystitis, CVA, Diverticulitis, Homicidal, Suicidal, threat to staff... and all critical care pts) @ -no - Consultations Consultation #1: Spoke with [facility] accept patient as a transfer patient Medical Decision Making - Medical Decision Making 79 female to ER with fall fall resulting in left pelvic and left acetabular fracture. Patient transferred to other facility for trauma orthopedic evaluation - Lab Data Result diagrams: 03/22/24 05:27 03/22/24 05:27 Lab Results 03/22/24 03/22/24 03/22/24 Range/Units 05:27 05:27 05:27 WBC 12.1 H (3.8-10.6) k/uL RBC 4.04 (3.80-5.40) m/uL Hgb 13.4 (11.4-16.0) gm/dL Hct 40.1 (34.0-46.0) % MCV 99.4 (80.0-100.0) fL MCH 33.1 (25.0-35.0) pg MCHC 33.3 (31.0-37.0) g/dL RDW 12.8 (11.5-15.5) % Plt Count 256 (150-450) k/uL MPV 7.9 Neutrophils % 82 % Lymphocytes % 11 % Monocytes % 4 % Eosinophils % 2 % Basophils % 0 % Neutrophils # 9.9 H (1.3-7.7) k/uL Lymphocytes # 1.3 (1.0-4.8) k/uL Monocytes # 0.5 (0-1.0) k/uL Eosinophils # 0.2 (0-0.7) k/uL Basophils # 0.0 (0-0.2) k/uL PT 10.3 (10.0-12.5) sec INR 0.9 (<1.2) APTT 23.3 (22.0-30.0) sec Sodium 139 (137-145) mmol/L Potassium 3.9 (3.5-5.1) mmol/L Chloride 108 H (98-107) mmol/L Carbon Dioxide 29 (22-30) mmol/L Anion Gap 2 mmol/L BUN 22 H (7-17) mg/dL Creatinine 0.94 (0.52-1.04) mg/dL Est GFR (CKD-EPI)AfAm 67 (>60 ml/min/1.73 sqM) Est GFR (CKD-EPI)NonAf 58 (>60 ml/min/1.73 sqM) Glucose 119 H (74-99) mg/dL Plasma Lactic Acid Jovani (0.7-2.0) mmol/L Calcium 9.3 (8.4-10.2) mg/dL Phosphorus 3.3 (2.5-4.5) mg/dL Magnesium 2.1 (1.6-2.3) mg/dL Total Bilirubin 0.6 (0.2-1.3) mg/dL AST 29 (14-36) U/L ALT 12 (4-34) U/L Alkaline Phosphatase 85 (38-126) U/L Troponin I (0.000-0.034) ng/mL NT-Pro-B Natriuret Pep 179 pg/mL Total Protein 6.5 (6.3-8.2) g/dL Albumin 3.9 (3.5-5.0) g/dL 03/22/24 03/22/24 Range/Units 05:27 05:27 WBC (3.8-10.6) k/uL RBC (3.80-5.40) m/uL Hgb (11.4-16.0) gm/dL Hct (34.0-46.0) % MCV (80.0-100.0) fL MCH (25.0-35.0) pg MCHC (31.0-37.0) g/dL RDW (11.5-15.5) % Plt Count (150-450) k/uL MPV Neutrophils % % Lymphocytes % % Monocytes % % Eosinophils % % Basophils % % Neutrophils # (1.3-7.7) k/uL Lymphocytes # (1.0-4.8) k/uL Monocytes # (0-1.0) k/uL Eosinophils # (0-0.7) k/uL Basophils # (0-0.2) k/uL PT (10.0-12.5) sec INR (<1.2) APTT (22.0-30.0) sec Sodium (137-145) mmol/L Potassium (3.5-5.1) mmol/L Chloride (98-107) mmol/L Carbon Dioxide (22-30) mmol/L Anion Gap mmol/L BUN (7-17) mg/dL Creatinine (0.52-1.04) mg/dL Est GFR (CKD-EPI)AfAm (>60 ml/min/1.73 sqM) Est GFR (CKD-EPI)NonAf (>60 ml/min/1.73 sqM) Glucose (74-99) mg/dL Plasma Lactic Acid Jovani 1.3 (0.7-2.0) mmol/L Calcium (8.4-10.2) mg/dL Phosphorus (2.5-4.5) mg/dL Magnesium (1.6-2.3) mg/dL Total Bilirubin (0.2-1.3) mg/dL AST (14-36) U/L ALT (4-34) U/L Alkaline Phosphatase (38-126) U/L Troponin I <0.012 (0.000-0.034) ng/mL NT-Pro-B Natriuret Pep pg/mL Total Protein (6.3-8.2) g/dL Albumin (3.5-5.0) g/dL - EKG Data -: EKG Interpreted by Me (EKG is sinus 64 MN 175 QRS 65 QTc 411) - Radiology Data Radiology results: report reviewed (Chest x-ray negative for acute disease x-ray pelvis and left hip positive for left acetabular fracture as well as left inferior and superior pubic rami), image reviewed Disposition Clinical Impression: Fall, Closed left hip fracture, Left acetabular fracture, Pelvic fracture Disposition: OTHER INSTITUTION NOT DEFINED Condition: Fair Is patient prescribed a controlled substance at d/c from ED?: No Referrals: Herman Zamora DO [Primary Care Provider] - 1-2 days Time of Disposition: 06:30 - Out of Hospital Transfer - Req. Specs Out of Hospital Transfer - Requested Specifics: Other Emergency Center ([facility])
[2024-03-22] MEDS: ONDANSETRON 4 MG/2 ML VIAL IVP STA (05:32)
[2024-03-22] MEDS: SODIUM CHLORIDE 0.9% 1,000 ML IV STA (05:33)
[2024-03-22] MEDS: HYDROmorphone 0.5 MG/0.5 ML SYRINGE IVP STA ×2 (05:33→08:52)
[2024-03-22 05:44] LABS: Basophils % (A) 0 %; Eosinophils # (A) 0.2 k/uL (0-0.7); Eosinophils % (A) 2 %; HCT 40.1 % (34.0-46.0); HGB 13.4 gm/dL (11.4-16.0); Lymphocytes # (A) 1.3 k/uL (1.0-4.8); Lymphocytes % (A) 11 %; MCH 33.1 pg (25.0-35.0); MCHC 33.3 g/dL (31.0-37.0); MCV 99.4 fL (80.0-100.0); Mean Platelet Volume 7.9; Monocytes # (A) 0.5 k/uL (0-1.0); Monocytes % (A) 4 %; Neutrophils # (A) 9.9 k/uL (1.3-7.7); Neutrophils % (A) 82 %; Platelet Count 256 k/uL (150-450); RBC 4.04 m/uL (3.80-5.40); RDW 12.8 % (11.5-15.5); WBC 12.1 k/uL (3.8-10.6)
[2024-03-22 06:00] LABS: ALT 12 U/L (4-34); AST 29 U/L (14-36); African American GFR (CKD) 67 (>60 ml/min/1.73 sqM); Albumin 3.9 g/dL (3.5-5.0); Alkaline Phosphatase 85 U/L (38-126); Anion Gap 2 mmol/L; Blood Urea Nitrogen 22 mg/dL (7-17); Calcium 9.3 mg/dL (8.4-10.2); Carbon Dioxide 29 mmol/L (22-30); Chloride 108 mmol/L (98-107); Glucose 119 mg/dL (74-99); INR 0.9 (<1.2); Magnesium 2.1 mg/dL (1.6-2.3); Non-African American GFR(CKD) 58 (>60 ml/min/1.73 sqM); Partial Thromboplastin Time 23.3 sec (22.0-30.0); Phosphorus 3.3 mg/dL (2.5-4.5); Potassium 3.9 mmol/L (3.5-5.1); Prothrombin Time 10.3 sec (10.0-12.5); Sodium 139 mmol/L (137-145); Total Bilirubin 0.6 mg/dL (0.2-1.3); Total Protein 6.5 g/dL (6.3-8.2)
[2024-03-22 06:08] LABS: NT-Pro-B-Type Natriuretic Pept 179 pg/mL
[2024-03-22 06:10] VITALS: RESP 18
--- NOTE | 2024-03-22 06:10 | XR ---
EXAM: XR Chest, 1 View CLINICAL HISTORY: : fall TECHNIQUE: Frontal view of the chest. COMPARISON: May 19, 2023 FINDINGS: Lungs: Unremarkable. No acute infiltration, atelectasis or mass. Pleural space: Unremarkable. No pneumothorax or pleural fluid. Heart: Unremarkable. No cardiomegaly. Mediastinum: Unremarkable. Normal mediastinal contour. Bones/joints: Acute fracture of the mid left clavicle. IMPRESSION: Acute fracture of the mid left clavicle.
--- NOTE | 2024-03-22 06:20 | XR ---
EXAM: XR Left Hip With Pelvis When Performed, 2 or 3 Views CLINICAL HISTORY: fall TECHNIQUE: Two or three views of the left hip with pelvis when performed. COMPARISON: No relevant prior studies available. FINDINGS: Bones/joints: Acute comminuted fracture of the left acetabulum with superior and medial protrusion of the left femoral head. Acute fractures of the left superior and inferior pubic ramus. No dislocation. Soft tissues: Unremarkable. IMPRESSION: 1. Acute comminuted fracture of the left acetabulum with superior and medial protrusion of the left femoral head. 2. Acute fractures of the left superior and inferior pubic ramus.
[2024-03-22 06:52] VITALS: BP 166/73
[2024-03-22 09:02] VITALS: PULSE 78; TEMP 98
== END 2024-03-22 09:02 | disposition other institution (70) ==
LOC: EC 05:04
DX: S72.002A Fracture of unspecified part of neck of left femur, initial encounter for closed fracture (principal); S32.402A Unspecified fracture of left acetabulum, initial encounter for closed fracture; S32.592A Other specified fracture of left pubis, initial encounter for closed fracture; Z87.891 Personal history of nicotine dependence; Z88.5 Allergy status to narcotic agent; W01.0XXA Fall on same level from slipping, tripping and stumbling without subsequent striking against object, initial encounter
CPT/HCPCS: 36415; 93005; 83880; 80053; 83605; 83735; 84100; 84484; 85025; 85610; 85730; 73502; 71045; 99285; 96374; 96375; 96376; 96361; J2405; J1171

== ENCOUNTER → 2024-05-05 | Outpatient (CLI) | payer MEDICARE, OTHER ==
--- NOTE | 2024-05-10 12:33 | CT ---
EXAMINATION TYPE: CT pelvis wo con DATE OF EXAM: 05/05/2024 9:18 AM COMPARISON: CT abdomen pelvis most recent from 06/22/2020 CLINICAL INDICATION: Female, 79 years old with history of S32.512A FX PELVIS; left superior pubic darin us fx TECHNIQUE: Axial CT pelvis wo con;Sagittal and coronal reformats were created on a separate workstat ion. Contrast used: mL of , (none if empty) Oral contrast used: without Oral Contrast (none if empty) CT DLP: 278.5 mGycm, Automated exposure control for dose reduction was used. FINDINGS: BLADDER: No evidence for wall thickening or mass given limitations of exam. REPRODUCTIVE: Unremarkable. ABDOMEN & PELVIS STOMACH AND BOWEL: No evidence of bowel obstruction. PERITONEUM/RETROPERITONEUM: No evidence of pneumoperitoneum or free fluid. VASCULATURE: No evidence of aortic aneurysm. MUSCULOSKELETAL: Comminuted left intra-articular fracture with hardware present. Incomplete osseous f usion of fracture fragments on the left hip. Abnormal morphology to the left femoral head likely dege neration from prior fracture. Incomplete osseous fusion of the left inferior pubic ramus fracture. Hardware appears intact. Mild joint space narrowing and osteophyte formation of the right hip. Multilevel degeneration changes of the spine. LYMPH NODES: No gross evidence for lymphadenopathy. SOFT TISSUE/ABDOMINAL WALL: Unremarkable IMPRESSION: 1. Intra-articular left pelvic fracture with incomplete osseous fusion. 2. Deformity to the left femoral head likely secondary to prior history of fracture. 3. Additional left inferior pubic ramus fracture with incomplete osseous fusion. [facility], , 05/10/2024 12:31 PM
== END | disposition home or self-care (01) ==
LOC: RADCTMAIN 08:20
PROVIDERS: ATTEND Orthopaedic Surgery
DX: S32.512A Fracture of superior rim of left pubis, initial encounter for closed fracture (principal); S32.592A Other specified fracture of left pubis, initial encounter for closed fracture
CPT/HCPCS: 72192

== ENCOUNTER → 2024-05-14 | Outpatient (CLI) | payer MEDICARE, OTHER ==
--- NOTE | 2024-05-14 12:14 | FL ---
Exam Date: 05/14/2024 12:07 PM. Modified barium swallow for dysphagia. Consistencies administered: Various consistency of barium. Fluoro time: 2 min 12 sec No images were sent to PACS. Please see speech pathology report. DAP: not reported mGym2 Gycm2 [facility], , 05/14/2024 12:11 PM
== END | disposition home or self-care (01) ==
LOC: RADFLMAIN 11:26
PROVIDERS: ATTEND Family Medicine
DX: R13.11 Dysphagia, oral phase (principal)
CPT/HCPCS: 74230

== ENCOUNTER 2024-06-07 19:33 | Emergency (ER) | payer MEDICARE, OTHER ==
--- NOTE | 2024-06-07 20:08 | ED ---
General Adult HPI - General Chief complaint: Fall Stated complaint: Fall Time Seen by Provider: 06/07/24 19:40 Source: EMS Mode of arrival: EMS Limitations: altered mental status - History of Present Illness Initial comments: Patient is a 79-year-old female with a past medical history of Parkinson's disease presenting today for fall at her assisted living facility. Patient uses a lift chair to help her to stand and needed to use bathroom, attempted to stand or lift her and shortly afterwards was found laying on her left side. Patient's states he had left the facility about 1 hour prior to patient being found on the ground so he does not think the patient was on the ground for very long. Patient is currently complaining of bilateral hip pain, worse on the right than left. Patient had a fall back in March with resultant pelvic and hip fracture that ultimately required operative intervention. Patient takes [place] at home. Patient's does not think she hit her head. He states that she is behaving at her baseline. She is not on blood thinners. History gathering from patient is limited due to Parkinson's making it difficult to understand her speech however the patient states she did not hit her head and currently endorses pain in the right hip and proximal left lower extremity. - Related Data Home Medications Medication Instructions Recorded Confirmed Carbidopa-Levodopa 25-100 mg 2 tab PO TID@0600,1100,1500 01/19/19 05/10/24 [Sinemet 25-100 mg] Escitalopram [Lexapro] 5 mg PO BID 05/07/23 05/10/24 Losartan Potassium 50 mg PO QAM 05/19/23 05/10/24 Acetaminophen Tab [Tylenol Tab] 500 mg PO Q8H 05/07/24 Cholecalciferol [Vitamin D3 (25 25 mcg PO DAILY 05/07/24 Mcg = 1000 Iu)] Cranberry Conc/C/Bacill Coag 1 each PO HS 05/07/24 [Cranberry Urinary 250-30-3.5MG] Hydrocodone/Acetaminophen 1 tab PO Q6HR PRN 05/07/24 [Hydrocodone/Acetaminophen 5-325] Melatonin 3 mg PO HS PRN 05/07/24 Naloxone HCl 4 mg NS DIRECTED 05/07/24 Saccharomyces Boulardii 250 mg PO BID 05/07/24 [Saccharomycin Df] polyethylene glycoL 3350 17 gm PO DAILY PRN 05/07/24 [Polyethylene Glycol 3350] Allergies Allergy/AdvReac Type Severity Reaction Status Date / Time morphine Allergy Rash/Hives Verified 05/07/24 09:05 Review of Systems ROS Statement: Those systems with pertinent positive or pertinent negative responses have been documented in the HPI. 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 History of Any Multi-Drug Resistant Organisms: None Reported Past Surgical History: Appendectomy, Bladder Surgery, Tubal Ligation Additional Past Surgical History / Comment(s): Surgery for "floating" rt kidney. Past Anesthesia/Blood Transfusion Reactions: Postoperative Nausea & Vomiting (PONV) Past Psychological History: No Psychological Hx Reported Smoking Status: Former smoker Past Alcohol Use History: None Reported Past Drug Use History: None Reported - Past Family History Daughter(s) Family Medical History: Diabetes Mellitus General Exam - General Exam Comments Initial Comments: PE: CONSTITUTIONAL: No apparent distress, chronically ill-appearing SKIN: Warm, dry, no jaundice, hives or petechiae no lacerations or bruises. Patient was taken to a curtain off area to be changed, during this time as able to examine patient's skin and back, there is no midline spinal tenderness palpation or signs of injury to patient's back, no lacerations or bruising present, this exam was performed with SALOMÓN Whitten as molder automobile carpets EYES: Pupils are equally round, extraocular movements intact without nystagmus, clear conjunctiva, non-icteric sclera HENT: Normocephalic, atraumatic, moist mucus membranes, oropharynx clear without exudates NECK: , C-collar in place, no midline tenderness PULMONARY: Clear to auscultation without wheezes, rhonchi, or rales, normal excursion, no accessory muscle use and no stridor, no chest wall tenderness to palpation CARDIOVASCULAR: Regular rate, rhythm, normal S1 and S2. No appreciated murmurs, rubs or gallops. Strong radial pulses with intact distal perfusion. No lower extremity edema GASTROINTESTINAL: Soft, active bowel sounds throughout, non-tender, non- distended, no palpable masses, no rebound or guarding. No hepatosplenomegaly MUSCULOSKELETAL: Extremities have no gross deformity, no edema, redness, or swelling.Tenderness to palpation right anterior iliac crest, distal left thigh, lateral left knee without deformity, upper extremities are atraumatic NEUROLOGIC: [At baseline, awake, alert, follows all commands, orientation is difficult to assess due to patient's history of Parkinson's and difficulty speaking at baseline, however she appears oriented, recognizes her , is able to answer yes or no questions regarding her fall and areas of pain, over all is diffusely weak, however is able to move all 4 extremities through full ROM, 4/5 strength throughout PSYCHIATRIC: Calm and cooperative Limitations: altered mental status Course Vital Signs 06/07/24 06/08/24 19:35 00:16 Temperature 99.1 F 98.1 F Pulse Rate 63 72 Respiratory 12 18 Rate Blood Pressure 132/71 169/79 O2 Sat by Pulse 96 96 Oximetry Medical Decision Making - Medical Decision Making Was pt. sent in by a medical professional or institution (, PA, ADMISSIONS RN, urgent care, hospital, or penitentiary...) When possible be specific @Patient is by [facility] Did you speak to anyone other than the patient for history (EMS, parent, family, police, friend...)? What history was obtained from this source @ -Spoke with patient's who assisted in providing history, states that he had seen the patient about an hour prior to being called regarding her fall Did you review nursing and triage notes (agree or disagree)? Why? @ -I reviewed and agree with nursing and triage notes Were old charts reviewed (outside hosp., previous admission, EMS record, old EKG, old radiological studies, urgent care reports/EKG's, penitentiary records)? Report findings @Medical records reviewed-patient here in March of this year for a fall with resultant left acetabular fracture and was ultimately transferred to another facility for trauma Ortho evaluation Differential Diagnosis (chest pain, altered mental status, abdominal pain women, abdominal pain men, vaginal bleeding, weakness, fever, dyspnea, syncope, headache, dizziness, GI bleed, back pain, seizure, CVA, palpatations, mental health, musculoskeletal)? Differential Musculoskeletal Muscular strain, contusion, ligament sprain, fracture, arthritis, bursitis, muscle spasm, .... This is not meant to be in all inclusive list EKG interpreted by me (3pts min.). @ -As above X-rays interpreted by me (1pt min.). @Review of x-ray hips, femurs and knee, I see no evidence of fracture, dislocation or malalignment CT interpreted by me (1pt min.). @Reviewed CT brain, I see no evidence of hemorrhage, or skull fracture, reviewed CT C-spine COVID no evidence of fracture or malalignment U/S interpreted by me (1pt. min.). @ -None done What testing was considered but not performed or refused? (CT, X-rays, U/S, labs)? Why? @ -None What meds were considered but not given or refused? Why? @ -None Did you discuss the management of the patient with other professionals (professionals i.e. , PA, ADMISSIONS RN, lab, RT, psych nurse, social work manager, picker/puller, teacher, consular officer, dependency case manager)? Give summary @ -No Was smoking cessation discussed for >3mins.? @ -No Was critical care preformed (if so, how long)? @ -No Were there social determinants of health that impacted care today? How? (Homelessness, low income, unemployed, alcoholism, drug addiction, transportation, low edu. Level, literacy, decrease access to med. care, custodial, rehab)? Patient has limited ability to state due to parkinsonism Was there de-escalation of care discussed even if they declined (Discuss DNR or withdrawal of care, Hospice)? @ -No What co-morbidities impacted this encounter? (DM, HTN, Smoking, COPD, CAD, Cancer, CVA, ARF, Chemo, Hep., AIDS, mental health diagnosis, sleep apnea, morbid obesity)? Parkinson disease Was patient admitted / discharged? Hospital course, mention meds given and route, prescriptions, significant lab abnormalities, going to OR and other pertinent info. @Discharge -this is a pleasant 79 female history of Parkinson's presenting today with her due to a fall onto her left side. Fall was unwitnessed however patient's was able to surmise that patient appeared to time to get up out of her lift chair to use the bathroom independently and fell on her left side. States patient acting at baseline. Is predominantly concerned for patient's right hip and proximal right lower extremity due to history of surgery on the regions this fall. Patient will be given her home [place] dose plan for plain films of the hips femurs and left knee. Given fall was unwitnessed, patient's age and history obtaining is limited due to patient's parkinsonism CT brain and C-spine will be obtained as well. Plan films negative for acute traumatic process. CT brain C-spine negative for acute traumatic process. On reassessment patient states her pain is controlled. Updated patient and the findings. After reviewing patient's imaging I updated patient to imaging findings and cleared their C-Spine. There is no midline cervical neck tenderness or step-offs. The patient denies any numbess, tingling, or weakness of the extremities when moving neck through full ROM. The patient is able to range their neck completely without midline cervical pain, numbness, tingling or weakness. Discussed with patient's plan for discharge he is agreeable plan of care. Patient discharged in stable condition. Undiagnosed new problem with uncertain prognosis? @ -No Drug Therapy requiring intensive monitoring for toxicity (Heparin, Nitro, Insulin, Cardizem)? @ -No Were any procedures done? @ -No Diagnosis/symptom? @ -Fall Acute, or Chronic, or Acute on Chronic? @Fall Uncomplicated (without systemic symptoms) or Complicated (systemic symptoms)? Uncomplicated Side effects of treatment? @ -No Exacerbation, Progression, or Severe Exacerbation? @ -No Poses a threat to life or bodily function? How? (Chest pain, [place], [place], pneumonia, PE, COPD, DKA, ARF, appy, cholecystitis, CVA, Diverticulitis, Homicidal, Suicidal, threat to staff... and all critical care pts) @ -No Disposition Clinical Impression: Fall Disposition: HOME SELF-CARE Condition: Stable Instructions (If sedation given, give patient instructions): Fall Prevention (ED) Additional Instructions: Every disease is a spectrum and a small chance still exists that a serious condition could develop, for this reason, please monitor yourself closely for new, changing or worsening symptoms, pain that cannot be controlled at home, fever, inability to tolerate/keep down fluids or your medications, inability to follow up with outpatient providers as instructed and should you experience these symptoms or should you have any further concerns for your wellbeing please return to the ED or call 911 immediately. PLEASE call your primary care physician as soon as possible to arrange / discuss plan for followup appointment. Appointment in the next 1-3 days is strongly encouraged if possible. PLEASE let us know here before you leave if there is anything further we can do to be of any assistance. Take care and feel Better! Is patient prescribed a controlled substance at d/c from ED?: No Referrals: Heramn Zamora DO [Primary Care Provider] - 1-2 days
[2024-06-07] MEDS: HYDROcodone/APAP 5-325MG 1 EACH TAB PO STA (20:22)
--- NOTE | 2024-06-07 20:51 | CT ---
EXAMINATION TYPE: CT brain burkeine wo con DATE OF EXAM: 06/07/2024 8:43 PM COMPARISON: 05/07/2023 CLINICAL INDICATION: Female, 79 years old with history of Trauma, Fell from chair, No LOC. TECHNIQUE: CT of the brain is performed utilizing 3 mm thick sections through the posterior fossa and 3 mm thick sections through the remaining calvarium. Study is performed within 24 hours of arrival to the hospital. Contrast used: mL of , (none if empty) CT DLP: 1366.6 mGycm, Automated exposure control for dose reduction was used. FINDINGS: No abnormal hyperdensity is present to suggest an acute intracranial hemorrhage. No mass lesion is evident. No acute infarcts are evident. There is mild periventricular white matter hypodensity, likely on the basis of chronic white matter ischemic changes Ventricles and sulci are prominent for the patient age. Paranasal sinuses and mastoid air cells within the [id number] are clear. Excellent findings are s table from comparison IMPRESSIONS: 1. No acute intracranial process. Follow-up MRI can be performed as clinically indicated. 2. Mild Chronic appearing periventricular white matter ischemic type changes with moderate atrophy CT cervical spine. COMPARISON: None TECHNIQUE: CT of the cervical spine is performed in the axial plane at 2 mm thick sections. Reconstr ucted images in the coronal, and sagittal plane are reviewed on the computer. FINDINGS: No acute fractures are evident. Vertebral body alignment is normal. Disc heights are preserved. Vertebral body heights are preserved. No spinal canal stenosis is evident. No neural foraminal stenosis is evident. IMPRESSION: 1. No acute osseous abnormality cervical spine [facility], , 06/07/2024 8:48 PM
--- NOTE | 2024-06-07 22:29 | XR ---
EXAMINATION TYPE: XR femur bilateral DATE OF EXAM: 06/07/2024 8:56 PM COMPARISON: None. CLINICAL INDICATION: Female, 79 years old with history of fall, bilat hip/thigh pain, pain TECHNIQUE: 2 view(s) obtained each femur. FINDINGS: Left femur: There is loss of the femoral head. Advanced degenerative changes through the acetabulum. Prior plate and screw repair of the pelvis is evident. No acute fracture of the left femur is evident . Mild degenerative joint changes are within the knee. No joint effusion is evident. Right femur: Femoral head articulates with the acetabulum. Joint space is narrowed. No acute fracture or dislocation evident. Mild degenerative changes are within the knee joint space. No joint effusion is evident. IMPRESSION: 1. Advanced degenerative changes at the left acetabulum and femoral head. 2. No acute osseous abnormality radiographically apparent [facility], , 06/07/2024 10:26 PM
--- NOTE | 2024-06-07 22:30 | XR ---
EXAMINATION TYPE: XR knee 4V LT DATE OF EXAM: 06/07/2024 8:56 PM COMPARISON: None. CLINICAL INDICATION: Female, 79 years old with history of fall, TTP left knee, pain TECHNIQUE: 4 view(s) obtained. FINDINGS: Mild joint space narrowing is present. No acute fracture or dislocation of the left knee. No joint ef fusion is evident. Patellofemoral joint space appears preserved. Follow-up exam can be performed 7-10 days from acute trauma for continued pain. IMPRESSION: 1. Mild degenerative changes left knee [facility], , 06/07/2024 10:27 PM
--- NOTE | 2024-06-07 22:31 | XR ---
EXAMINATION TYPE: XR Hip Bilateral and AP pelvis DATE OF EXAM: 06/07/2024 8:56 PM COMPARISON: None. CLINICAL INDICATION: Female, 79 years old with history of fall, bilat hip pain R>L, pain TECHNIQUE: AP view(s) obtained. FINDINGS: Advanced degenerative changes with loss of the left femoral head and destruction within the left acet abulum is evident. Prior plate and screw repair of the pelvis is evident nonspecific bowel gas is pre sent. There is moderate degenerative changes of the right hip. Sacroiliac joints are patent. IMPRESSION: 1. No acute osseous abnormalities AP pelvis. 2. Advanced degenerative changes left hip. 3. Prior left hemipelvis repair [facility], , 06/07/2024 10:29 PM
[2024-06-08 00:26] VITALS: BP 169/79; PULSE 72; RESP 18; TEMP 98.1
== END 2024-06-08 00:20 | disposition home or self-care (01) ==
LOC: EC 19:33
DX: G20.A1 Parkinson's disease without dyskinesia, without mention of fluctuations (principal); Z88.1 Allergy status to other antibiotic agents; Z87.891 Personal history of nicotine dependence; W07.XXXA Fall from chair, initial encounter
CPT/HCPCS: 70450; 72125; 73521; 99284